=== PATIENT | female | born 1955 | race African-American/Black ===

== ENCOUNTER 2018-06-03 00:55 | Emergency (ER) | payer OTHER ==
[~2018-06-03] VITALS: Ht 157.5 cm; Wt 90.7 kg
--- NOTE | 2018-06-03 02:13 | PHYS DOC ---
Past Medical History Past Medical History: CHF, Dementia, Diabetes-Type II, Hypertension, P.U.D., Seizure, Other Additional Past Medical Histor: paci menegitis of the brain, pagent's disease, sickle beta thalacemia Past Surgical History: Cholecystectomy, , Other Additional Past Surgical Histo: fluid removal brain Alcohol Use: None Drug Use: None Adult General Chief Complaint Chief Complaint: ABDOMINAL PAIN [facility] HPI Patient is a 63 year old female who presents with right-sided abdominal pain. 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 Pain [proximally 4 days ago. Patient previously had an issue similar to this with a GI bleed/ulcers. Patient has had no previous surgical history. Unable to determine what paly's or provokes this discomfort. There is been no change in bowel habits, no blood in the stool, no nausea or vomiting. Pain radiates into the patient's right chest. No change with deep breaths. May be a little bit worse with walking however that the answer varies depending on how the question is asked.[] Review of Systems Review of Systems Constitutional: Denies fever or chills [] Eyes: Denies change in visual acuity, redness, or eye pain [] HENT: Denies nasal congestion or sore throat [] Respiratory: Denies cough or shortness of breath [] Cardiovascular: No additional information not addressed in HPI [] GI: See history of present illness[] : Denies dysuria or hematuria [] Musculoskeletal: Denies back pain or joint pain [] Integument: Denies rash or skin lesions [] Neurologic: Denies headache, focal weakness or sensory changes [] Endocrine: Denies polyuria or polydipsia [] All other systems were reviewed and found to be within normal limits, except as documented in this note. Current Medications Current Medications Current Medications Medications (Trade) Dose Ordered Sig/Anat Start Time Stop Time Status Last Admin Dose Admin Hyoscyamine (Anaspaz) 0.125 mg ONCE ONCE 06/03/18 02:30 06/03/18 02:31 DC 06/03/18 03:27 0.125 MG Info (CONTRAST GIVEN -- Rx MONITORING) 1 each PRN DAILY PRN 06/03/18 02:30 06/05/18 02:29 Iohexol (Omnipaque 300 Mg/ml) 75 ml 1X ONCE 06/03/18 02:30 06/03/18 02:31 DC 06/03/18 03:08 75 ML Ondansetron HCl (Zofran) 4 mg 1X ONCE 06/03/18 02:30 06/03/18 02:31 DC 06/03/18 03:28 4 MG Tramadol HCl (Ultram) 50 mg 1X ONCE 06/03/18 04:30 06/03/18 04:31 Allergies Allergies Allergies Coded Allergies Type Severity Reaction Last Updated Verified [place] And Derivatives Allergy Intermediate 06/03/18 Yes Penicillins Allergy Intermediate 06/03/18 Yes Physical Exam Physical Exam Constitutional: Well developed, well nourished, mild discomfort, non-toxic appearance. [] HENT: Normocephalic, atraumatic, bilateral external ears normal, oropharynx moist, no oral exudates, nose normal. [] Eyes: PERRLA, EOMI, conjunctiva normal, no discharge. [] Neck: Normal range of motion, no tenderness, supple, no stridor. [] Cardiovascular:Heart rate regular rhythm, no murmur [] Lungs & Thorax: Bilateral breath sounds clear to auscultation [] Abdomen: Bowel sounds normal, soft, right-sided tenderness, no masses, no pulsatile masses. No rebound, guarding, nor rigidity.[] Skin: Warm, dry, no erythema, no rash. [] Back: No tenderness, no CVA tenderness. [] Extremities: No tenderness, no cyanosis, no clubbing, ROM intact, no edema. [] Neurologic: Alert and oriented X2, normal motor function, normal sensory function, no focal deficits noted. [] Psychologic: Affect normal, mood normal. [] Current Patient Data Vital Signs Vital Signs Date Time Temp Pulse Resp B/P (MAP) Pulse Ox O2 Delivery O2 Flow Rate FiO2 06/03/18 01:38 99.4 57 18 154/77 (102) 99 Room Air 99.4 Lab Values Laboratory Tests Test 06/03/18 02:25 06/03/18 03:35 White Blood Count 6.6 x10^3/uL (4.0-11.0) Red Blood Count 5.06 x10^6/uL (3.50-5.40) Hemoglobin 10.4 g/dL (12.0-15.5) L Hematocrit 32.0 % (36.0-47.0) L Mean Corpuscular Volume 63 fL (79-100) L Mean Corpuscular Hemoglobin 21 pg (25-35) L Mean Corpuscular Hemoglobin Concent 33 g/dL (31-37) Red Cell Distribution Width 15.2 % (11.5-14.5) H Platelet Count 219 x10^3/uL (140-400) Neutrophils (%) (Auto) 55 % (31-73) Lymphocytes (%) (Auto) 37 % (24-48) Monocytes (%) (Auto) 6 % (0-9) Eosinophils (%) (Auto) 1 % (0-3) Basophils (%) (Auto) 1 % (0-3) Neutrophils # (Auto) 3.6 x10^3uL (1.8-7.7) Lymphocytes # (Auto) 2.5 x10^3/uL (1.0-4.8) Monocytes # (Auto) 0.4 x10^3/uL (0.0-1.1) Eosinophils # (Auto) 0.0 x10^3/uL (0.0-0.7) Basophils # (Auto) 0.1 x10^3/uL (0.0-0.2) Platelet Estimate Adequate (ADEQUATE) Hypochromasia Marked Poikilocytosis Slight Microcytosis Marked Spherocytes Occ Target Cells Occ Tear Drop Cells Occ Ovalocytes Few Prothrombin Time 13.4 SEC (11.7-14.0) Prothrombin Time INR 1.1 (0.8-1.1) Sodium Level 137 mmol/L (136-145) Potassium Level 3.5 mmol/L (3.5-5.1) Chloride Level 99 mmol/L (98-107) Carbon Dioxide Level 26 mmol/L (21-32) Anion Gap 12 (6-14) Blood Urea Nitrogen 15 mg/dL (7-20) Creatinine 1.0 mg/dL (0.6-1.0) Estimated GFR (Cockcroft-Gault) 67.5 BUN/Creatinine Ratio 15 (6-20) Glucose Level 118 mg/dL (70-99) H Calcium Level 9.1 mg/dL (8.5-10.1) Total Bilirubin 0.5 mg/dL (0.2-1.0) Aspartate Amino Transferase (AST) 12 U/L (15-37) L Alanine Aminotransferase (ALT) 9 U/L (14-59) L Alkaline Phosphatase 50 U/L (46-116) Troponin I Quantitative < 0.017 ng/mL (0.000-0.055) Total Protein 7.4 g/dL (6.4-8.2) Albumin 3.2 g/dL (3.4-5.0) L Albumin/Globulin Ratio 0.8 (1.0-1.7) L Lipase 142 U/L (73-393) Urine Collection Type Unknown Urine Color Yellow Urine Clarity Clear Urine pH 6.5 Urine Specific [place] >=1.030 Urine Protein Negative mg/dL (NEG-TRACE) Urine Glucose (UA) Negative mg/dL (NEG) Urine Ketones (Stick) Negative mg/dL (NEG) Urine Blood Negative (NEG) Urine Nitrite Negative (NEG) Urine Bilirubin Negative (NEG) Urine Urobilinogen Dipstick 1.0 mg/dL (0.2 mg/dL) Urine Leukocyte Esterase Negative (NEG) Urine RBC Occ /HPF (0-2) Urine WBC 1-4 /HPF (0-4) Urine Squamous Epithelial Cells Mod /LPF Urine Bacteria 0 /HPF (0-FEW) Urine Mucus Slight /LPF Laboratory Tests 06/03/18 02:25 Laboratory Tests 06/03/18 02:25 EKG EKG EKG shows a normal sinus rhythm no ST elevations, flipped T waves in the anterolateral leads. Normal axis, normal QTC. No old EKG available for comparison[] Radiology/Procedures Radiology/Procedures Chest x-ray shows no acute features CT scan of the abdomen shows no dilated loops of bowel to suggest obstruction. Ventral fat-containing intra-abdominal wall hernia with some edema and small amount of fluid within[] Course & Med Decision Making Course & Med Decision Making Pertinent Labs and Imaging studies reviewed. (See chart for details) ED course: Patient arrived, was placed in bed, tolerated exam well. After return of CT and laboratory findings, discussion was made with patient and family regarding those, reevaluation the abdomen showed that there was no palpable hernia able to be reduced. No midline tenderness. And no rebound guarding or rigidity. All questions were answered. Patient was discharged in improved condition. Medical decision making: There is no evidence of an acute MA/ACS, no pneumonia, no pneumothorax. No evidence of cholecystitis since patient has had previous cholecystectomy, no pancreatitis, no appendicitis, no obstruction, no perforated viscus. No evidence of urinary tract infection/pyelonephritis.[] Dragon Disclaimer Dragon Disclaimer This electronic medical record was generated, in whole or in part, using a voice recognition dictation system. Departure Departure Impression: Primary Impression: Abdominal pain Disposition: HOME, SELF-CARE Condition: GOOD Referrals: KEELY CROSS MD (PCP) Follow-up in 2 days Patient Instructions: Abdominal Pain Additional Instructions: Drink plenty of fluids. Eat a higher fiber diet to help with potential constipation issues. Follow-up with your doctor in 2 days. Return to the ER if worsening pain, unable to pass flatus, or any other concerns. Scripts Acetaminophen With Codeine (TYLENOL WITH CODEINE #3 TABLET) 1 Each Tablet 1 TAB PO PRN Q4HRS PRN for PAIN, #20 TAB Prov: DANIEL CHAND DO 06/03/18 Polyethylene Glycol 3350 (MIRALAX) 119 Gm Powder 1 TBS PO DAILY, #255 GM Prov: DANIEL CHAND DO 06/03/18 Hyoscyamine Sulfate (LEVSIN) 0.125 Mg Tablet 0.125 MG PO QID, #30 TAB Prov: DANIEL CHAND DO 06/03/18 Problem Qualifiers Primary Impression: Abdominal pain Abdominal location: unspecified location Qualified Codes: R10.9 - Unspecified abdominal pain DANIEL CHAND DO Jun 03, 2018 02:13
[2018-06-03] MEDS ORDERED: ONDANSETRON PF 4 MG/2 ML VIAL. IV ONE (02:30)
[2018-06-03] MEDS ORDERED: CONTRAST GIVEN. MC PRN (02:30)
[2018-06-03] MEDS ORDERED: HYOSCYAMINE 0.125 MG TAB.RAPDIS PO ONE (02:30)
[2018-06-03] MEDS ORDERED: IOHEXOL 300 MG/ML 100ML VIAL. IV ONE (02:30)
[2018-06-03 02:33] LABS: BASO # 0.1 x10^3/uL (0.0-0.2); BASO % 1 % (0-3); EOS % 1 % (0-3); HEMOGLOBIN 10.4 g/dL (12.0-15.5); LYMPH # 2.5 x10^3/uL (1.0-4.8); LYMPH % 37 % (24-48); MEAN CORPUSCULAR HEMOGLOBIN 21 pg (25-35); MEAN CORPUSCULAR HGB CONC 33 g/dL (31-37); MEAN CORPUSCULAR VOLUME 63 fL (79-100); MONO # 0.4 x10^3/uL (0.0-1.1); MONO % 6 % (0-9); NEUT # 3.6 x10^3uL (1.8-7.7); NEUT % 55 % (31-73); PLATELET COUNT 219 x10^3/uL (140-400); RED BLOOD COUNT 5.06 x10^6/uL (3.50-5.40); RED CELL DISTRIBUTION WIDTH 15.2 % (11.5-14.5); WHITE BLOOD COUNT 6.6 x10^3/uL (4.0-11.0)
[2018-06-03 02:44] LABS: CALCIUM 9.1 mg/dL (8.5-10.1); GFR 67.5; POTASSIUM 3.5 mmol/L (3.5-5.1)
[2018-06-03 02:49] LABS: ALBUMIN 3.2 g/dL (3.4-5.0); ALBUMIN/GLOBULIN RATIO 0.8 (1.0-1.7); TOTAL BILIRUBIN 0.5 mg/dL (0.2-1.0); TOTAL PROTEIN 7.4 g/dL (6.4-8.2)
[2018-06-03 02:51] LABS: PROTHROMBIN TIME PATIENT 13.4 SEC (11.7-14.0)
[2018-06-03 03:10] LABS: HYPOCHROMIA MARKED; MICROCYTOSIS MARKED; OVALOCYTES FEW; PLT ESTIMATE ADEQUATE (ADEQUATE); POIKILOCYTOSIS SLIGHT; SPHEROCYTES OCC; TARGET CELLS OCC; TEAR DROP CELLS OCC
[2018-06-03 03:50] LABS: BILIRUBIN,URINE NEGATIVE (NEG); CLARITY,URINE CLEAR; COLOR,URINE YELLOW; NITRITE,URINE NEGATIVE (NEG); PH,URINE 6.5; PROTEIN,URINE NEGATIVE (NEG-TRACE)
--- NOTE | 2018-06-03 03:55 | RAD ---
INDICATION: RIGHT SIDED ABDOMINAL PAIN
75ML OMNI 300 COMPARISON: None. TECHNIQUE: Axial CT images obtained through the abdomen and pelvis with contrast. One or more of the following individualized dose reduction techniques were utilized for this examination: 1. Automated exposure control; 2. Adjustment of the mA and/or kV according to patient size; 3. Use of iterative reconstruction technique. FINDINGS: Calcific atherosclerosis without abdominal aortic aneurysm. No intrahepatic bile duct dilation. Subcentimeter low-density hepatic lesion which is too small to characterize. Postcholecystectomy changes. No peripancreatic fluid collection. Spleen unremarkable. No left-sided hydronephrosis. Small amount of fluid within the urinary bladder. No right-sided hydronephrosis. Ventral fat-containing anterior abdominal wall hernia with some edema and fluid within. Colonic diverticulosis. No definite periappendiceal inflammation. No dilated loops of bowel to suggest obstruction. Degenerative changes throughout the spine with multilevel central canal and neural foraminal stenosis as well as mild scoliotic curvature. Grade 1 anterolisthesis of L4 on 5. IMPRESSION: 1. No dilated loops of bowel to suggest obstruction. 2. Ventral fat-containing intra-abdominal wall hernia with some edema and small amount of fluid within. Electronically signed by: Mihai Stephen MD (06/03/2018 3:52 AM) [id number]
[2018-06-03 03:56] LABS: BACTERIA,URINE 0 /HPF (0-FEW); RBC,URINE OCC /HPF (0-2); SQUAMOUS EPITHELIAL CELL,UR MOD /LPF
[2018-06-03 04:30] VITALS: BP 124/70
[2018-06-03] MEDS ORDERED: traMADol 50 MG TABLET PO ONE (04:30)
[2018-06-03] MEDS ORDERED: POLY119P4 PO (04:32)
[2018-06-03] MEDS ORDERED: HYOS0.1264 PO (04:32)
[2018-06-03] MEDS ORDERED: ACET-704 PO (04:33)
[2018-06-03] MEDS ORDERED: ACETAMINOPHEN/CODEINE 300/30MG TABLET. PO ONE (05:00)
--- NOTE | 2018-06-03 07:11 | EKG ---
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
--- NOTE | 2018-06-03 09:54 | RAD ---
PORTABLE CHEST 1V History: CHEST PAIN Comparison: None. Findings: Single view of the chest is submitted. There is no infiltrate, pneumothorax, or effusion. The pericardial cardiac silhouette is within normal limits in size. Impression: 1. There is no evidence of acute cardiopulmonary disease. Electronically signed by: Wei Ferrell MD (06/03/2018 9:51 AM) [id number]
== END 2018-06-03 04:52 | disposition home or self-care (01) ==
LOC: ER 00:55
DX: R10.9 Unspecified abdominal pain (principal); I11.0 Hypertensive heart disease with heart failure; I50.9 Heart failure, unspecified; E11.9 Type 2 diabetes mellitus without complications; F03.90 Unspecified dementia, unspecified severity, without behavioral disturbance, psychotic disturbance, mood disturbance, and anxiety; Z90.49 Acquired absence of other specified parts of digestive tract; Z88.0 Allergy status to penicillin; Z91.018 Allergy to other foods
CPT/HCPCS: 36415; 71045; 74177; 80053; 81001; 83690; 84484; 85025; 85610; 93005; 96374; 99285; J2405; Q9967

== ENCOUNTER 2018-09-12 05:35 | Inpatient (IN) | payer SELFPAY ==
[~2018-09-12] VITALS: Ht 160 cm; Wt 101.4 kg
[~2018-09-12 05:35] MED LIST: ACET-704 PO; HYDR-3164 PO; HYOS0.1264 PO; POLY119P4 PO; PRED-220 PO
[2018-09-12 06:29] LABS: BILIRUBIN,URINE NEGATIVE (NEG); CLARITY,URINE CLEAR; COLOR,URINE YELLOW; NITRITE,URINE NEGATIVE (NEG); PH,URINE 6.5; PROTEIN,URINE NEGATIVE (NEG-TRACE); UROBILINOGEN,URINE 0.2 mg/dL (0.2 mg/dL)
[2018-09-12] MEDS ORDERED: cloNIDine HCL 0.1 MG TABLET PO ONE (06:30)
[2018-09-12] MEDS ORDERED: ASPIRIN CHEWABLE 81 MG TABLET. PO ONE (06:30)
[2018-09-12 06:37] LABS: BACTERIA,URINE FEW /HPF (0-FEW); RBC,URINE OCC /HPF (0-2); SQUAMOUS EPITHELIAL CELL,UR FEW /LPF; WBC,URINE OCC /HPF (0-4)
[2018-09-12 07:31] LABS: BASO # 0.1 x10^3/uL (0.0-0.2); BASO % 1 % (0-3); EOS % 0 % (0-3); HEMATOCRIT 29.1 % (36.0-47.0); HEMOGLOBIN 9.1 g/dL (12.0-15.5); LYMPH # 2.7 x10^3/uL (1.0-4.8); LYMPH % 29 % (24-48); MEAN CORPUSCULAR HEMOGLOBIN 20 pg (25-35); MEAN CORPUSCULAR HGB CONC 31 g/dL (31-37); MEAN CORPUSCULAR VOLUME 64 fL (79-100); MONO # 0.4 x10^3/uL (0.0-1.1); MONO % 4 % (0-9); NEUT # 5.9 x10^3uL (1.8-7.7); NEUT % 65 % (31-73); PLATELET COUNT 233 x10^3/uL (140-400); RED BLOOD COUNT 4.58 x10^6/uL (3.50-5.40); RED CELL DISTRIBUTION WIDTH 16.2 % (11.5-14.5); WHITE BLOOD COUNT 9.1 x10^3/uL (4.0-11.0)
--- NOTE | 2018-09-12 07:37 | RAD ---
Portable chest, 09/12/2018: HISTORY: Chest pain Comparison is made to a study from 06/03/2018. The heart size and pulmonary vascularity are within normal limits. No pulmonary infiltrate is seen. There is no evidence of pleural fluid. IMPRESSION: No acute cardiopulmonary abnormality is detected. Electronically signed by: Edil Leo MD (09/12/2018 7:34 AM) [facility]
[2018-09-12 07:56] LABS: ANION GAP 10 (6-14); BLOOD UREA NITROGEN 13 mg/dL (7-20); BUN/CREATININE RATIO 14 (6-20); CALCIUM 8.9 mg/dL (8.5-10.1); CARBON DIOXIDE 27 mmol/L (21-32); CHLORIDE 102 mmol/L (98-107); CREATININE 0.9 mg/dL (0.6-1.0); GFR 76.3; GLUCOSE 92 mg/dL (70-99); POTASSIUM 4.2 mmol/L (3.5-5.1); SODIUM 139 mmol/L (136-145)
[2018-09-12 07:59] LABS: ALBUMIN 3.2 g/dL (3.4-5.0); ALBUMIN/GLOBULIN RATIO 0.7 (1.0-1.7); ALK PHOS 70 U/L (46-116); ALT (SGPT) 12 U/L (14-59); AST (SGOT) 17 U/L (15-37); MAGNESIUM 2.2 mg/dL (1.8-2.4); TOTAL BILIRUBIN 0.6 mg/dL (0.2-1.0); TOTAL PROTEIN 7.6 g/dL (6.4-8.2)
[2018-09-12 08:20] LABS: VAL ACID 15 mcg/mL (50-100)
[2018-09-12] MEDS ORDERED: VALPROIC ACID (AS SODIUM SALT) 500 MG in IV DEXTROSE 5% 50 ML IV STA (08:20)
--- NOTE | 2018-09-12 08:38 | PHYS DOC ---
Past Medical History Past Medical History: CHF, Dementia, Diabetes-Type II, Hypertension, P.U.D., Seizure, Other Additional Past Medical Histor: paci menegitis of the brain, pagent's disease, sickle beta thalacemia Past Surgical History: Cholecystectomy, , Other Additional Past Surgical Histo: fluid removal brain Alcohol Use: None Drug Use: None Adult General Chief Complaint Chief Complaint: BACK PAIN - NO INJURY HPI HPI Patient is a 63-year-old female who presents with numerous complaints to include body aches all over and has also been having some chest pain that started last night. Patient's daughter indicates that she thinks that her mother has also been having recurrent seizures at home where her face draws up and her right hand started shaking. Patient does have history of seizures and takes Depakote but states that her last dose of Depakote was 4 days ago. Patient is out of most for medications and is not able to get them filled. Patient is unable to describe the chest pain that she has been having but currently she states that the pain is lateral on both sides of her chest as well as her back. She denies any nausea or vomiting. Additional history is somewhat limited as patient is very poor historian. Review of Systems Review of Systems Constitutional: Denies fever or chills [] Respiratory: Denies cough or shortness of breath [] Cardiovascular: No additional information not addressed in HPI [] GI: Denies abdominal pain, nausea, vomiting or diarrhea [] Musculoskeletal: Complains of back and diffuse body aches and pain [] Integument: Denies rash or skin lesions [] Neurologic: Denies headache, focal weakness or sensory changes. Complains of seizure-like activity. [] All other systems were reviewed and found to be within normal limits, except as documented in this note. Current Medications Current Medications Current Medications Medications (Trade) Dose Ordered Sig/Anat Start Time Stop Time Status Last Admin Dose Admin Aspirin (Children'S Aspirin) 324 mg 1X ONCE 09/12/18 06:30 09/12/18 06:31 DC 09/12/18 07:33 324 MG Clonidine HCl (Catapres) 0.2 mg 1X ONCE 09/12/18 06:30 09/12/18 06:31 DC 09/12/18 07:36 0.2 MG Valproic Acid 500 mg/Dextrose 55 ml @ 55 mls/hr 1X STAT 09/12/18 08:20 09/12/18 09:19 DC 09/12/18 08:51 55 MLS/HR Allergies Allergies Allergies Coded Allergies Type Severity Reaction Last Updated Verified [place] And Derivatives Allergy Intermediate 06/03/18 Yes Penicillins Allergy Intermediate 06/03/18 Yes Physical Exam Physical Exam Constitutional: Well developed, well nourished, no acute distress, non-toxic appearance. [] HENT: Normocephalic, atraumatic, bilateral external ears normal, oropharynx moist, no oral exudates, nose normal. [] Eyes: PERRLA, EOMI, conjunctiva normal, no discharge. [] Neck: Normal range of motion, no tenderness, supple, no stridor. [] Cardiovascular: Regular rate and rhythm[] Lungs & Thorax: Bilateral breath sounds clear to auscultation [] Abdomen: Bowel sounds normal, soft, no tenderness. [] Skin: Warm, dry, no erythema, no rash. [] Extremities: No tenderness, no cyanosis, no clubbing, ROM intact, no edema. [] Neurologic: Awake and alert, no focal deficits noted. [] Current Patient Data Vital Signs Vital Signs Date Time Temp Pulse Resp B/P (MAP) Pulse Ox O2 Delivery O2 Flow Rate FiO2 09/12/18 07:36 69 193/98 09/12/18 06:15 98.3 15 100 Room Air 98.3 Lab Values Laboratory Tests Test 09/12/18 06:10 09/12/18 07:17 Urine Collection Type Unknown Urine Color Yellow Urine Clarity Clear Urine pH 6.5 Urine Specific [place] 1.010 Urine Protein Negative mg/dL (NEG-TRACE) Urine Glucose (UA) Negative mg/dL (NEG) Urine Ketones (Stick) Negative mg/dL (NEG) Urine Blood Negative (NEG) Urine Nitrite Negative (NEG) Urine Bilirubin Negative (NEG) Urine Urobilinogen Dipstick 0.2 mg/dL (0.2 mg/dL) Urine Leukocyte Esterase Negative (NEG) Urine RBC Occ /HPF (0-2) Urine WBC Occ /HPF (0-4) Urine Squamous Epithelial Cells Few /LPF Urine Bacteria Few /HPF (0-FEW) White Blood Count 9.1 x10^3/uL (4.0-11.0) Red Blood Count 4.58 x10^6/uL (3.50-5.40) Hemoglobin 9.1 g/dL (12.0-15.5) L Hematocrit 29.1 % (36.0-47.0) L Mean Corpuscular Volume 64 fL (79-100) L Mean Corpuscular Hemoglobin 20 pg (25-35) L Mean Corpuscular Hemoglobin Concent 31 g/dL (31-37) Red Cell Distribution Width 16.2 % (11.5-14.5) H Platelet Count 233 x10^3/uL (140-400) Neutrophils (%) (Auto) 65 % (31-73) Lymphocytes (%) (Auto) 29 % (24-48) Monocytes (%) (Auto) 4 % (0-9) Eosinophils (%) (Auto) 0 % (0-3) Basophils (%) (Auto) 1 % (0-3) Neutrophils # (Auto) 5.9 x10^3uL (1.8-7.7) Lymphocytes # (Auto) 2.7 x10^3/uL (1.0-4.8) Monocytes # (Auto) 0.4 x10^3/uL (0.0-1.1) Eosinophils # (Auto) 0.0 x10^3/uL (0.0-0.7) Basophils # (Auto) 0.1 x10^3/uL (0.0-0.2) Platelet Estimate Pending Sodium Level 139 mmol/L (136-145) Potassium Level 4.2 mmol/L (3.5-5.1) Chloride Level 102 mmol/L (98-107) Carbon Dioxide Level 27 mmol/L (21-32) Anion Gap 10 (6-14) Blood Urea Nitrogen 13 mg/dL (7-20) Creatinine 0.9 mg/dL (0.6-1.0) Estimated GFR (Cockcroft-Gault) 76.3 BUN/Creatinine Ratio 14 (6-20) Glucose Level 92 mg/dL (70-99) Calcium Level 8.9 mg/dL (8.5-10.1) Magnesium Level 2.2 mg/dL (1.8-2.4) Total Bilirubin 0.6 mg/dL (0.2-1.0) Aspartate Amino Transferase (AST) 17 U/L (15-37) Alanine Aminotransferase (ALT) 12 U/L (14-59) L Alkaline Phosphatase 70 U/L (46-116) Troponin I Quantitative < 0.017 ng/mL (0.000-0.055) MS-Lne-Q-Type Natriuretic Peptide 319 pg/mL (0-124) H Total Protein 7.6 g/dL (6.4-8.2) Albumin 3.2 g/dL (3.4-5.0) L Albumin/Globulin Ratio 0.7 (1.0-1.7) L Valproic Acid Level 15 mcg/mL (50-100) L Valproic Acid Last Dose Date 09/08/18 Valproic Acid Last Dose Time 1800 Laboratory Tests 09/12/18 07:17 Laboratory Tests 09/12/18 07:17 EKG EKG [] Radiology/Procedures Radiology/Procedures [] Course & Med Decision Making Course & Med Decision Making Pertinent Labs and Imaging studies reviewed. (See chart for details) [] Dragon Disclaimer Dragon Disclaimer This electronic medical record was generated, in whole or in part, using a voice recognition dictation system. Departure Departure Impression: Primary Impression: Chest pain Additional Impressions: Hypertensive urgency Seizure disorder Disposition: ADMITTED INPATIENT Admitting Physician: Other (Dr. Quiroz) Condition: IMPROVED Referrals: UNKNOWN PCP NAME (PCP) Problem Qualifiers Primary Impression: Chest pain Chest pain type: unspecified Qualified Codes: R07.9 - Chest pain, unspecified DAVID ZAMBRANO Jr. DO Sep 12, 2018 08:38
[2018-09-12 10:45] VITALS: BP 168/101
[2018-09-12 10:48] LABS: PLT ESTIMATE ADEQUATE (ADEQUATE); POLYCHROMASIA PRESENT
[2018-09-12 10:58] LABS: ANISOCYTOSIS SLIGHT; HYPOCHROMIA PRESENT; MICROCYTOSIS MARKED
[2018-09-12 10:59] LABS: OVALOCYTES FEW; SCHISTOCYTES OCC; TARGET CELLS FEW; TEAR DROP CELLS FEW
--- NOTE | 2018-09-12 11:24 | PDOC2 ---
CARDIAC CONSULT DATE OF CONSULT Date of Consult DATE: 09/12/18 TIME: 11:18 REASON FOR CONSULT Reason for Consult: Chest pain Hypertensive Urgency REFERRING PHYSICIAN Referring Physician: Dr. Veras SOURCE Source: Chart review, Patient HISTORY OF PRESENT ILLNESS HISTORY OF PRESENT ILLNESS This is a 63 yo female who presented secondary to chest pain, body aches, and possible seizure. Daughter reports she has been out of all of her medications for the last week. Associated with VELASQUEZ. Daughter knew her BP was elevated. Was diagnosed with HF at [facility] 01/2018. Daughter reports heart was pumping at 20% at that time. Patient reports improvement of chest pain. Denies any associated shortness of breath, dizziness, diaphoresis, palpitations, or nausea/vomiting. PAST MEDICAL HISTORY Cardiovascular: CHF (NICM; daughter reports heart was pumping at 20% 01/2018), HTN Pulmonary: No pertinent hx CENTRAL NERVOUS SYSTEM: Dementia, Seizure, Other (meningitis ) GI: No pertinent hx Heme/Onc: No pertinent hx Hepatobiliary: No pertinent hx Psych: No pertinent hx Musculoskeletal: Other (Paget's Disease) Rheumatologic: No pertinent hx Infectious disease: No pertinent hx ENT: No pertinent hx Renal/: No pertinent hx Endocrine: Diabetes Dermatology: No pertinent hx FAMILY HISTORY Family History: Hypertension SOCIAL HISTORY Smoke: No ALCOHOL: none Drugs: None Lives: with Family CURRENT MEDICATIONS CURRENT MEDICATIONS Current Medications Medications (Trade) Dose Ordered Sig/Anat Route PRN Reason Start Time Stop Time Status Last Admin Dose Admin Aspirin (Children'S Aspirin) 324 mg 1X ONCE PO 09/12/18 06:30 09/12/18 06:31 DC 09/12/18 07:33 Clonidine HCl (Catapres) 0.2 mg 1X ONCE PO 09/12/18 06:30 09/12/18 06:31 DC 09/12/18 07:36 Valproic Acid 500 mg/Dextrose 55 ml @ 55 mls/hr 1X STAT IV 09/12/18 08:20 09/12/18 09:19 DC 09/12/18 08:51 ALLERGIES ALLERGIES: Coded Allergies: [place] And Derivatives (Verified Allergy, Intermediate, 06/03/18) Penicillins (Verified Allergy, Intermediate, 06/03/18) ROS Review of System 14 point ROS conducted with pertinent positives noted above in HPI. PHYSICAL EXAM General: Alert, Oriented X3, Cooperative, No acute distress HEENT: Atraumatic, Mucous membr. moist/pink Lungs: Clear to auscultation, Normal air movement Heart: Regular rate, Normal S1, Normal S2 Abdomen: Soft, No tenderness Extremities: Normal pulses Skin: No significant lesion Neuro: Normal speech, Sensation intact Psych/Mental Status: Mood NL MUSCULOSKELETAL: Osteoarthritic changes both hands VITALS VITALS Vital Signs Date Time Temp Pulse Resp B/P (MAP) Pulse Ox O2 Delivery O2 Flow Rate FiO2 09/12/18 07:36 69 193/98 09/12/18 06:15 98.3 15 100 Room Air 98.3 LABS Lab: Laboratory Tests Test 09/12/18 06:10 09/12/18 07:17 Urine Collection Type Unknown Urine Color Yellow Urine Clarity Clear Urine pH 6.5 Urine Specific [place] 1.010 Urine Protein Negative mg/dL (NEG-TRACE) Urine Glucose (UA) Negative mg/dL (NEG) Urine Ketones (Stick) Negative mg/dL (NEG) Urine Blood Negative (NEG) Urine Nitrite Negative (NEG) Urine Bilirubin Negative (NEG) Urine Urobilinogen Dipstick 0.2 mg/dL (0.2 mg/dL) Urine Leukocyte Esterase Negative (NEG) Urine RBC Occ /HPF (0-2) Urine WBC Occ /HPF (0-4) Urine Squamous Epithelial Cells Few /LPF Urine Bacteria Few /HPF (0-FEW) White Blood Count 9.1 x10^3/uL (4.0-11.0) Red Blood Count 4.58 x10^6/uL (3.50-5.40) Hemoglobin 9.1 g/dL (12.0-15.5) Hematocrit 29.1 % (36.0-47.0) Mean Corpuscular Volume 64 fL (79-100) Mean Corpuscular Hemoglobin 20 pg (25-35) Mean Corpuscular Hemoglobin Concent 31 g/dL (31-37) Red Cell Distribution Width 16.2 % (11.5-14.5) Platelet Count 233 x10^3/uL (140-400) Neutrophils (%) (Auto) 65 % (31-73) Lymphocytes (%) (Auto) 29 % (24-48) Monocytes (%) (Auto) 4 % (0-9) Eosinophils (%) (Auto) 0 % (0-3) Basophils (%) (Auto) 1 % (0-3) Neutrophils # (Auto) 5.9 x10^3uL (1.8-7.7) Lymphocytes # (Auto) 2.7 x10^3/uL (1.0-4.8) Monocytes # (Auto) 0.4 x10^3/uL (0.0-1.1) Eosinophils # (Auto) 0.0 x10^3/uL (0.0-0.7) Basophils # (Auto) 0.1 x10^3/uL (0.0-0.2) Platelet Estimate Adequate (ADEQUATE) Polychromasia Present Hypochromasia Present Anisocytosis Slight Microcytosis Marked Target Cells Few Tear Drop Cells Few Ovalocytes Few Schistocytes Occ Sodium Level 139 mmol/L (136-145) Potassium Level 4.2 mmol/L (3.5-5.1) Chloride Level 102 mmol/L (98-107) Carbon Dioxide Level 27 mmol/L (21-32) Anion Gap 10 (6-14) Blood Urea Nitrogen 13 mg/dL (7-20) Creatinine 0.9 mg/dL (0.6-1.0) Estimated GFR (Cockcroft-Gault) 76.3 BUN/Creatinine Ratio 14 (6-20) Glucose Level 92 mg/dL (70-99) Calcium Level 8.9 mg/dL (8.5-10.1) Magnesium Level 2.2 mg/dL (1.8-2.4) Total Bilirubin 0.6 mg/dL (0.2-1.0) Aspartate Amino Transf (AST/SGOT) 17 U/L (15-37) Alanine Aminotransferase (ALT/SGPT) 12 U/L (14-59) Alkaline Phosphatase 70 U/L (46-116) Troponin I Quantitative < 0.017 ng/mL (0.000-0.055) ED-Biq-C-Type Natriuretic Peptide 319 pg/mL (0-124) Total Protein 7.6 g/dL (6.4-8.2) Albumin 3.2 g/dL (3.4-5.0) Albumin/Globulin Ratio 0.7 (1.0-1.7) Valproic Acid (Depakene) Level 15 mcg/mL (50-100) Valproic Acid Last Dose Date 09/08/18 Valproic Acid Last Dose Time 1800 ASSESSMENT/PLAN ASSESSMENT/PLAN 1. Chest pain, atypical. Troponin negative x2. AMI ruled out. Most probably secondary to malignant HTN 2. Malignant HTN; better controlled 3. Encephalopathy, hypertensive 4. Chronic systolic HF; compensated 5. H/o NICM; LVEF reportedly 20% per daughter 6. Meningitis 7. Paget's disease with chronic pain 8. Seizure disorder Recommendations Resume home antiHTN therapy when list is available Hydralazine IV PRN Echo to assess LV systolic function Trend troponin Obtain cardiac records from [facility] Further recommendations pending above, SUBHA LESTER APRN Sep 12, 2018 11:24
[2018-09-12] MEDS ORDERED: hydrALAZINE 20 MG/ML VIAL. IVP PRN (11:30)
--- NOTE | 2018-09-12 11:34 | EKG ---
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
[2018-09-12 11:53] LABS: CHOLESTEROL/HDL RATIO 2.3
[2018-09-12] MEDS ORDERED: HYDROcodone/APAP 5/325MG 1 TAB TABLET PO PRN (12:45)
[2018-09-12] MEDS ORDERED: ACETAMINOPHEN/CODEINE 300/30MG TABLET. PO PRN (12:45)
--- NOTE | 2018-09-12 12:45 | PDOC1 ---
History and Physical Date of Admission Date of Admission September 12 2018 Identification/Chief Complaint Chief Complaint I am out of my meds Problems: (1) Hypertensive urgency (2) Seizure disorder Source Source: Chart review, Patient History of Present Illness History of Present Illness Chief Complaint Chief Complaint: BACK PAIN OR INJURY HPI HPI Patient is a 63 year old female multiple medical comorbidities including diabetes type 2 hypertension peptic ulcer disease seizure activity Paget's disease and recently diagnosed with congestive heart failure in summer of last year. She comes today with a history of more or less 1 week off being out of her medications. The patient unfortunately due to recent hospital stays and unable to follow up with her primary care physician ran out of her medications and also financial constraints made it very difficult for her to have access to her meds. The patient Presents to ER today for evaluation of low back pain. Patient has history of chronic back pain due to Paget's disease. Patient denies any fever, no nausea vomiting, no abdominal pain. Patient denies any injury. Patient finally got prescriptions for her medications and despite having the prescriptions they were not ectopic by her son and this prompted most likely a seizure-like activity that was witnessed by her daughter who is at bedside. The patient at the time of my evaluation is in no apparent distress unfortunately she has some cognitive impairment as a consequence of prior strokes but she does not seem to exhibit any neurological deficits at the time of my evaluation. The patient was somewhat confused as per her daughter most likely related to seizure activity plus minus the fact that the patient came with a hypertensive urgency which could also give her some degree of encephalopathy. Patient's daughter refers that she had the usual abnormal right upper extremity erratic movements and some droop to her face that she gets whenever she gets one of her seizure activities going. Patient also complained of some chest pressure as a consequence of her uncontrolled hypertension is being admitted at the request of the ER for observation and to restart her medications and control her vital signs Detail to the patient and her daughter who is at bedside Past Medical History Cardiovascular: CHF (NICM; LVEF 20%), HTN CENTRAL NERVOUS SYSTEM: Dementia, Seizure, Other (meningitis ) Current Problem List Problem List Problems Medical Problems: (1) Chest pain Status: Acute (2) Hypertensive urgency Status: Acute (3) Seizure disorder Status: Acute Current Medications Current Medications Current Medications Medications (Trade) Dose Ordered Sig/Anat Start Time Stop Time Status Last Admin Dose Admin Aspirin (Children'S Aspirin) 324 mg 1X ONCE 2/21/19 06:30 09/12/18 06:31 DC 09/12/18 07:33 324 MG Clonidine HCl (Catapres) 0.2 mg 1X ONCE 09/12/18 06:30 09/12/18 06:31 DC 09/12/18 07:36 0.2 MG Hydralazine HCl (Apresoline Inj) 10 mg PRN Q4HRS PRN 09/12/18 11:30 Valproic Acid 500 mg/Dextrose 55 ml @ 55 mls/hr 1X STAT 09/12/18 08:20 09/12/18 09:19 DC 09/12/18 08:51 55 MLS/HR Allergies Allergies Allergies Coded Allergies Type Severity Reaction Last Updated Verified Grimes And Derivatives Allergy Intermediate 06/03/18 Yes Penicillins Allergy Intermediate 06/03/18 Yes ROS Review of System CONSTITUTIONAL: No fever or chills EYES: No recent changes SKIN: No rash or itching CARDIOVASCULAR: No chest pain, syncope, palpitations, or edema RESPIRATORY: No SOB or cough GASTROINTESTINAL: No nausea, vomiting or abdominal pain NEUROLOGICAL: No headaches or weakness ENDOCRINE: No cold or heat intolerance GENITOURINARY: No urgency or frequency of urination MUSCULOSKELETAL: No back pain or joint pain LYMPHATICS: No enlarged lymph nodes PSYCHIATRIC: No anxiety or depression Unreliable secondary to her cognitive impairment overall the patient looks stable Physical Exam Physical Exam GEN.: No apparent distress. Alert and oriented. HEENT: Head is normocephalic, atraumatic NECK: Supple. LUNGS: Clear to auscultation. HEART: RRR, S1, S2 present. Systolic murmur 2 out of 6 intensity Peripheral pulses intact ABDOMEN: Soft, nontender. Positive bowel sounds. EXTREMITIES: Without any cyanosis. NEUROLOGIC: Normal speech, normal tone PSYCHIATRIC: Normal affect, normal mood. SKIN: No ulcerations Vitals Vitals Vital Signs Date Time Temp Pulse Resp B/P (MAP) Pulse Ox O2 Delivery O2 Flow Rate FiO2 09/12/18 10:45 98.1 62 20 168/101 (123) 100 Room Air 98.1 Labs Labs Laboratory Tests Test 09/12/18 06:10 09/12/18 07:17 Urine Collection Type Unknown Urine Color Yellow Urine Clarity Clear Urine pH 6.5 Urine Specific [place] 1.010 Urine Protein Negative mg/dL (NEG-TRACE) Urine Glucose (UA) Negative mg/dL (NEG) Urine Ketones (Stick) Negative mg/dL (NEG) Urine Blood Negative (NEG) Urine Nitrite Negative (NEG) Urine Bilirubin Negative (NEG) Urine Urobilinogen Dipstick 0.2 mg/dL (0.2 mg/dL) Urine Leukocyte Esterase Negative (NEG) Urine RBC Occ /HPF (0-2) Urine WBC Occ /HPF (0-4) Urine Squamous Epithelial Cells Few /LPF Urine Bacteria Few /HPF (0-FEW) White Blood Count 9.1 x10^3/uL (4.0-11.0) Red Blood Count 4.58 x10^6/uL (3.50-5.40) Hemoglobin 9.1 g/dL (12.0-15.5) Hematocrit 29.1 % (36.0-47.0) Mean Corpuscular Volume 64 fL (79-100) Mean Corpuscular Hemoglobin 20 pg (25-35) Mean Corpuscular Hemoglobin Concent 31 g/dL (31-37) Red Cell Distribution Width 16.2 % (11.5-14.5) Platelet Count 233 x10^3/uL (140-400) Neutrophils (%) (Auto) 65 % (31-73) Lymphocytes (%) (Auto) 29 % (24-48) Monocytes (%) (Auto) 4 % (0-9) Eosinophils (%) (Auto) 0 % (0-3) Basophils (%) (Auto) 1 % (0-3) Neutrophils # (Auto) 5.9 x10^3uL (1.8-7.7) Lymphocytes # (Auto) 2.7 x10^3/uL (1.0-4.8) Monocytes # (Auto) 0.4 x10^3/uL (0.0-1.1) Eosinophils # (Auto) 0.0 x10^3/uL (0.0-0.7) Basophils # (Auto) 0.1 x10^3/uL (0.0-0.2) Platelet Estimate Adequate (ADEQUATE) Polychromasia Present Hypochromasia Present Anisocytosis Slight Microcytosis Marked Target Cells Few Tear Drop Cells Few Ovalocytes Few Schistocytes Occ Sodium Level 139 mmol/L (136-145) Potassium Level 4.2 mmol/L (3.5-5.1) Chloride Level 102 mmol/L (98-107) Carbon Dioxide Level 27 mmol/L (21-32) Anion Gap 10 (6-14) Blood Urea Nitrogen 13 mg/dL (7-20) Creatinine 0.9 mg/dL (0.6-1.0) Estimated GFR (Cockcroft-Gault) 76.3 BUN/Creatinine Ratio 14 (6-20) Glucose Level 92 mg/dL (70-99) Calcium Level 8.9 mg/dL (8.5-10.1) Magnesium Level 2.2 mg/dL (1.8-2.4) Total Bilirubin 0.6 mg/dL (0.2-1.0) Aspartate Amino Transf (AST/SGOT) 17 U/L (15-37) Alanine Aminotransferase (ALT/SGPT) 12 U/L (14-59) Alkaline Phosphatase 70 U/L (46-116) Troponin I Quantitative < 0.017 ng/mL (0.000-0.055) PA-Ydi-A-Type Natriuretic Peptide 319 pg/mL (0-124) Total Protein 7.6 g/dL (6.4-8.2) Albumin 3.2 g/dL (3.4-5.0) Albumin/Globulin Ratio 0.7 (1.0-1.7) Triglycerides Level 54 mg/dL (0-150) Cholesterol Level 170 mg/dL (0-200) LDL Cholesterol, Calculated 85 mg/dL (0-100) VLDL Cholesterol, Calculated 11 mg/dL (0-40) Non-HDL Cholesterol Calculated 96 mg/dL (0-129) HDL Cholesterol 74 mg/dL (40-60) Cholesterol/HDL Ratio 2.3 Valproic Acid (Depakene) Level 15 mcg/mL (50-100) Valproic Acid Last Dose Date 09/08/18 Valproic Acid Last Dose Time 1800 Laboratory Tests Test 09/12/18 06:10 09/12/18 07:17 Urine Collection Type Unknown Urine Color Yellow Urine Clarity Clear Urine pH 6.5 Urine Specific [place] 1.010 Urine Protein Negative mg/dL (NEG-TRACE) Urine Glucose (UA) Negative mg/dL (NEG) Urine Ketones (Stick) Negative mg/dL (NEG) Urine Blood Negative (NEG) Urine Nitrite Negative (NEG) Urine Bilirubin Negative (NEG) Urine Urobilinogen Dipstick 0.2 mg/dL (0.2 mg/dL) Urine Leukocyte Esterase Negative (NEG) Urine RBC Occ /HPF (0-2) Urine WBC Occ /HPF (0-4) Urine Squamous Epithelial Cells Few /LPF Urine Bacteria Few /HPF (0-FEW) White Blood Count 9.1 x10^3/uL (4.0-11.0) Red Blood Count 4.58 x10^6/uL (3.50-5.40) Hemoglobin 9.1 g/dL (12.0-15.5) Hematocrit 29.1 % (36.0-47.0) Mean Corpuscular Volume 64 fL (79-100) Mean Corpuscular Hemoglobin 20 pg (25-35) Mean Corpuscular Hemoglobin Concent 31 g/dL (31-37) Red Cell Distribution Width 16.2 % (11.5-14.5) Platelet Count 233 x10^3/uL (140-400) Neutrophils (%) (Auto) 65 % (31-73) Lymphocytes (%) (Auto) 29 % (24-48) Monocytes (%) (Auto) 4 % (0-9) Eosinophils (%) (Auto) 0 % (0-3) Basophils (%) (Auto) 1 % (0-3) Neutrophils # (Auto) 5.9 x10^3uL (1.8-7.7) Lymphocytes # (Auto) 2.7 x10^3/uL (1.0-4.8) Monocytes # (Auto) 0.4 x10^3/uL (0.0-1.1) Eosinophils # (Auto) 0.0 x10^3/uL (0.0-0.7) Basophils # (Auto) 0.1 x10^3/uL (0.0-0.2) Platelet Estimate Adequate (ADEQUATE) Polychromasia Present Hypochromasia Present Anisocytosis Slight Microcytosis Marked Target Cells Few Tear Drop Cells Few Ovalocytes Few Schistocytes Occ Sodium Level 139 mmol/L (136-145) Potassium Level 4.2 mmol/L (3.5-5.1) Chloride Level 102 mmol/L (98-107) Carbon Dioxide Level 27 mmol/L (21-32) Anion Gap 10 (6-14) Blood Urea Nitrogen 13 mg/dL (7-20) Creatinine 0.9 mg/dL (0.6-1.0) Estimated GFR (Cockcroft-Gault) 76.3 BUN/Creatinine Ratio 14 (6-20) Glucose Level 92 mg/dL (70-99) Calcium Level 8.9 mg/dL (8.5-10.1) Magnesium Level 2.2 mg/dL (1.8-2.4) Total Bilirubin 0.6 mg/dL (0.2-1.0) Aspartate Amino Transf (AST/SGOT) 17 U/L (15-37) Alanine Aminotransferase (ALT/SGPT) 12 U/L (14-59) Alkaline Phosphatase 70 U/L (46-116) Troponin I Quantitative < 0.017 ng/mL (0.000-0.055) QY-Slt-M-Type Natriuretic Peptide 319 pg/mL (0-124) Total Protein 7.6 g/dL (6.4-8.2) Albumin 3.2 g/dL (3.4-5.0) Albumin/Globulin Ratio 0.7 (1.0-1.7) Triglycerides Level 54 mg/dL (0-150) Cholesterol Level 170 mg/dL (0-200) LDL Cholesterol, Calculated 85 mg/dL (0-100) VLDL Cholesterol, Calculated 11 mg/dL (0-40) Non-HDL Cholesterol Calculated 96 mg/dL (0-129) HDL Cholesterol 74 mg/dL (40-60) Cholesterol/HDL Ratio 2.3 Valproic Acid (Depakene) Level 15 mcg/mL (50-100) Valproic Acid Last Dose Date 09/08/18 Valproic Acid Last Dose Time 1800 VTE Prophylaxis Ordered VTE Prophylaxis Devices: No VTE Pharmacological Prophylaxi: Yes Assessment/Plan Assessment/Plan Encephalopathy secondary to multiple etiologies including underlying seizure disorder and hypertensive urgency Hypertensive urgency History of present gets disease with chronic pain syndrome History of CVA Dyslipidemia Obesity with a BMI of 38 Microcytic anemia Plan BP control with labetalol Resume home medications once available for review Seizure precautions Encourage activity as tolerated Pain management Reassess in the a.m. Further recommendations based on the clinical course AGUILA AU MD Sep 12, 2018 12:45
[2018-09-12] MEDS ORDERED: ASPI-630 PO (12:54)
[2018-09-12] MEDS ORDERED: PANT20TA2 PO (12:54)
[2018-09-12] MEDS ORDERED: METO-239 PO (12:54)
[2018-09-12] MEDS ORDERED: FURO40TA4 PO (12:54)
[2018-09-12] MEDS ORDERED: LOSA100T14 PO (12:54)
[2018-09-12] MEDS ORDERED: HYDR12.58 PO (12:54)
[2018-09-12] MEDS ORDERED: DIVA-53 PO (12:54)
[2018-09-12] MEDS ORDERED: LABETALOL 20 MG/4 ML DISP.SYRIN. IVP PRN (13:00)
[2018-09-12] MEDS: POLYETHYLENE GLYCOL 3350 17 GM PACKET. PO SCH (14:00)
[2018-09-12] MEDS: PANTOPRAZOLE 40 MG TABLET.DR. PO SCH (14:19)
[2018-09-12] MEDS: METOPROLOL SUCC 24HR ER 50 MG TAB.ER.24H. PO SCH (14:19)
[2018-09-12] MEDS: FUROSEMIDE 40 MG TABLET. PO SCH (14:19)
[2018-09-12] MEDS: hydroCHLOROthiazide 25 MG TABLET PO SCH (14:19)
[2018-09-12] MEDS: HYOSCYAMINE 0.125 MG TAB.RAPDIS PO SCH ×3 (14:19→22:04)
[2018-09-12] MEDS: predniSONE 10 MG TABLET PO SCH (14:20)
[2018-09-12] MEDS: LOSARTAN POTASSIUM 50 MG TABLET. PO SCH (14:20)
[2018-09-12 15:00] VITALS: BP 154/84
--- NOTE | 2018-09-12 15:34 | CARD ---
MR#: [id number] Date of Study: 09/12/2018 Ordering Physician: SUBHA LESTER, Referring Physician: AGUILA AU Tech: Chrissy Nath JUAN [place]IE[place] APPROVED REPORT EXAM: Two-dimensional and M-mode echocardiogram with Doppler and color Doppler. Other Information Quality : AverageHR: 65bpm Rhythm : NSR INDICATION Chest Pain 2D DIMENSIONS RVDd2.6 (2.9-3.5cm)Left Atrium(2D)3.5 (1.6-4.0cm) IVSd1.3 (0.7-1.1cm)Aortic Root(2D)2.9 (2.0-3.7cm) LVDd3.7 (3.9-5.9cm)LVOT Diameter2.1 (1.8-2.4cm) PWd1.3 (0.7-1.1cm)LVDs2.3 (2.5-4.0cm) FS (%) 38.2 %SV39.0 ml M-Mode DIMENSIONS Left Atrium(MM)3.49 (2.5-4.0cm)Aortic Root3.25 (2.2-3.7cm) Aortic Valve AoV Peak Anshul.134.4cm/sAoV VTI30.4cm AO Peak GR.7.2mmHgLVOT Peak Anshul.94.0cm/s AO Mean GR.4mmHgAVA (VMAX)2.46cm2 GILBERT (VTI)2.50cm2 Mitral Valve MV E Kvvplmwi84.9cm/sMV DECEL [id number] MV A Twcupaab67.4cm/sE/A Ratio0.9 MV A Ajcdpdau10hn Pulmonary Valve PV Peak Xuaksyun48.2cm/s Tricuspid Valve TR P. Illulmvn878vb/sRAP HWAEXHDU8hfCa TR Peak Gr.53vvFdCCTF18mdLh LEFT VENTRICLE The left ventricle is normal size. There is mild concentric left ventricular hypertrophy. The left ve ntricular systolic function is normal and the ejection fraction is within normal range. The Ejection Fraction is 60-65%. There is normal LV segmental wall motion. Transmitral Doppler flow pattern is Gra de II-pseudonormal filling dynamics. RIGHT VENTRICLE The right ventricle is normal size. There is normal right ventricular wall thickness. The right ventr icular systolic function is normal. ATRIA The left atrium size is normal. The right atrium size is normal. The interatrial septum is intact wit h no evidence for an atrial septal defect or patent foramen ovale as noted on 2-D or Doppler imaging. AORTIC VALVE The aortic valve is normal in structure and function. The aortic valve is trileaflet. Doppler and Col or Flow revealed no significant aortic regurgitation. There is no significant aortic valvular stenosi s. MITRAL VALVE The mitral valve is normal in structure and function. There is no evidence of mitral valve prolapse. There is no mitral valve stenosis. Doppler and Color-flow revealed trace mitral regurgitation. TRICUSPID VALVE The tricuspid valve is normal in structure and function. Doppler and Color Flow revealed trace tricus pid regurgitation. The PA pressure was estimated at 30 mmHg. There is no tricuspid valve prolapse or vegetation. There is no tricuspid valve stenosis. PULMONIC VALVE The pulmonary valve is normal in structure and function. Doppler and Color Flow revealed trace to mil d pulmonic valvular regurgitation. There is no pulmonic valvular stenosis. GREAT VESSELS The aortic root is normal in size. The ascending aorta is normal in size. The IVC is dilated and arielle apses >50% with inspiration. PERICARDIAL EFFUSION There is no evidence of significant pericardial effusion. Critical Notification Critical Value: No <Conclusion> The left ventricle is normal size. The left ventricular systolic function is normal and the ejection fraction is within normal range. The Ejection Fraction is 60-65%. There is mild concentric left ventricular hypertrophy. There is no significant aortic valvular stenosis. Doppler and Color Flow revealed no significant aortic regurgitation. Doppler and Color-flow revealed trace mitral regurgitation. Doppler and Color Flow revealed trace tricuspid regurgitation. The PA pressure was estimated at 30 mmHg. Signed by : Santosh Siddiqi MD Electronically Approved : 09/12/2018 15:34:34
[2018-09-12 19:23] VITALS: BP 207/56
[2018-09-12] MEDS: DIVALPROEX DELAYED RELEASE 500 MG TABLET.DR. PO SCH (22:04)
[2018-09-12 22:46] VITALS: BP 150/68
[2018-09-13 03:13] VITALS: BP 152/67
[2018-09-13 05:16] LABS: BASO % 0 % (0-3); EOS % 0 % (0-3); HEMOGLOBIN 8.9 g/dL (12.0-15.5); LYMPH # 1.4 x10^3/uL (1.0-4.8); LYMPH % 16 % (24-48); MEAN CORPUSCULAR HEMOGLOBIN 20 pg (25-35); MEAN CORPUSCULAR HGB CONC 31 g/dL (31-37); MEAN CORPUSCULAR VOLUME 65 fL (79-100); MONO # 0.2 x10^3/uL (0.0-1.1); MONO % 2 % (0-9); NEUT # 7.2 x10^3uL (1.8-7.7); NEUT % 82 % (31-73); PLATELET COUNT 234 x10^3/uL (140-400); RED BLOOD COUNT 4.49 x10^6/uL (3.50-5.40); RED CELL DISTRIBUTION WIDTH 16.6 % (11.5-14.5); WHITE BLOOD COUNT 8.8 x10^3/uL (4.0-11.0)
[2018-09-13 05:59] LABS: CALCIUM 8.8 mg/dL (8.5-10.1); CREATININE 1.2 mg/dL (0.6-1.0); GFR 54.7; POTASSIUM 4.2 mmol/L (3.5-5.1)
[2018-09-13 07:15] VITALS: BP 174/97
[2018-09-13] MEDS: FUROSEMIDE 40 MG TABLET. PO SCH ×2 (08:59→09:00)
[2018-09-13] MEDS: PANTOPRAZOLE 40 MG TABLET.DR. PO SCH (08:59)
[2018-09-13] MEDS: predniSONE 10 MG TABLET PO SCH (08:59)
[2018-09-13] MEDS: HYOSCYAMINE 0.125 MG TAB.RAPDIS PO SCH (08:59)
[2018-09-13] MEDS: POLYETHYLENE GLYCOL 3350 17 GM PACKET. PO SCH ×2 (09:00→09:01)
[2018-09-13] MEDS: METOPROLOL SUCC 24HR ER 50 MG TAB.ER.24H. PO SCH (09:00)
[2018-09-13] MEDS ORDERED: ASPIRIN CHEWABLE 81 MG TABLET. PO SCH (09:00)
[2018-09-13] MEDS: DIVALPROEX DELAYED RELEASE 500 MG TABLET.DR. PO SCH (09:00)
[2018-09-13] MEDS: hydroCHLOROthiazide 25 MG TABLET PO SCH (09:00)
[2018-09-13] MEDS: LOSARTAN POTASSIUM 50 MG TABLET. PO SCH (09:01)
[2018-09-13] MEDS ORDERED: DIVA-53 PO (09:56)
[2018-09-13] MEDS ORDERED: METO-239 PO (09:56)
[2018-09-13] MEDS ORDERED: ASPI-630 PO (09:56)
[2018-09-13] MEDS ORDERED: PANT20TA2 PO (09:56)
[2018-09-13] MEDS ORDERED: POLY119P4 PO (09:56)
[2018-09-13] MEDS ORDERED: HYDR12.58 PO (09:56)
[2018-09-13] MEDS ORDERED: HYOS0.1264 PO (09:56)
[2018-09-13] MEDS ORDERED: LOSA100T14 PO (09:56)
--- NOTE | 2018-09-13 09:57 | DISCH ---
DISCHARGE WITH HOME HEALTH DISCHARGE INFORMATION: Discharge Date: Sep 13, 2018 Final Diagnosis: Problems Medical Problems: (1) Chest pain Status: Acute (2) Hypertensive urgency Status: Acute (3) Seizure disorder Status: Acute Condition on Discharge: Stable HOME HEALTH: Face to Face: I certify this patient is under my care and that I, or a nurse practitioner or physician's certified nursing assistant working with me, had a face to face encounter that meets the physician face to face encounter requirements with this patient on []. Medical Complications: HTN Fpc For: Assess/Skilled Observatio Physical Therapy For: Evalulation/Treatment Occupational Therapy For: Evaluation/Treatment Speech Language Pathology For: Evaluation/Treatment CERTIFICATION STATEMENT: Certification Statement: Certification Statement: Based on the above finding, I certify that this patient is confined to the home and needs intermittent chcf care, physical therapy and/or speech therapy, or continues to need occupational therapy.~ This patient is under my care, and I have initiated the establishment of the plan of care.~ This patient will be followed by myself or a community physician who will periodically review the plan of care. Home Meds Active Scripts Aspirin (ASPIRIN) 81 Mg Tab.chew, 1 TAB PO DAILY for Prevent for 30 Days, #30 TAB 3 Refills Prov:AGUILA AU MD 09/13/18 Pantoprazole Sodium (PROTONIX) 20 Mg Tablet.dr, 40 MG PO DAILY for P.U.D. for 30 Days, #60 TAB Prov:AGUILA AU MD 09/13/18 Hydrochlorothiazide (HYDROCHLOROTHIAZIDE TABLET) 12.5 Mg Tablet, 25 MG PO DAILY for HTN for 30 Days, #60 TAB 0 Refills Prov:AGUILA AU MD 09/13/18 Metoprolol Succinate (METOPROLOL SUCCINATE ( XL )) 25 Mg Tab.er.24h, 50 MG PO DAILY for HTN for 30 Days, #60 TAB 0 Refills Prov:AGUILA AU MD 09/13/18 Divalproex Sodium (DIVALPROEX SODIUM) 500 Mg Tablet.dr, 1 TAB PO BID for seizures for 30 Days, #60 TAB 1 Refill Prov:AGUILA AU MD 09/13/18 Losartan Potassium (LOSARTAN POTASSIUM) 100 Mg Tablet, 100 MG PO DAILY for HYPERTENSION for 30 Days, #30 TAB Prov:AGUILA AU MD 09/13/18 Polyethylene Glycol 3350 (MIRALAX) 119 Gm Powder, 1 TBS PO DAILY for cosntipation for 30 Days, #255 GM Prov:AGUILA AU MD 09/13/18 Hyoscyamine Sulfate (LEVSIN) 0.125 Mg Tablet, 0.125 MG PO QID for antispasmodic for 30 Days, #120 TAB Prov:AGUILA AU MD 09/13/18 Hydrocodone/Apap 5-325 (NORCO 5-325 TABLET) 1 Each Tablet, 1 TAB PO PRN Q6HRS PRN for PAIN, #15 TAB 0 Refills Prov:LEON REINA DO 07/20/18 Discontinued Reported Medications Furosemide (FUROSEMIDE) 40 Mg Tablet, 1 TAB PO DAILY for CHF, #30 TAB 5 Refills 09/12/18 Discontinued Scripts Prednisone (PREDNISONE ) 10 Mg Tablet, 30 MG PO DAILY for 7 Days, #21 TAB 0 Refills Prov:LEON REINA DO 07/20/18 Acetaminophen With Codeine (TYLENOL WITH CODEINE #3 TABLET) 1 Each Tablet, 1 TAB PO PRN Q4HRS PRN for PAIN, #20 TAB Prov:DANIEL CHAND DO 06/03/18 AGUILA AU MD Sep 13, 2018 09:57
[2018-09-13 11:00] VITALS: BP 162/90
--- NOTE | 2018-09-13 11:12 | NUR ---
SS following up with discharge planning. Discharge order on the chart. Pt is self pay pt. SS met with pt and provided pt with resources for assistance with medications and medical services to include [facility], [facility], [facility], $4 medication list from [employer], and a prescription savings card. Pt accepted all resources.
--- NOTE | 2018-09-13 11:29 | PDOC3 ---
Discharge Summary Visit Information Date of Admission: Sep 12, 2018 Date of Discharge: Sep 13, 2018 Admitting Diagnosis: Hypertnesive urgency Final Diagnosis Problems Medical Problems: (1) Chest pain Status: Acute (2) Hypertensive urgency Status: Acute (3) Seizure disorder Status: Acute Brief Hospital Course Allergies Allergies Coded Allergies Type Severity Reaction Last Updated Verified [place] And Derivatives Allergy Intermediate 06/03/18 Yes Penicillins Allergy Intermediate 06/03/18 Yes Vital Signs Vital Signs Date Time Temp Pulse Resp B/P (MAP) Pulse Ox O2 Delivery O2 Flow Rate FiO2 09/13/18 11:00 98.2 82 20 162/90 (114) 99 Room Air 98.2 Lab Results Laboratory Tests Test 09/12/18 06:10 09/12/18 07:17 09/12/18 13:30 09/12/18 18:00 Urine Collection Type Unknown Urine Color Yellow Urine Clarity Clear Urine pH 6.5 Urine Specific [place] 1.010 Urine Protein Negative mg/dL (NEG-TRACE) Urine Glucose (UA) Negative mg/dL (NEG) Urine Ketones (Stick) Negative mg/dL (NEG) Urine Blood Negative (NEG) Urine Nitrite Negative (NEG) Urine Bilirubin Negative (NEG) Urine Urobilinogen Dipstick 0.2 mg/dL (0.2 mg/dL) Urine Leukocyte Esterase Negative (NEG) Urine RBC Occ /HPF (0-2) Urine WBC Occ /HPF (0-4) Urine Squamous Epithelial Cells Few /LPF Urine Bacteria Few /HPF (0-FEW) White Blood Count 9.1 x10^3/uL (4.0-11.0) Red Blood Count 4.58 x10^6/uL (3.50-5.40) Hemoglobin 9.1 g/dL (12.0-15.5) Hematocrit 29.1 % (36.0-47.0) Mean Corpuscular Volume 64 fL (79-100) Mean Corpuscular Hemoglobin 20 pg (25-35) Mean Corpuscular Hemoglobin Concent 31 g/dL (31-37) Red Cell Distribution Width 16.2 % (11.5-14.5) Platelet Count 233 x10^3/uL (140-400) Neutrophils (%) (Auto) 65 % (31-73) Lymphocytes (%) (Auto) 29 % (24-48) Monocytes (%) (Auto) 4 % (0-9) Eosinophils (%) (Auto) 0 % (0-3) Basophils (%) (Auto) 1 % (0-3) Neutrophils # (Auto) 5.9 x10^3uL (1.8-7.7) Lymphocytes # (Auto) 2.7 x10^3/uL (1.0-4.8) Monocytes # (Auto) 0.4 x10^3/uL (0.0-1.1) Eosinophils # (Auto) 0.0 x10^3/uL (0.0-0.7) Basophils # (Auto) 0.1 x10^3/uL (0.0-0.2) Platelet Estimate Adequate (ADEQUATE) Polychromasia Present Hypochromasia Present Anisocytosis Slight Microcytosis Marked Target Cells Few Tear Drop Cells Few Ovalocytes Few Schistocytes Occ Sodium Level 139 mmol/L (136-145) Potassium Level 4.2 mmol/L (3.5-5.1) Chloride Level 102 mmol/L (98-107) Carbon Dioxide Level 27 mmol/L (21-32) Anion Gap 10 (6-14) Blood Urea Nitrogen 13 mg/dL (7-20) Creatinine 0.9 mg/dL (0.6-1.0) Estimated GFR (Cockcroft-Gault) 76.3 BUN/Creatinine Ratio 14 (6-20) Glucose Level 92 mg/dL (70-99) Calcium Level 8.9 mg/dL (8.5-10.1) Magnesium Level 2.2 mg/dL (1.8-2.4) Total Bilirubin 0.6 mg/dL (0.2-1.0) Aspartate Amino Transf (AST/SGOT) 17 U/L (15-37) Alanine Aminotransferase (ALT/SGPT) 12 U/L (14-59) Alkaline Phosphatase 70 U/L (46-116) Troponin I Quantitative < 0.017 ng/mL (0.000-0.055) < 0.017 ng/mL (0.000-0.055) < 0.017 ng/mL (0.000-0.055) AO-Kxt-S-Type Natriuretic Peptide 319 pg/mL (0-124) Total Protein 7.6 g/dL (6.4-8.2) Albumin 3.2 g/dL (3.4-5.0) Albumin/Globulin Ratio 0.7 (1.0-1.7) Triglycerides Level 54 mg/dL (0-150) Cholesterol Level 170 mg/dL (0-200) LDL Cholesterol, Calculated 85 mg/dL (0-100) VLDL Cholesterol, Calculated 11 mg/dL (0-40) Non-HDL Cholesterol Calculated 96 mg/dL (0-129) HDL Cholesterol 74 mg/dL (40-60) Cholesterol/HDL Ratio 2.3 Valproic Acid (Depakene) Level 15 mcg/mL (50-100) Valproic Acid Last Dose Date 09/08/18 Valproic Acid Last Dose Time 1800 Test 09/13/18 04:00 White Blood Count 8.8 x10^3/uL (4.0-11.0) Red Blood Count 4.49 x10^6/uL (3.50-5.40) Hemoglobin 8.9 g/dL (12.0-15.5) Hematocrit 29.0 % (36.0-47.0) Mean Corpuscular Volume 65 fL (79-100) Mean Corpuscular Hemoglobin 20 pg (25-35) Mean Corpuscular Hemoglobin Concent 31 g/dL (31-37) Red Cell Distribution Width 16.6 % (11.5-14.5) Platelet Count 234 x10^3/uL (140-400) Neutrophils (%) (Auto) 82 % (31-73) Lymphocytes (%) (Auto) 16 % (24-48) Monocytes (%) (Auto) 2 % (0-9) Eosinophils (%) (Auto) 0 % (0-3) Basophils (%) (Auto) 0 % (0-3) Neutrophils # (Auto) 7.2 x10^3uL (1.8-7.7) Lymphocytes # (Auto) 1.4 x10^3/uL (1.0-4.8) Monocytes # (Auto) 0.2 x10^3/uL (0.0-1.1) Eosinophils # (Auto) 0.0 x10^3/uL (0.0-0.7) Basophils # (Auto) 0.0 x10^3/uL (0.0-0.2) Sodium Level 136 mmol/L (136-145) Potassium Level 4.2 mmol/L (3.5-5.1) Chloride Level 100 mmol/L (98-107) Carbon Dioxide Level 27 mmol/L (21-32) Anion Gap 9 (6-14) Blood Urea Nitrogen 21 mg/dL (7-20) Creatinine 1.2 mg/dL (0.6-1.0) Estimated GFR (Cockcroft-Gault) 54.7 Glucose Level 153 mg/dL (70-99) Calcium Level 8.8 mg/dL (8.5-10.1) Laboratory Tests Test 09/12/18 13:30 09/12/18 18:00 09/13/18 04:00 Troponin I Quantitative < 0.017 ng/mL (0.000-0.055) < 0.017 ng/mL (0.000-0.055) White Blood Count 8.8 x10^3/uL (4.0-11.0) Red Blood Count 4.49 x10^6/uL (3.50-5.40) Hemoglobin 8.9 g/dL (12.0-15.5) Hematocrit 29.0 % (36.0-47.0) Mean Corpuscular Volume 65 fL (79-100) Mean Corpuscular Hemoglobin 20 pg (25-35) Mean Corpuscular Hemoglobin Concent 31 g/dL (31-37) Red Cell Distribution Width 16.6 % (11.5-14.5) Platelet Count 234 x10^3/uL (140-400) Neutrophils (%) (Auto) 82 % (31-73) Lymphocytes (%) (Auto) 16 % (24-48) Monocytes (%) (Auto) 2 % (0-9) Eosinophils (%) (Auto) 0 % (0-3) Basophils (%) (Auto) 0 % (0-3) Neutrophils # (Auto) 7.2 x10^3uL (1.8-7.7) Lymphocytes # (Auto) 1.4 x10^3/uL (1.0-4.8) Monocytes # (Auto) 0.2 x10^3/uL (0.0-1.1) Eosinophils # (Auto) 0.0 x10^3/uL (0.0-0.7) Basophils # (Auto) 0.0 x10^3/uL (0.0-0.2) Sodium Level 136 mmol/L (136-145) Potassium Level 4.2 mmol/L (3.5-5.1) Chloride Level 100 mmol/L (98-107) Carbon Dioxide Level 27 mmol/L (21-32) Anion Gap 9 (6-14) Blood Urea Nitrogen 21 mg/dL (7-20) Creatinine 1.2 mg/dL (0.6-1.0) Estimated GFR (Cockcroft-Gault) 54.7 Glucose Level 153 mg/dL (70-99) Calcium Level 8.8 mg/dL (8.5-10.1) Brief Hospital Course Ms. Gonzalez is a 63 old female with multiple comorbidities that include seizure disorder and stroke in the apst with the subsequent expressive aphasia who presented with confusion and chest pressure secondary to hypertensive urgency. The patient was admitted for observation overnight 3 sets of cardiac enzymes were checked and were negative. There were no evidence of wall motion abnormalities on her echocardiogram and her ejection fraction is preserved at the present time. Patient's blood pressure was controlled once her home medications which she had not taken for 2 weeks were restarted. Resources were given through case management regarding programs that assist with medications patient's daughter is in the process off moving her to [place] where she can have some sort of insurance and she relates to me since she is pretty much dependent on others for her medications and her care. Daughter has someone that helps her throughout the day and was she finishes her work at 2 in the afternoon she comes home and helps her with the activities of daily living and finishes with her medications and caring for her mother. Patient is in good spirits to be dismissed home her blood pressure has come down to acceptable levels and I have encourage her to follow up with her primary care physician no new neurological deficits were evident throughout her hospital stay all concerns were addressed to the best of my abiltis. Respiratory exam lungs clear to auscultation bilaterally with good inspiratory effort Cardiovascular S1-S2 regular rhythm faint systolic murmur no radiation to the carotids no gallops no rubs Discharge Information Condition at Discharge: Improved Follow Up: Weeks (1 week with primary care physician) Disposition/Orders: D/C to Home Scheduled Aspirin (Aspirin) 81 Mg Tab.chew, 1 TAB PO DAILY for Prevent for 30 Days, #30 Ref 3 Prescribed by: AGUILA AU MD on 09/13/18 0956 Divalproex Sodium (Divalproex Sodium) 500 Mg Tablet.dr, 1 TAB PO BID for seizures for 30 Days, #60 Ref 1 Prescribed by: AGUILA AU MD on 09/13/18 0956 Hydrochlorothiazide (Hydrochlorothiazide Tablet) 12.5 Mg Tablet, 25 MG PO DAILY for HTN for 30 Days, #60 Ref 0 Prescribed by: AGUILA AU MD on 09/13/18 0956 Hyoscyamine Sulfate (Levsin) 0.125 Mg Tablet, 0.125 MG PO QID for antispasmodic for 30 Days, #120 Prescribed by: AGUILA AU MD on 09/13/18 0956 Losartan Potassium (Losartan Potassium) 100 Mg Tablet, 100 MG PO DAILY for HYPERTENSION for 30 Days, #30 Prescribed by: AGUILA AU MD on 09/13/18 0956 Metoprolol Succinate (Metoprolol Succinate ( Xl )) 25 Mg Tab.er.24h, 50 MG PO DAILY for HTN for 30 Days, #60 Ref 0 Prescribed by: AGUILA AU MD on 09/13/18 0956 Pantoprazole Sodium (Protonix) 20 Mg Tablet.dr, 40 MG PO DAILY for P.U.D. for 30 Days, #60 Prescribed by: AGUILA AU MD on 09/13/18 0956 Polyethylene Glycol 3350 (Miralax) 119 Gm Powder, 1 TBS PO DAILY for cosntipation for 30 Days, #255 Prescribed by: AGUILA AU MD on 09/13/18 0956 Scheduled PRN Hydrocodone/Apap 5-325 ([place] 5-325 Tablet) 1 Each Tablet, 1 TAB PO PRN Q6HRS PRN for PAIN, #15 Ref 0 Prescribed by: LEON REINA D.O. on 07/20/18 0818 Last Action: Continued on 09/12/18 1247 by AGUILA AU MD Discontinued Medications Acetaminophen With Codeine (Tylenol With Codeine #3 Tablet) 1 Each Tablet, 1 TAB PO PRN Q4HRS PRN for PAIN, #20 Prescribed by: DANIEL CHAND DO on 06/03/18 0433 Last Action: Continued on 09/12/18 1247 by AGUILA AU MD Furosemide (Furosemide) 40 Mg Tablet, 1 TAB PO DAILY for CHF, #30 Ref 5 ( Reported) Entered as Reported by: MAKAYLA PRICE on 09/12/18 1254 Last Action: Continued on 09/12/18 1326 by AGUILA AU MD Prednisone (Prednisone ) 10 Mg Tablet, 30 MG PO DAILY for 7 Days, #21 Ref 0 Prescribed by: LEON REINA D.O. on 07/20/18 0818 Last Action: Continued on 09/12/18 1247 by MD ROE RENTERIA HECTOR M MD Sep 13, 2018 11:29
--- NOTE | 2018-09-13 14:00 | PDOC ---
CARDIO Progress Notes Date and Time Date of Service 09/13/2018 Time of Evaluation 1330 Subjective Subjective: No Chest Pain, No shortness of breath, No Palpitations Vitals Vitals Vital Signs Date Time Temp Pulse Resp B/P (MAP) Pulse Ox O2 Delivery O2 Flow Rate FiO2 09/13/18 11:00 98.2 82 20 162/90 (114) 99 Room Air 98.2 Weight Weight [ ] Input and Output Intake and Output Intake and Output 09/13/18 07:00 Intake Total 1290 ml Output Total 400 ml Balance 890 ml Intake Oral 1290 ml Output Urine Total 400 ml # Voids 2 Laboratory Labs Laboratory Tests Test 09/12/18 18:00 09/13/18 04:00 Troponin I Quantitative < 0.017 ng/mL (0.000-0.055) White Blood Count 8.8 x10^3/uL (4.0-11.0) Red Blood Count 4.49 x10^6/uL (3.50-5.40) Hemoglobin 8.9 g/dL (12.0-15.5) Hematocrit 29.0 % (36.0-47.0) Mean Corpuscular Volume 65 fL (79-100) Mean Corpuscular Hemoglobin 20 pg (25-35) Mean Corpuscular Hemoglobin Concent 31 g/dL (31-37) Red Cell Distribution Width 16.6 % (11.5-14.5) Platelet Count 234 x10^3/uL (140-400) Neutrophils (%) (Auto) 82 % (31-73) Lymphocytes (%) (Auto) 16 % (24-48) Monocytes (%) (Auto) 2 % (0-9) Eosinophils (%) (Auto) 0 % (0-3) Basophils (%) (Auto) 0 % (0-3) Neutrophils # (Auto) 7.2 x10^3uL (1.8-7.7) Lymphocytes # (Auto) 1.4 x10^3/uL (1.0-4.8) Monocytes # (Auto) 0.2 x10^3/uL (0.0-1.1) Eosinophils # (Auto) 0.0 x10^3/uL (0.0-0.7) Basophils # (Auto) 0.0 x10^3/uL (0.0-0.2) Sodium Level 136 mmol/L (136-145) Potassium Level 4.2 mmol/L (3.5-5.1) Chloride Level 100 mmol/L (98-107) Carbon Dioxide Level 27 mmol/L (21-32) Anion Gap 9 (6-14) Blood Urea Nitrogen 21 mg/dL (7-20) Creatinine 1.2 mg/dL (0.6-1.0) Estimated GFR (Cockcroft-Gault) 54.7 Glucose Level 153 mg/dL (70-99) Calcium Level 8.8 mg/dL (8.5-10.1) Physical Exam HEENT: Neck Supple W Full Motion Chest: Symmetric LUNGS: Clear to Auscultation Heart: S1S2, RRR (SR/SB) Abdomen: Soft N/T Extremities: No Calf Tenderness Neurology: alert, oriented, follow commands Assessment Assessment 1. Atypical CP: possibly MSK 2. Hx of NICM and severe MR: TTE noted with significant recovery with EF at 60% 2. Malignant HTN; BP is still labile 3. Encephalopathy, hypertensive with underlying dementia: better 4. Chronic diastolic/systolic CHF; compensated 5. Paget's disease with chronic pain 6. Seizure disorder 7. Noncompliant with meds due to financial constraints. 8. Asymptomatic SB: no pauses or blocks. lowest mid 40s. Recommendations 1. Continue losartan, Decrease toprol to 25 mg daily Rx given. Start on amlodipine 2. Encouraged pt to follow up with Dr. Siddiqi in 4 weeks. Follow up with PCP in 1-2 weeks for BP check Records review from [facility] 1. Hcx of CVA and dementia. TTE noted on 01/2018 with EF at 15-20% with dilated cardiomyopathy. moderate PVR, 50 mmHg PAP, moderate to severe MR ELDON STEVE TECHNICAL MAINTENANCE SPECIALIST Sep 13, 2018 14:00
--- NOTE | 2018-09-13 17:03 | NUR ---
Pt alert and oriented throughout shift. Pt denied pain throughout shift. Pt did not demonstrate any seizure activity. Family educated on resources by social media community manager. Pt tolerated IV removal. Catheter tip intact. Pressure applied, bleeding stopped, bandage applied. Daughter educated on medications, hypertension and the impact of high stress on htn and seizures. Daughter and patient denied questions at discharge. Pt and all belongings taken out to family car by COFFEE WEIGHER.
== END 2018-09-13 15:00 | disposition home health service (06) | DRG 304 ==
LOC: ER 05:35 → 2 NORTH 09:43
PROVIDERS: ADMIT Internal Medicine; ATTEND Internal Medicine
DX: I16.0 Hypertensive urgency (principal); G03.9 Meningitis, unspecified; I42.9 Cardiomyopathy, unspecified; I50.42 Chronic combined systolic (congestive) and diastolic (congestive) heart failure; I67.4 Hypertensive encephalopathy; I11.0 Hypertensive heart disease with heart failure; D50.9 Iron deficiency anemia, unspecified; E11.9 Type 2 diabetes mellitus without complications; E66.9 Obesity, unspecified; Z68.39 Body mass index [BMI] 39.0-39.9, adult; E78.5 Hyperlipidemia, unspecified; R07.89 Other chest pain; F03.90 Unspecified dementia, unspecified severity, without behavioral disturbance, psychotic disturbance, mood disturbance, and anxiety; G40.909 Epilepsy, unspecified, not intractable, without status epilepticus; G89.4 Chronic pain syndrome; M88.9 Osteitis deformans of unspecified bone; Z82.0 Family history of epilepsy and other diseases of the nervous system; Z82.49 Family history of ischemic heart disease and other diseases of the circulatory system; Z86.61 Personal history of infections of the central nervous system; Z86.73 Personal history of transient ischemic attack (TIA), and cerebral infarction without residual deficits; Z87.11 Personal history of peptic ulcer disease; Z91.14 Patient's other noncompliance with medication regimen; Z90.49 Acquired absence of other specified parts of digestive tract; Z88.0 Allergy status to penicillin; Z88.8 Allergy status to other drugs, medicaments and biological substances
CPT/HCPCS: 36415; 71045; 80048; 80053; 80061; 80164; 81001; 83735; 83880; 84484; 85025; 93005; 93306; 96365; J7512; 99285-25

== ENCOUNTER 2019-02-17 18:27 | Emergency (ER) | payer SELFPAY ==
[~2019-02-17] VITALS: Ht 160 cm; Wt 102.1 kg
[~2019-02-17 18:27] MED LIST changes: +ASPI-630 PO; +DIVA-53 PO; +FURO40TA4 PO; +HYDR12.58 PO; +LOSA100T14 PO; +METO-239 PO; +PANT20TA2 PO
[2019-02-17 20:53] VITALS: BP 189/89
[2019-02-17] MEDS ORDERED: PROPRANOLOL 40 MG TABLET. PO ONE (21:00)
[2019-02-17] MEDS ORDERED: HYDROcodone/APAP 7.5/325MG 1 TAB TABLET PO ONE (21:00)
[2019-02-17] MEDS ORDERED: LOSARTAN POTASSIUM 50 MG TABLET. PO ONE (21:00)
[2019-02-17] MEDS ORDERED: HYDR-2765 PO (21:38)
--- NOTE | 2019-02-17 21:39 | PHYS DOC ---
Past Medical History Past Medical History: CHF, Dementia, Diabetes-Type II, Hypertension, P.U.D., Seizure, Other Additional Past Medical Histor: paci menegitis of the brain, pagent's disease, sickle beta thalacemia (KATJA SAUNDERS APRN) Past Surgical History: Cholecystectomy, , Other Additional Past Surgical Histo: fluid removal brain (KATJA SAUNDERS APRN) Alcohol Use: None Drug Use: None (KATJA SAUNDERS APRN) Adult General Chief Complaint Chief Complaint: LOWEREXTREMITY INJURY HPI HPI Patient is a 63 year old AA female who presents to the ER accompanied by her daughter with reports of chronic leg and back pain from a flare up of her Padget's disease. Pt states she usually takes hydrocodone 7.5/325 mg tablets during a flare up. She is unable to see her PCP because she does not have active insurance at this time. She rates her pain a 10/10. Pt noted to be hypertensive, she states she has been out of her BP medications and has not taken them for a few days. Pt has refills of all of her medications with the exception of her Hydrocodone waiting for her to shrimp picker at [place]. ROS Pt denies any injury, numbness, tingling, saddle anesthesia, or loss of bowel/bladder control. She denies any headache, nausea, vomiting, vision changes, weakness, incoordination, abdominal pain, dysuria, hematuria, or increased urinary frequency. All other ROS WNL unless otherwise documented in HPI. (KATJA SAUNDERS APRN) Review of Systems Review of Systems See Above (KATJA SAUNDERS APRN) Allergies Allergies Allergies Coded Allergies Type Severity Reaction Last Updated Verified [place] And Derivatives Allergy Intermediate 06/03/18 Yes Penicillins Allergy Intermediate 06/03/18 Yes (LISA BYNUM DO) Physical Exam Physical Exam Constitutional: Well developed, well nourished, no acute distress, non-toxic appearance, obese. [] HENT: Normocephalic, atraumatic, bilateral external ears normal, nose normal. [] Eyes: conjunctiva normal, no discharge. [] Neck: Normal range of motion, no stridor. [] Cardiovascular:Heart rate regular rhythm Lungs & Thorax: Respirations even and unlabored, no retractions, speaking full sentences Skin: Warm, dry, no erythema, no rash. [] Back: No tenderness Extremities: No tenderness, no cyanosis, no clubbing, ROM intact, no edema. [] Neurologic: Alert and oriented X 3, no focal deficits noted. [] Psychologic: Affect normal, judgement normal, mood normal. [] (KATJA SAUNDERS APRN) Current Patient Data Vital Signs Vital Signs Date Time Temp Pulse Resp B/P (MAP) Pulse Ox O2 Delivery O2 Flow Rate FiO2 02/17/19 19:49 98.8 73 18 211/101 (137) 99 Room Air 98.8 (LISA BYNUM DO) EKG EKG [] (KATJA SAUNDERS APRN) Radiology/Procedures Radiology/Procedures [] (KATJA SAUNDERS APRN) Course & Med Decision Making Course & Med Decision Making Pertinent Labs and Imaging studies reviewed. (See chart for details) dx: medication refill, chronic pain exacerbation, hypertension Pt declines further evaluation of chronic pain, requests a refill of her pain medication only at this time. Pt was given hydrocodone 7.5/325 mg tablet, 100 mg of losartan, and 40 mg of propranolol as she is prescribed by her PCP. BP improving 189/89 prior to discharge. Prescription written for hydrocodone 7.5/325 mg tablets take 1 tablet PO q6 hours as needed for pain. Follow up with PCP for future refills of this medication. Pt verbalized an understanding of d/c instructions, prescriptions, follow up, and return to ER instructions and was in agreement with POC. [] (KATJA SAUNDERS APRN) Dragon Disclaimer Dragon Disclaimer This electronic medical record was generated, in whole or in part, using a voice recognition dictation system. (KATJA SAUNDERS APRN) Departure Departure Impression: Primary Impression: Medication refill Additional Impressions: Hypertension Chronic pain Disposition: 01 HOME, SELF-CARE Condition: STABLE Referrals: UNKNOWN PCP NAME (PCP) Patient Instructions: Medication Refill, Emergency Department Additional Instructions: We have given you a one time refill of your pain medication. Follow up with your primary care doctor as discussed. Take your blood pressure medication as prescribed. Scripts Hydrocodone Bit/Acetaminophen (HYDROCODONE-APAP 7.5-325 ) 1 Tab Tablet 1 TAB PO PRN Q6HRS PRN for PAIN for 3 Days, #10 TAB 0 Refills Prov: KATJA SAUNDERS APRN 02/17/19 Attending Signature Attending Signature I have reviewed the PA/AGILE JAVA DEVELOPER's note and plan of care. I was available for consultation as needed during the patient's visit in the emergency department. I agree with the clinical impression, plan, and disposition. (LISA BYNUM DO) Problem Qualifiers Additional Impressions: Hypertension Hypertension type: unspecified Qualified Codes: I10 - Essential (primary) hypertension Chronic pain Chronic pain type: other chronic pain Qualified Codes: G89.29 - Other chronic pain KATJA SAUNDERS APRN Feb 17, 2019 21:39 LISA BYNUM DO Feb 18, 2019 02:48
== END 2019-02-17 21:48 | disposition home or self-care (01) ==
LOC: ER 18:27 → 1 WEST ICU 20:12 → UNDOADMIN 20:12 → ER 21:48
DX: G89.29 Other chronic pain (principal); M79.604 Pain in right leg; M79.606 Pain in leg, unspecified; M54.9 Dorsalgia, unspecified; I11.0 Hypertensive heart disease with heart failure; I50.9 Heart failure, unspecified; E11.9 Type 2 diabetes mellitus without complications; F03.90 Unspecified dementia, unspecified severity, without behavioral disturbance, psychotic disturbance, mood disturbance, and anxiety; Z90.49 Acquired absence of other specified parts of digestive tract; Z88.0 Allergy status to penicillin; Z88.8 Allergy status to other drugs, medicaments and biological substances
CPT/HCPCS: 99284

== ENCOUNTER 2019-05-03 12:24 | Emergency (ER) | payer SELFPAY ==
[~2019-05-03] VITALS: Ht 157.5 cm; Wt 99.8 kg
[~2019-05-03 12:24] MED LIST changes: +HYDR-2765 PO
--- NOTE | 2019-05-03 12:51 | PHYS DOC ---
Past Medical History Past Medical History: CHF, Dementia, Diabetes-Type II, Hypertension, P.U.D., Seizure, Other Additional Past Medical Histor: paci menegitis of the brain, pagent's disease, sickle beta thalacemia Past Surgical History: Cholecystectomy, , Other Additional Past Surgical Histo: fluid removal brain Alcohol Use: None Drug Use: None Adult General Chief Complaint Chief Complaint: BACK PAIN OR INJURY HPI HPI 63-year-old female presents to the emergency department with complaints of back pain. Patient has a history of Paget's disease, she is chronically on narcotic medications. Patient has been out of medication secondary to finances and inability to get to the primary care physician's office for refill. Her daughter is her primary ride and has been the hospital secondary to an illness as well. She describes pain in her back which is normal however worse. Patient denies any chest pain, shortness of breath, nausea, vomiting. Patient's pain is excruciating, she is tearful on exam. Movements make her pain worse. Review of Systems Review of Systems Constitutional: Denies fever or chills [] HENT: Denies nasal congestion or sore throat [] Respiratory: Denies cough or shortness of breath [] Cardiovascular: No additional information not addressed in HPI [] GI: Denies abdominal pain, nausea, vomiting, bloody stools or diarrhea [] : Denies dysuria or hematuria [] Musculoskeletal: acute on chronic back pain, low, pain to bilateral lower ext Neurologic: Denies headache, focal weakness or sensory changes [] All other systems were reviewed and found to be within normal limits, except as documented in this note. Current Medications Current Medications Current Medications Medications (Trade) Dose Ordered Sig/[facility] Start Time Stop Time Status Last Admin Dose Admin Fentanyl Citrate (Fentanyl 2ml Vial) 50 mcg 1X ONCE 05/03/19 13:15 05/03/19 13:16 DC 05/03/19 13:32 50 MCG Allergies Allergies Allergies Coded Allergies Type Severity Reaction Last Updated Verified [place] And Derivatives Allergy Intermediate 06/03/18 Yes Penicillins Allergy Intermediate 06/03/18 Yes Physical Exam Physical Exam Constitutional: Distress 2/2 pain, non-toxic appearing HENT: Normocephalic, atraumatic, bilateral external ears normal, oropharynx moist, no oral exudates, nose normal. [] Cardiovascular:Heart rate regular rhythm, no murmur [] Lungs & Thorax: Bilateral breath sounds clear to auscultation [] Abdomen: Bowel sounds normal, soft, no tenderness, no masses, no pulsatile masses. [] Skin: Warm, dry, no erythema, no rash. [] Back: tender to palpation, pain with ROM Extremities: No tenderness, no cyanosis, no clubbing, ROM intact, no edema. [] Neurologic: Alert and oriented X 3, no focal deficits noted. [] Psychologic: Tearful, 2/2 pain[] Current Patient Data Vital Signs Vital Signs Date Time Temp Pulse Resp B/P (MAP) Pulse Ox O2 Delivery O2 Flow Rate FiO2 05/03/19 13:32 18 98 Room Air 05/03/19 12:26 97.5 78 207/94 (131) 97.5 EKG EKG [] Radiology/Procedures Radiology/Procedures [] Course & Med Decision Making Course & Med Decision Making Pertinent Labs and Imaging studies reviewed. (See chart for details) []63-year-old female presents to the emergency department with complaints of back pain. Patient has a history of Paget's disease, she is chronically on narcotic medications. Patient has been out of medication secondary to finances and inability to get to the primary care physician's office for refill. Her daughter is her primary ride and has been the hospital secondary to an illness as well. She describes pain in her back which is normal however worse. Patient denies any chest pain, shortness of breath, nausea, vomiting. Patient's pain is excruciating, she is tearful on exam. Movements make her pain worse Fentanyl 50mcg IV x 1 No labs or imaging at this time given chronic process Reassessment 1418, patient's pain improved, she is watching TV, not tearful at this time Discussed discharge plan with the patient's family member. Kaleb Disclaimer [place] Disclaimer This electronic medical record was generated, in whole or in part, using a voice recognition dictation system. Departure Departure Impression: Primary Impression: Chronic pain Disposition: 01 HOME, SELF-CARE Condition: IMPROVED Referrals: UNKNOWN PCP NAME (PCP) Patient Instructions: Chronic Pain Additional Instructions: Recommend follow up with PCP 3 - 5 days Return to the ER with worsening symptoms, intractable pain, fever, altered mental status Tylenol/Motrin as needed for pain [place] rx provided for 3 days Scripts Hydrocodone Bit/Acetaminophen (HYDROCODONE-APAP 7.5-325 ) 1 Tab Tablet 1 TAB PO PRN Q6HRS PRN for PAIN for 3 Days, #12 TAB 0 Refills Prov: GERARDO LOMAX MD 05/03/19 Problem Qualifiers Primary Impression: Chronic pain Chronic pain type: other chronic pain Qualified Codes: G89.29 - Other chronic pain GERARDO LOMAX MD May 03, 2019 12:51
[2019-05-03] MEDS ORDERED: fentaNYL PF VIAL 100 MCG/2 ML VIAL IVP ONE (13:15)
[2019-05-03] MEDS ORDERED: HYDR-2765 PO (14:21)
[2019-05-03] MEDS ORDERED: hydrALAZINE 20 MG/ML VIAL. IVP ONE (14:30)
[2019-05-03 15:00] VITALS: BP 192/86
== END 2019-05-03 15:02 | disposition home or self-care (01) ==
LOC: ER 12:24
DX: G89.29 Other chronic pain (principal); M54.5 Low back pain; I11.0 Hypertensive heart disease with heart failure; I50.9 Heart failure, unspecified; E11.9 Type 2 diabetes mellitus without complications; Z90.710 Acquired absence of both cervix and uterus; Z98.890 Other specified postprocedural states; Z88.0 Allergy status to penicillin; Z91.018 Allergy to other foods
CPT/HCPCS: 96374; 96375; 99284; J0360; J3010

== ENCOUNTER 2019-07-02 17:43 | Emergency (ER) | payer MEDICARE ==
[~2019-07-02] VITALS: Ht 160 cm; Wt 96.2 kg
--- NOTE | 2019-07-02 18:23 | PHYS DOC ---
Past Medical History Past Medical History: CHF, Dementia, Diabetes-Type II, Hypertension, P.U.D., Seizure, Other Additional Past Medical Histor: paci menegitis of the brain, pagent's disease, sickle beta thalacemia Past Surgical History: Cholecystectomy, , Other Additional Past Surgical Histo: fluid removal brain Alcohol Use: None Drug Use: None Adult General Chief Complaint Chief Complaint: ABDOMINAL PAIN HPI HPI 64-year-old female with hypertension, chronic pain presents emergency Department with complaints of abdominal pain, back pain. Daughter states she has pain medications at home however is running low and her care physician appointments until next . She has been limiting her narcotic intake over the last couple days. Patient got so severe today she did take a 7.5 [place] however pain reportedly got worse and subsequently she brought the patient to the emergency department further evaluation. She denies any fever, nausea, vomiting, headache or visual changes. Nothing makes her pain worse, nothing makes her pain better. Patient as well as underlying history of anxiety. Review of Systems Review of Systems Constitutional: Denies fever or chills [] Respiratory: Denies cough or shortness of breath [] Cardiovascular: No additional information not addressed in HPI [] GI: + abdominal pain, no nausea, vomiting, bloody stools or diarrhea [] : Denies dysuria or hematuria [] Musculoskeletal: chronic back pain Neurologic: Denies headache, focal weakness or sensory changes [] All other systems were reviewed and found to be within normal limits, except as documented in this note. Current Medications Current Medications Current Medications Medications (Trade) Dose Ordered Sig/Anat Start Time Stop Time Status Last Admin Dose Admin Hydralazine HCl (Apresoline Inj) 10 mg 1X ONCE 07/02/19 19:45 07/02/19 19:46 DC 07/02/19 19:50 10 MG Morphine Sulfate (Morphine Sulfate) 4 mg 1X ONCE 07/02/19 18:30 07/02/19 18:31 DC 07/02/19 18:34 4 MG Ondansetron HCl (Zofran) 4 mg 1X ONCE 07/02/19 18:30 07/02/19 18:31 DC 07/02/19 18:34 4 MG Allergies Allergies Allergies Coded Allergies Type Severity Reaction Last Updated Verified Kathryn And Derivatives Allergy Intermediate 06/03/18 Yes Penicillins Allergy Intermediate 06/03/18 Yes Physical Exam Physical Exam Constitutional: Well developed, well nourished, mild distress 2/2 pain, non- toxic appearance. [] HENT: Normocephalic, atraumatic, bilateral external ears normal, oropharynx moist, no oral exudates, nose normal. [] Eyes: PERRLA, EOMI, conjunctiva normal, no discharge. [] Cardiovascular:Heart rate regular rhythm, no murmur [] Lungs & Thorax: Bilateral breath sounds clear to auscultation [] Abdomen: Bowel sounds normal, soft, no tenderness, no masses, no pulsatile masses. [] Skin: Warm, dry, no erythema, no rash. [] Back: No tenderness, no CVA tenderness. [] Extremities: No tenderness, no edema. [] Neurologic: Alert and oriented X 3, no focal deficits noted. [] Psychologic: Affect normal, judgement normal, mood normal. [] Current Patient Data Vital Signs Vital Signs Date Time Temp Pulse Resp B/P (MAP) Pulse Ox O2 Delivery O2 Flow Rate FiO2 07/02/19 19:50 73 215/98 07/02/19 18:34 16 97 Room Air 07/02/19 18:10 98.5 98.5 Lab Values Laboratory Tests Test 07/02/19 18:12 07/02/19 18:24 Urine Collection Type Unknown Urine Color Yellow Urine Clarity Clear Urine pH 6.5 Urine Specific [place] 1.010 Urine Protein Negative mg/dL (NEG-TRACE) Urine Glucose (UA) Negative mg/dL (NEG) Urine Ketones (Stick) Negative mg/dL (NEG) Urine Blood Negative (NEG) Urine Nitrite Negative (NEG) Urine Bilirubin Negative (NEG) Urine Urobilinogen Dipstick 0.2 mg/dL (0.2 mg/dL) Urine Leukocyte Esterase Small (NEG) Urine RBC 0 /HPF (0-2) Urine WBC 1-4 /HPF (0-4) Urine Squamous Epithelial Cells Few /LPF Urine Bacteria Few /HPF (0-FEW) White Blood Count 8.5 x10^3/uL (4.0-11.0) Red Blood Count 5.18 x10^6/uL (3.50-5.40) Hemoglobin 10.1 g/dL (12.0-15.5) L Hematocrit 31.3 % (36.0-47.0) L Mean Corpuscular Volume 61 fL (79-100) L Mean Corpuscular Hemoglobin 20 pg (25-35) L Mean Corpuscular Hemoglobin Concent 32 g/dL (31-37) Red Cell Distribution Width 16.7 % (11.5-14.5) H Platelet Count 207 x10^3/uL (140-400) Neutrophils (%) (Auto) 58 % (31-73) Lymphocytes (%) (Auto) 33 % (24-48) Monocytes (%) (Auto) 5 % (0-9) Eosinophils (%) (Auto) 2 % (0-3) Basophils (%) (Auto) 2 % (0-3) Neutrophils # (Auto) 4.9 x10^3/uL (1.8-7.7) Lymphocytes # (Auto) 2.8 x10^3/uL (1.0-4.8) Monocytes # (Auto) 0.4 x10^3/uL (0.0-1.1) Eosinophils # (Auto) 0.1 x10^3/uL (0.0-0.7) Basophils # (Auto) 0.2 x10^3/uL (0.0-0.2) Platelet Estimate Adequate (ADEQUATE) Hypochromasia Marked Anisocytosis Slight Microcytosis Marked Target Cells Few Ovalocytes Few Sodium Level 130 mmol/L (136-145) L Potassium Level 3.8 mmol/L (3.5-5.1) Chloride Level 94 mmol/L (98-107) L Carbon Dioxide Level 27 mmol/L (21-32) Anion Gap 9 (6-14) Blood Urea Nitrogen 9 mg/dL (7-20) Creatinine 0.9 mg/dL (0.6-1.0) Estimated GFR (Cockcroft-Gault) 76.0 BUN/Creatinine Ratio 10 (6-20) Glucose Level 103 mg/dL (70-99) H Calcium Level 8.9 mg/dL (8.5-10.1) Total Bilirubin 0.3 mg/dL (0.2-1.0) Aspartate Amino Transferase (AST) 13 U/L (15-37) L Alanine Aminotransferase (ALT) < 6 U/L (14-59) L Alkaline Phosphatase 80 U/L (46-116) Troponin I Quantitative 0.033 ng/mL (0.000-0.055) Total Protein 7.7 g/dL (6.4-8.2) Albumin 3.6 g/dL (3.4-5.0) Albumin/Globulin Ratio 0.9 (1.0-1.7) L Lipase 145 U/L (73-393) Laboratory Tests 07/02/19 18:24 Laboratory Tests 07/02/19 18:24 EKG EKG EKG reviewed, 181, normal sinus rhythm, left axis deviation, heart rate 80 nonurgent EKG[] Radiology/Procedures Radiology/Procedures [] Course & Med Decision Making Course & Med Decision Making Pertinent Labs and Imaging studies reviewed. (See chart for details) []64-year-old female with hypertension, chronic pain presents emergency Department with complaints of abdominal pain, back pain. Daughter states she has pain medications at home however is running low and her care physician appointments until next . She has been limiting her narcotic intake over the last couple days. Patient got so severe today she did take a 7.5 [place] however pain reportedly got worse and subsequently she brought the patient to the emergency department further evaluation. She denies any fever, nausea, vomiting, headache or visual changes. Nothing makes her pain worse, nothing makes her pain better. Patient as well as underlying history of anxiety. Reeval - 1934 pain improved in abdomen, she complains of leg pain Labs reviewed - patient with chronic low sodium, currently BP elevated in ER - hydralazine 10mg IV with improved BP Hydrocodone rx provided (#14) Kaleb Disclaimer Kaleb Disclaimer This electronic medical record was generated, in whole or in part, using a voice recognition dictation system. Departure Departure Impression: Primary Impression: Chronic pain Additional Impression: HTN (hypertension) Disposition: 01 HOME, SELF-CARE Condition: IMPROVED Referrals: UNKNOWN PCP NAME (PCP) Patient Instructions: Chronic Pain, Hypertension Additional Instructions: Recommend follow up with PCP 3 - 5 days Return to the ER with worsening symptoms, intractable pain, fever, altered mental status Tylenol/Motrin as needed for pain [place] #14 upon discharge Scripts Hydrocodone/Apap 5-325 (NORCO 5-325 TABLET) 1 Each Tablet 1 TAB PO PRN Q12HR PRN for PAIN, #14 TAB 0 Refills Prov: GERARDO LOMAX MD 07/02/19 Problem Qualifiers Primary Impression: Chronic pain Chronic pain type: chronic pain syndrome Qualified Codes: G89.4 - Chronic pain syndrome Additional Impression: HTN (hypertension) Hypertension type: essential hypertension Qualified Codes: I10 - Essential (primary) hypertension GERARDO LOMAX MD Jul 02, 2019 18:23
[2019-07-02] MEDS ORDERED: MORPHINE SULFATE 4 MG/ML VIAL. IV ONE (18:30)
[2019-07-02] MEDS ORDERED: ONDANSETRON PF 4 MG/2 ML VIAL. IV ONE (18:30)
[2019-07-02 18:40] LABS: BASO # 0.2 x10^3/uL (0.0-0.2); BASO % 2 % (0-3); EOS # 0.1 x10^3/uL (0.0-0.7); EOS % 2 % (0-3); HEMATOCRIT 31.3 % (36.0-47.0); HEMOGLOBIN 10.1 g/dL (12.0-15.5); LYMPH # 2.8 x10^3/uL (1.0-4.8); LYMPH % 33 % (24-48); MEAN CORPUSCULAR HEMOGLOBIN 20 pg (25-35); MEAN CORPUSCULAR HGB CONC 32 g/dL (31-37); MEAN CORPUSCULAR VOLUME 61 fL (79-100); MONO # 0.4 x10^3/uL (0.0-1.1); MONO % 5 % (0-9); NEUT # 4.9 x10^3/uL (1.8-7.7); NEUT % 58 % (31-73); PLATELET COUNT 207 x10^3/uL (140-400); RED BLOOD COUNT 5.18 x10^6/uL (3.50-5.40); RED CELL DISTRIBUTION WIDTH 16.7 % (11.5-14.5); WHITE BLOOD COUNT 8.5 x10^3/uL (4.0-11.0)
[2019-07-02 18:42] LABS: BILIRUBIN,URINE NEGATIVE (NEG); CLARITY,URINE CLEAR; COLOR,URINE YELLOW; NITRITE,URINE NEGATIVE (NEG); PH,URINE 6.5; PROTEIN,URINE NEGATIVE (NEG-TRACE); UROBILINOGEN,URINE 0.2 mg/dL (0.2 mg/dL)
[2019-07-02 18:50] LABS: ANION GAP 9 (6-14); BLOOD UREA NITROGEN 9 mg/dL (7-20); BUN/CREATININE RATIO 10 (6-20); CALCIUM 8.9 mg/dL (8.5-10.1); CARBON DIOXIDE 27 mmol/L (21-32); CHLORIDE 94 mmol/L (98-107); CREATININE 0.9 mg/dL (0.6-1.0); GLUCOSE 103 mg/dL (70-99); POTASSIUM 3.8 mmol/L (3.5-5.1); SODIUM 130 mmol/L (136-145)
[2019-07-02 18:53] LABS: BACTERIA,URINE FEW /HPF (0-FEW); RBC,URINE 0 /HPF (0-2); SQUAMOUS EPITHELIAL CELL,UR FEW /LPF
[2019-07-02 18:56] LABS: ALBUMIN 3.6 g/dL (3.4-5.0); ALBUMIN/GLOBULIN RATIO 0.9 (1.0-1.7); ALK PHOS 80 U/L (46-116); AST (SGOT) 13 U/L (15-37); LIPASE 145 U/L (73-393); TOTAL BILIRUBIN 0.3 mg/dL (0.2-1.0); TOTAL PROTEIN 7.7 g/dL (6.4-8.2)
[2019-07-02 18:58] LABS: ALT (SGPT) < 6 U/L (14-59)
[2019-07-02 19:16] LABS: PLT ESTIMATE ADEQUATE (ADEQUATE)
[2019-07-02 19:17] LABS: ANISOCYTOSIS SLIGHT; HYPOCHROMIA MARKED; MICROCYTOSIS MARKED; TARGET CELLS FEW
[2019-07-02 19:18] LABS: OVALOCYTES FEW
[2019-07-02] MEDS ORDERED: hydrALAZINE 20 MG/ML VIAL. IVP ONE (19:45)
[2019-07-02 20:16] VITALS: BP 176/84
[2019-07-02] MEDS ORDERED: HYDR-3164 PO (20:25)
--- NOTE | 2019-07-03 05:59 | EKG ---
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
== END 2019-07-02 20:53 | disposition home or self-care (01) ==
LOC: ER 17:43
DX: G89.4 Chronic pain syndrome (principal); I11.0 Hypertensive heart disease with heart failure; I50.9 Heart failure, unspecified; R10.9 Unspecified abdominal pain; E11.9 Type 2 diabetes mellitus without complications; Z90.49 Acquired absence of other specified parts of digestive tract; Z88.0 Allergy status to penicillin; Z91.018 Allergy to other foods
CPT/HCPCS: 36415; 80053; 81001; 83690; 84484; 85025; 87086; 93005; 96374; 96375; 99285; J0360; J2270; J2405

== ENCOUNTER 2019-07-16 06:56 | Inpatient (IN) | payer MEDICARE ==
[~2019-07-16] VITALS: Ht 160 cm; Wt 94.5 kg
[2019-07-16 07:30] LABS: BASO # 0.1 x10^3/uL (0.0-0.2); BASO % 1 % (0-3); EOS # 0.1 x10^3/uL (0.0-0.7); EOS % 1 % (0-3); HEMATOCRIT 30.9 % (36.0-47.0); LYMPH # 1.7 x10^3/uL (1.0-4.8); LYMPH % 29 % (24-48); MEAN CORPUSCULAR HEMOGLOBIN 19 pg (25-35); MEAN CORPUSCULAR HGB CONC 32 g/dL (31-37); MEAN CORPUSCULAR VOLUME 60 fL (79-100); MONO # 0.5 x10^3/uL (0.0-1.1); MONO % 8 % (0-9); NEUT # 3.6 x10^3/uL (1.8-7.7); NEUT % 61 % (31-73); PLATELET COUNT 239 x10^3/uL (140-400); RED BLOOD COUNT 5.19 x10^6/uL (3.50-5.40); RED CELL DISTRIBUTION WIDTH 16.2 % (11.5-14.5); WHITE BLOOD COUNT 5.9 x10^3/uL (4.0-11.0)
[2019-07-16 07:38] LABS: PROTHROMBIN TIME PATIENT 12.5 SEC (11.7-14.0)
[2019-07-16 07:39] LABS: CREATININE 0.7 mg/dL (0.6-1.0); GFR 101.6; POTASSIUM 3.6 mmol/L (3.5-5.1)
[2019-07-16 07:44] LABS: ALBUMIN 3.5 g/dL (3.4-5.0); MAGNESIUM 1.9 mg/dL (1.8-2.4); TOTAL BILIRUBIN 0.3 mg/dL (0.2-1.0); TOTAL PROTEIN 7.1 g/dL (6.4-8.2)
[2019-07-16] MEDS ORDERED: fentaNYL PF VIAL 100 MCG/2 ML VIAL IVP ONE (07:45)
--- NOTE | 2019-07-16 07:51 | RAD ---
EXAM: CT HEAD WITHOUT CONTRAST. HISTORY: Altered mental status. TECHNIQUE: Computed tomography of the head was performed without intravenous contrast. One or more of the following individualized dose reduction techniques were utilized for this examination: 1. Automated exposure control. 2. Adjustment of the mA and/or kV according to patient size. 3. Use of iterative reconstruction technique. COMPARISON: 09/11/2004. FINDINGS: There is no intracranial hemorrhage. There is left frontal encephalomalacia underlying a left frontal craniotomy defect. There is mild chronic microangiopathic white matter change elsewhere. Prominence of the lateral ventricles and hemispheric sulci indicates moderate atrophy. There is mild mucosal thickening in the left maxillary sinus. The orbits are unremarkable. The temporal bones are unremarkable. The calvarium reveals no suspicious lesions. IMPRESSION: 1. No acute intracranial findings. 2. Left frontal encephalomalacia status post craniotomy. 3. Moderate atrophy and mild chronic microangiopathic white matter change. Electronically signed by: Kemi Mata MD (07/16/2019 7:48 AM) [facility]
--- NOTE | 2019-07-16 07:57 | RAD ---
EXAM: CHEST ONE VIEW. HISTORY: Altered mental status. COMPARISON: 09/12/2018. FINDINGS: A frontal view of the chest is obtained. The inspiration is small. There are no confluent infiltrates. There is no pneumothorax or pleural effusion. The heart is not enlarged. IMPRESSION: 1. Small inspiration. No confluent infiltrates. Electronically signed by: Kemi Mata MD (07/16/2019 7:54 AM) [facility]
[2019-07-16] MEDS ORDERED: FUROSEMIDE 40 MG/4 ML VIAL. IVP ONE (08:15)
--- NOTE | 2019-07-16 08:21 | PHYS DOC ---
Past Medical History Past Medical History: CHF, Dementia, Diabetes-Type II, Hypertension, P.U.D., Seizure, Other Additional Past Medical Histor: paci menegitis of the brain, paget's disease, sickle beta thalacemia Past Surgical History: Cholecystectomy, , Other Additional Past Surgical Histo: fluid removal brain Alcohol Use: None Drug Use: None Adult General Chief Complaint Chief Complaint: ALTERED MENTAL STATUS [facility] HPI Patient is a 64 year old female patient with history of hypertension, CHF, diabetes mellitus, Paget disease, seizure, chronic pain on hydrocodone, dementia who presents with complaining of confusion. Patient is alert and oriented 1 and unable to give history. Patient's daughter states patient was confused more than her normal since last night and had the same symptoms with previous episodes of hyponatremia. Patient states she ran out of hydrocodone 2 or 3 days ago and supposed to take her medication tomorrow. Patient complaining of back pain. Review of Systems Review of Systems Constitutional: Denies fever or chills [] Eyes: Denies change in visual acuity, redness, or eye pain [] HENT: Denies nasal congestion or sore throat [] Respiratory: Denies cough or shortness of breath [] Cardiovascular: No additional information not addressed in HPI [] GI: Denies abdominal pain, nausea, vomiting, bloody stools or diarrhea [] : Denies dysuria or hematuria [] Musculoskeletal: Reports back pain Integument: Denies rash or skin lesions [] Neurologic: Denies headache, focal weakness or sensory changes [] Endocrine: Denies polyuria or polydipsia [] All other systems were reviewed and found to be within normal limits, except as documented in this note. Current Medications Current Medications Current Medications Medications (Trade) Dose Ordered Sig/Anat Start Time Stop Time Status Last Admin Dose Admin Fentanyl Citrate (Fentanyl 2ml Vial) 50 mcg 1X ONCE 07/16/19 07:45 07/16/19 07:46 DC 07/16/19 07:44 50 MCG Allergies Allergies Allergies Coded Allergies Type Severity Reaction Last Updated Verified [place] And Derivatives Allergy Intermediate 06/03/18 Yes Penicillins Allergy Intermediate 06/03/18 Yes Physical Exam Physical Exam Constitutional: Well nourished, mild distress, non-toxic appearance. [] HENT: Normocephalic, atraumatic. Eyes: PERRLA, EOMI, conjunctiva normal, no discharge. [] Neck: Normal range of motion, no tenderness, supple, no stridor. [] Cardiovascular:Heart rate regular rhythm, no murmur [] Lungs & Thorax: Bilateral breath sounds clear to auscultation [] Abdomen: Bowel sounds normal, soft, no tenderness, no masses, no pulsatile margarita s. [] Skin: Warm, dry, no erythema, no rash. [] Back: No tenderness, no CVA tenderness. [] Extremities: No tenderness, no cyanosis, no clubbing, ROM intact, no edema. [] Neurologic: Alert and oriented X 1, no focal deficits noted. [] Psychologic: Affect anxious. Current Patient Data Vital Signs Vital Signs Date Time Temp Pulse Resp B/P (MAP) Pulse Ox O2 Delivery O2 Flow Rate FiO2 07/16/19 07:51 70 18 98 07/16/19 07:02 98.5 198/102 (134) Room Air 98.5 Lab Values Laboratory Tests Test 07/16/19 07:13 White Blood Count 5.9 x10^3/uL (4.0-11.0) Red Blood Count 5.19 x10^6/uL (3.50-5.40) Hemoglobin 10.0 g/dL (12.0-15.5) L Hematocrit 30.9 % (36.0-47.0) L Mean Corpuscular Volume 60 fL (79-100) L Mean Corpuscular Hemoglobin 19 pg (25-35) L Mean Corpuscular Hemoglobin Concent 32 g/dL (31-37) Red Cell Distribution Width 16.2 % (11.5-14.5) H Platelet Count 239 x10^3/uL (140-400) Neutrophils (%) (Auto) 61 % (31-73) Lymphocytes (%) (Auto) 29 % (24-48) Monocytes (%) (Auto) 8 % (0-9) Eosinophils (%) (Auto) 1 % (0-3) Basophils (%) (Auto) 1 % (0-3) Neutrophils # (Auto) 3.6 x10^3/uL (1.8-7.7) Lymphocytes # (Auto) 1.7 x10^3/uL (1.0-4.8) Monocytes # (Auto) 0.5 x10^3/uL (0.0-1.1) Eosinophils # (Auto) 0.1 x10^3/uL (0.0-0.7) Basophils # (Auto) 0.1 x10^3/uL (0.0-0.2) Platelet Estimate Adequate (ADEQUATE) Polychromasia Slight Hypochromasia Slight Poikilocytosis Anisocytosis Slight Microcytosis Marked Target Cells Present Tear Drop Cells Occ Ovalocytes Few Prothrombin Time 12.5 SEC (11.7-14.0) Prothrombin Time INR 1.0 (0.8-1.1) Sodium Level 126 mmol/L (136-145) L Potassium Level 3.6 mmol/L (3.5-5.1) Chloride Level 90 mmol/L (98-107) L Carbon Dioxide Level 27 mmol/L (21-32) Anion Gap 9 (6-14) Blood Urea Nitrogen 10 mg/dL (7-20) Creatinine 0.7 mg/dL (0.6-1.0) Estimated GFR (Cockcroft-Gault) 101.6 BUN/Creatinine Ratio 14 (6-20) Glucose Level 96 mg/dL (70-99) Calcium Level 9.0 mg/dL (8.5-10.1) Magnesium Level 1.9 mg/dL (1.8-2.4) Total Bilirubin 0.3 mg/dL (0.2-1.0) Aspartate Amino Transferase (AST) 17 U/L (15-37) Alanine Aminotransferase (ALT) 10 U/L (14-59) L Alkaline Phosphatase 75 U/L (46-116) Creatine Kinase 155 U/L (26-192) Troponin I Quantitative < 0.017 ng/mL (0.000-0.055) DK-Ofo-C-Type Natriuretic Peptide 128 pg/mL (0-124) H Total Protein 7.1 g/dL (6.4-8.2) Albumin 3.5 g/dL (3.4-5.0) Albumin/Globulin Ratio 1.0 (1.0-1.7) Laboratory Tests 07/16/19 07:13 Laboratory Tests 07/16/19 07:13 EKG EKG EKG interpreted by me . EKG at 0709 showed normal sinus rhythm at rate of 82, left padilla axis, LVH, no acute ST and T-wave elevation. Radiology/Procedures Radiology/Procedures [][facility] [address] [place] [address] IMAGING REPORT Signed PATIENT: LAINE BRANTLEYUNT: [id number] : 1955 LOCATION: ER AGE: 64 SEX: F EXAM STATUS: PRE ER ORD. PHYSICIAN: GLENDA SCOTT MD REASON: confusion PROCEDURE: PORTABLE CHEST 1V EXAM: CHEST ONE VIEW. HISTORY: Altered mental status. COMPARISON: 09/12/2018. FINDINGS: A frontal view of the chest is obtained. The inspiration is small. There are no confluent infiltrates. There is no pneumothorax or pleural effusion. The heart is not enlarged. IMPRESSION: 1. Small inspiration. No confluent infiltrates. Electronically signed by: Kemi Mata MD (07/16/2019 7:54 AM) [facility] DICTATED and SIGNED BY: TRAM MATA MD DATE: 07/16/19 0754 [facility] [address] [place] [address] IMAGING REPORT Signed PATIENT: LAINE BRANTLEYUNT: [id number] : 1955 LOCATION: ER AGE: 64 SEX: F EXAM STATUS: PRE ER ORD. PHYSICIAN: GLENDA SCOTT MD REASON: confusion PROCEDURE: CT HEAD WO CONTRAST EXAM: CT HEAD WITHOUT CONTRAST. HISTORY: Altered mental status. TECHNIQUE: Computed tomography of the head was performed without intravenous contrast. One or more of the following individualized dose reduction techniques were utilized for this examination: 1. Automated exposure control. 2. Adjustment of the mA and/or kV according to patient size. 3. Use of iterative reconstruction technique. COMPARISON: 09/11/2004. FINDINGS: There is no intracranial hemorrhage. There is left frontal encephalomalacia underlying a left frontal craniotomy defect. There is mild chronic microangiopathic white matter change elsewhere. Prominence of the lateral ventricles and hemispheric sulci indicates moderate atrophy. There is mild mucosal thickening in the left maxillary sinus. The orbits are unremarkable. The temporal bones are unremarkable. The calvarium reveals no suspicious lesions. IMPRESSION: 1. No acute intracranial findings. 2. Left frontal encephalomalacia status post craniotomy. 3. Moderate atrophy and mild chronic microangiopathic white matter change. Electronically signed by: Kemi Mata MD (07/16/2019 7:48 AM) [facility] DICTATED and SIGNED BY: TRAM MATA MD DATE: 07/16/19 0748 Course & Med Decision Making Course & Med Decision Making Pertinent Labs and Imaging studies reviewed. (See chart for details) Examination of patient in ER showed 64-year-old male patient with history of dementia brought in by her daughter because of confusion and concern for hy ponatremia. Patient was alert and oriented 1 and had blood pressure of 192/102 at arrival to ER. She and treated with hydralazine and fentanyl with improvement of her pain and blood pressure. Sodium was 126 and IV fluid was given. Also because of history of drinking too much water and dilutional hyponatremia 1 dose of Lasix was ordered. Patient requiring admission for further evaluation and treatment. Discussed with Dr. Cooley who is in agreement with admission. Discussed findings and plan with patient and family, who acknowledge understanding and agreement. Dragon Disclaimer Dragon Disclaimer This electronic medical record was generated, in whole or in part, using a voice recognition dictation system. Departure Departure Impression: Primary Impression: Hyponatremia Additional Impressions: Hypertensive urgency Altered level of consciousness Anemia Dementia Encephalomalacia Disposition: ADMITTED INPATIENT (at 0810) Admitting Physician: [facility] (Dr. Cooley accepted admission at 0809) Condition: IMPROVED Referrals: UNKNOWN PCP NAME (PCP) Problem Qualifiers Additional Impressions: Anemia Anemia type: unspecified type Qualified Codes: D64.9 - Anemia, unspecified Dementia Dementia type: unspecified type Dementia behavioral disturbance: without behavioral disturbance Qualified Codes: F03.90 - Unspecified dementia without behavioral disturbance GLENDA SCOTT MD Jul 16, 2019 08:21
[2019-07-16] MEDS ORDERED: HYDROcodone/APAP 7.5/325MG 1 TAB TABLET PO PRN (08:30)
[2019-07-16] MEDS ORDERED: fentaNYL PF VIAL 100 MCG/2 ML VIAL IVP PRN (08:30)
[2019-07-16] MEDS ORDERED: hydrALAZINE 20 MG/ML VIAL. IVP ONE (08:30)
[2019-07-16] MEDS ORDERED: IV NORMAL SALINE 500ML BAG 500 ML IV ONE (08:30)
[2019-07-16 08:35] LABS: PLT ESTIMATE ADEQUATE (ADEQUATE)
[2019-07-16 08:38] LABS: ANISOCYTOSIS SLIGHT; HYPOCHROMIA SLIGHT; MICROCYTOSIS MARKED; POLYCHROMASIA SLIGHT
[2019-07-16 08:40] LABS: TARGET CELLS PRESENT
[2019-07-16 08:41] LABS: OVALOCYTES FEW; TEAR DROP CELLS OCC
[2019-07-16 08:55] VITALS: BP 207/86
[2019-07-16] MEDS: POLYETHYLENE GLYCOL 3350 17 GM PACKET. PO SCH (09:00)
[2019-07-16 09:17] LABS: BILIRUBIN,URINE NEGATIVE (NEG); CLARITY,URINE CLEAR; COLOR,URINE YELLOW; NITRITE,URINE NEGATIVE (NEG); PROTEIN,URINE NEGATIVE (NEG-TRACE); UROBILINOGEN,URINE 0.2 mg/dL (0.2 mg/dL)
[2019-07-16 09:22] LABS: BARBITURATES NEG (NEG); BENZODIAZEPINES NEG (NEG); CANNABINOIDS NEG (NEG); COCAINE NEG (NEG); METHADONE NEG (NEG); OPIATES NEG (NEG); PHENCYCLIDINE NEG (NEG)
[2019-07-16 09:24] LABS: AMPHETAMINE/METHAMPHETAMINE NEG (NEG)
[2019-07-16 09:26] LABS: SQUAMOUS EPITHELIAL CELL,UR MOD /LPF
[2019-07-16] MEDS: LOSARTAN POTASSIUM 50 MG TABLET. PO SCH (09:26)
[2019-07-16] MEDS: METOPROLOL SUCC 24HR ER 25 MG TAB.ER.24H. PO SCH (09:27)
[2019-07-16] MEDS: HYOSCYAMINE 0.125 MG TAB.RAPDIS PO SCH ×4 (09:27→20:52)
[2019-07-16 09:28] LABS: BACTERIA,URINE FEW /HPF (0-FEW)
[2019-07-16] MEDS: ASPIRIN CHEWABLE 81 MG TABLET. PO SCH (09:28)
[2019-07-16] MEDS: DIVALPROEX DELAYED RELEASE 500 MG TABLET.DR. PO SCH ×2 (09:28→20:53)
[2019-07-16] MEDS: PANTOPRAZOLE 40 MG TABLET.DR. PO SCH (09:28)
[2019-07-16] MEDS: oxyCODONE/APAP 5/325 1 TAB TABLET PO PRN ×2 (09:28→18:07)
--- NOTE | 2019-07-16 09:32 | PDOC1 ---
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 NA 126, Hx of hyponatremia yr ago, DTr has been noticing polydipsia, hx DM but was taken off OHA bec of good control Past Medical History Cardiovascular: CHF, HTN Pulmonary: No pertinent hx CENTRAL NERVOUS SYSTEM: Dementia, Seizure, Other GI: No pertinent hx Heme/Onc: No pertinent hx Hepatobiliary: No pertinent hx Psych: No pertinent hx Musculoskeletal: Other Rheumatologic: No pertinent hx Infectious disease: No pertinent hx Renal/: No pertinent hx Endocrine: Diabetes Past Surgical History Past Surgical History: Other (LP, etc BMA biospy?) Family History Family History: Hypertension Social History Smoke: No ALCOHOL: none Drugs: None Current Problem List Problem List Problems Medical Problems: (1) Altered level of consciousness Status: Acute (2) Anemia Status: Acute (3) Dementia Status: Acute (4) Encephalomalacia Status: Acute (5) Hypertensive urgency Status: Acute (6) Hyponatremia Status: Acute Current Medications Current Medications Current Medications Fentanyl Citrate (Fentanyl 2ml Vial) 50 mcg 1X ONCE IVP Last administered on 07/16/19at 07:44; Start 07/16/19 at 07:45; Stop 07/16/19 at 07:46; Status DC Sodium Chloride 500 ml @ 500 mls/hr 1X ONCE IV Last administered on 07/16/19at 08:06; Start 07/16/19 at 08:30; Stop 07/16/19 at 09:29 Hydralazine HCl (Apresoline Inj) 10 mg 1X ONCE IVP Last administered on 07/16/19at 08:06; Start 07/16/19 at 08:30; Stop 07/16/19 at 08:31; Status DC Sodium Chloride 1,000 ml @ 100 mls/hr Q10H IV ; Start 07/16/19 at 08:12; Stop 07/17/19 at 08:11 Furosemide (Lasix) 40 mg 1X ONCE IVP ; Start 07/16/19 at 08:15; Stop 07/16/19 at 08:21; Status DC Hydralazine HCl (Apresoline Inj) 10 mg PRN Q4HRS PRN IVP ELEVATED BP, SEE COMMENTS; Start 07/16/19 at 08:30 Fentanyl Citrate (Fentanyl 2ml Vial) 50 mcg PRN Q2HR PRN IVP MODERATE-SEVERE PAIN; Start 07/16/19 at 08:30 Oxycodone/ Acetaminophen (Percocet 5/325) 1 tab PRN Q4HRS PRN PO MODERATE- SEVERE PAIN; Start 07/16/19 at 08:30 Aspirin (Children'S Aspirin) 81 mg DAILY PO ; Start 07/16/19 at 09:00 Divalproex Sodium (Depakote) 500 mg BID PO ; Start 07/16/19 at 09:00 Acetaminophen/ Hydrocodone Bitart (Lortab 7.5/325) 1 tab PRN Q6HRS PRN PO MOD- SEVERE PAIN, 2ND CHOICE; Start 07/16/19 at 08:30 Acetaminophen/ Hydrocodone Bitart (Lortab 7.5/325) 1 tab PRN Q6HRS PRN PO PAIN; Start 07/16/19 at 08:30; Stop 07/16/19 at 08:45; Status DC Metoprolol Succinate (Toprol Xl) 50 mg DAILY PO ; Start 07/16/19 at 09:00 Polyethylene Glycol (miraLAX PACKET) 17 gm DAILY PO ; Start 07/16/19 at 09:00 Hyoscyamine (Anaspaz) 0.125 mg QID PO ; Start 07/16/19 at 09:00 Losartan Potassium (Cozaar) 100 mg DAILY PO ; Start 07/16/19 at 09:00 Pantoprazole Sodium (Protonix) 40 mg DAILYAC PO ; Start 07/16/19 at 09:30 Active Scripts Active [place] 5-325 Tablet (Acetaminophen/Hydrocodone Bitart) 1 Each Tablet 1 Tab PO PRN Q12HR PRN Hydrocodone-Apap 7.5-325 (Hydrocodone Bit/Acetaminophen) 1 Tab Tablet 1 Tab PO PRN Q6HRS PRN 3 Days Hydrocodone-Apap 7.5-325 (Hydrocodone Bit/Acetaminophen) 1 Tab Tablet 1 Tab PO PRN Q6HRS PRN 3 Days Aspirin 81 Mg Tab.chew 1 Tab PO DAILY 30 Days Protonix (Pantoprazole Sodium) 20 Mg Tablet.dr 40 Mg PO DAILY 30 Days Metoprolol Succinate ( Xl ) (Metoprolol Succinate) 25 Mg Tab.er.24h 50 Mg PO DA CHRISTOS 30 Days Divalproex Sodium 500 Mg Tablet.dr 1 Tab PO BID 30 Days Losartan Potassium 100 Mg Tablet 100 Mg PO DAILY 30 Days Miralax (Polyethylene Glycol 3350) 119 Gm Powder 1 Tbs PO DAILY 30 Days Levsin (Hyoscyamine Sulfate) 0.125 Mg Tablet 0.125 Mg PO QID 30 Days [place] 5-325 Tablet (Acetaminophen/Hydrocodone Bitart) 1 Each Tablet 1 Tab PO PRN Q6HRS PRN Allergies Allergies: Coded Allergies: [place]born And Derivatives (Verified Allergy, Intermediate, 06/03/18) Penicillins (Verified Allergy, Intermediate, 06/03/18) ROS Review of System pain everyhwere, chest hurts bec of pain when breathing Physical Exam General: Alert, Oriented X3, Cooperative, No acute distress HEENT: Atraumatic, PERRLA, EOMI Lungs: Clear to auscultation, Normal air movement Heart: S1S2, RRR, no gallops, no murmurs Cardiovascular: S1, S2 Breasts: Normal, Rt breast nml w/o mass, Lt breast nml w/o mass, Nipples normal Abdomen: Normal bowel sounds, Soft, No tenderness, No hepatosplenomegaly, No masses PELVIC: Nml ext genitalia Extremities: No clubbing, No cyanosis, No edema, Normal pulses, No tenderness/swelling Skin: No rashes, No breakdown, No significant lesion Neuro: Normal gait, Normal speech, Strength at 5/5 X4 ext, Normal tone, Sensation intact, Cranial nerves 3-12 NL, Reflexes 2+ Psych/Mental Status: Mental status NL, Mood NL Vitals Vitals Vital Signs Date Time Temp Pulse Resp B/P (MAP) Pulse Ox O2 Delivery O2 Flow Rate FiO2 07/16/19 08:06 59 205/113 07/16/19 07:51 18 98 07/16/19 07:02 98.5 Room Air 98.5 Labs Labs Laboratory Tests Test 07/16/19 07:13 07/16/19 08:10 07/16/19 09:10 White Blood Count 5.9 x10^3/uL (4.0-11.0) Red Blood Count 5.19 x10^6/uL (3.50-5.40) Hemoglobin 10.0 g/dL (12.0-15.5) Hematocrit 30.9 % (36.0-47.0) Mean Corpuscular Volume 60 fL (79-100) Mean Corpuscular Hemoglobin 19 pg (25-35) Mean Corpuscular Hemoglobin Concent 32 g/dL (31-37) Red Cell Distribution Width 16.2 % (11.5-14.5) Platelet Count 239 x10^3/uL (140-400) Neutrophils (%) (Auto) 61 % (31-73) Lymphocytes (%) (Auto) 29 % (24-48) Monocytes (%) (Auto) 8 % (0-9) Eosinophils (%) (Auto) 1 % (0-3) Basophils (%) (Auto) 1 % (0-3) Neutrophils # (Auto) 3.6 x10^3/uL (1.8-7.7) Lymphocytes # (Auto) 1.7 x10^3/uL (1.0-4.8) Monocytes # (Auto) 0.5 x10^3/uL (0.0-1.1) Eosinophils # (Auto) 0.1 x10^3/uL (0.0-0.7) Basophils # (Auto) 0.1 x10^3/uL (0.0-0.2) Platelet Estimate Adequate (ADEQUATE) Polychromasia Slight Hypochromasia Slight Poikilocytosis Anisocytosis Slight Microcytosis Marked Target Cells Present Tear Drop Cells Occ Ovalocytes Few Prothrombin Time 12.5 SEC (11.7-14.0) Prothromb Time International Ratio 1.0 (0.8-1.1) Sodium Level 126 mmol/L (136-145) Potassium Level 3.6 mmol/L (3.5-5.1) Chloride Level 90 mmol/L (98-107) Carbon Dioxide Level 27 mmol/L (21-32) Anion Gap 9 (6-14) Blood Urea Nitrogen 10 mg/dL (7-20) Creatinine 0.7 mg/dL (0.6-1.0) Estimated GFR (Cockcroft-Gault) 101.6 BUN/Creatinine Ratio 14 (6-20) Glucose Level 96 mg/dL (70-99) Calcium Level 9.0 mg/dL (8.5-10.1) Magnesium Level 1.9 mg/dL (1.8-2.4) Total Bilirubin 0.3 mg/dL (0.2-1.0) Aspartate Amino Transf (AST/SGOT) 17 U/L (15-37) Alanine Aminotransferase (ALT/SGPT) 10 U/L (14-59) Alkaline Phosphatase 75 U/L (46-116) Creatine Kinase 155 U/L (26-192) Troponin I Quantitative < 0.017 ng/mL (0.000-0.055) [id number]-[id number]-Type Natriuretic Peptide 128 pg/mL (0-124) Total Protein 7.1 g/dL (6.4-8.2) Albumin 3.5 g/dL (3.4-5.0) Albumin/Globulin Ratio 1.0 (1.0-1.7) Lactic Acid Level 0.8 mmol/L (0.4-2.0) Ammonia 11 mcmol/L (11-34) Thyroid Stimulating Hormone (TSH) 1.963 uIU/mL (0.358-3.74) Urine Opiates Screen Neg (NEG) Urine Methadone Screen Neg (NEG) Urine Barbiturates Neg (NEG) Urine Phencyclidine Screen Neg (NEG) Urine Amphetamine/Methamphetamine Neg (NEG) Urine Benzodiazepines Screen Neg (NEG) Urine Cocaine Screen Neg (NEG) Urine Cannabinoids Screen Neg (NEG) Urine Ethyl Alcohol Neg (NEG) Laboratory Tests Test 07/16/19 07:13 07/16/19 08:10 07/16/19 09:10 White Blood Count 5.9 x10^3/uL (4.0-11.0) Red Blood Count 5.19 x10^6/uL (3.50-5.40) Hemoglobin 10.0 g/dL (12.0-15.5) Hematocrit 30.9 % (36.0-47.0) Mean Corpuscular Volume 60 fL (79-100) Mean Corpuscular Hemoglobin 19 pg (25-35) Mean Corpuscular Hemoglobin Concent 32 g/dL (31-37) Red Cell Distribution Width 16.2 % (11.5-14.5) Platelet Count 239 x10^3/uL (140-400) Neutrophils (%) (Auto) 61 % (31-73) Lymphocytes (%) (Auto) 29 % (24-48) Monocytes (%) (Auto) 8 % (0-9) Eosinophils (%) (Auto) 1 % (0-3) Basophils (%) (Auto) 1 % (0-3) Neutrophils # (Auto) 3.6 x10^3/uL (1.8-7.7) Lymphocytes # (Auto) 1.7 x10^3/uL (1.0-4.8) Monocytes # (Auto) 0.5 x10^3/uL (0.0-1.1) Eosinophils # (Auto) 0.1 x10^3/uL (0.0-0.7) Basophils # (Auto) 0.1 x10^3/uL (0.0-0.2) Platelet Estimate Adequate (ADEQUATE) Polychromasia Slight Hypochromasia Slight Poikilocytosis Anisocytosis Slight Microcytosis Marked Target Cells Present Tear Drop Cells Occ Ovalocytes Few Prothrombin Time 12.5 SEC (11.7-14.0) Prothromb Time International Ratio 1.0 (0.8-1.1) Sodium Level 126 mmol/L (136-145) Potassium Level 3.6 mmol/L (3.5-5.1) Chloride Level 90 mmol/L (98-107) Carbon Dioxide Level 27 mmol/L (21-32) Anion Gap 9 (6-14) Blood Urea Nitrogen 10 mg/dL (7-20) Creatinine 0.7 mg/dL (0.6-1.0) Estimated GFR (Cockcroft-Gault) 101.6 BUN/Creatinine Ratio 14 (6-20) Glucose Level 96 mg/dL (70-99) Calcium Level 9.0 mg/dL (8.5-10.1) Magnesium Level 1.9 mg/dL (1.8-2.4) Total Bilirubin 0.3 mg/dL (0.2-1.0) Aspartate Amino Transf (AST/SGOT) 17 U/L (15-37) Alanine Aminotransferase (ALT/SGPT) 10 U/L (14-59) Alkaline Phosphatase 75 U/L (46-116) Creatine Kinase 155 U/L (26-192) Troponin I Quantitative < 0.017 ng/mL (0.000-0.055) WP-Zbr-H-Type Natriuretic Peptide 128 pg/mL (0-124) Total Protein 7.1 g/dL (6.4-8.2) Albumin 3.5 g/dL (3.4-5.0) Albumin/Globulin Ratio 1.0 (1.0-1.7) Lactic Acid Level 0.8 mmol/L (0.4-2.0) Ammonia 11 mcmol/L (11-34) Thyroid Stimulating Hormone (TSH) 1.963 uIU/mL (0.358-3.74) Urine Opiates Screen Neg (NEG) Urine Methadone Screen Neg (NEG) Urine Barbiturates Neg (NEG) Urine Phencyclidine Screen Neg (NEG) Urine Amphetamine/Methamphetamine Neg (NEG) Urine Benzodiazepines Screen Neg (NEG) Urine Cocaine Screen Neg (NEG) Urine Cannabinoids Screen Neg (NEG) Urine Ethyl Alcohol Neg (NEG) VTE Prophylaxis Ordered VTE Prophylaxis Devices: Yes VTE Pharmacological Prophylaxi: Yes Assessment/Plan Assessment/Plan HTN emergency = SBP 200s HYponatremai, could be SIADH - NS IVF, renal consult, check TSH PLeuritic CP - at least order CXR in this HTN pt Met enceph - altered MS was the initial complaint, she seems to be much better now PAgets dse - dx 5 yrs ago research, flare? - complaining of arthritic kind of pain, heme onc plus pain control Dw dtr and RN suad See orders MUSTAPHA PENNY MD Jul 16, 2019 09:31
[2019-07-16] MEDS: IV NORMAL SALINE 1000ML BAG 1,000 ML IV SCH ×2 (09:36→18:12)
[2019-07-16 11:00] VITALS: BP 192/93
--- NOTE | 2019-07-16 11:20 | PDOC2 ---
CONSULT Date of Consult Date of Consult DATE: 07/16/19 TIME: 11:08 Reason for Consult Reason for Consult: Paget's/Anemia Referring Physician Referring Physician: Yasir Source Source: Caregiver, Chart review, Patient (Pt is very hard of hearing and not a great historian. History was obtained moslty from telephone call from her daughter) History of Present Illness Reason for Visit: 64 yo female who was admitted to [facility] 5 years ago with diffuse back pain. During the course of that hospitalization she was diagnosed with Paget's disease. She has not followed up with anyone in regards to the Paget's since that time. She has a primary care doctor at ([facility] She presented to the hospital with diffuse pain and tenderness everywhere. SHe also had elevated BP with SBP over 200 and hyponatremia and she was admitted. 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 She has had transfusions in the past due to anemia. Past Medical History Cardiovascular: CHF, HTN Pulmonary: No pertinent hx CENTRAL NERVOUS SYSTEM: Dementia, Seizure, Other GI: No pertinent hx Heme/Onc: No pertinent hx Hepatobiliary: No pertinent hx Psych: No pertinent hx Musculoskeletal: Other Rheumatologic: No pertinent hx Infectious disease: No pertinent hx Renal/: No pertinent hx Endocrine: Diabetes Past Surgical History Past Surgical History: Other (LP, etc BMA biospy?) Family History Family History Sickle cell and Beta thal run in family Paget's disease? in family Family History: Hypertension Social History No ALCOHOL: none Drugs: None Lives: with Family Current Problem List Problem List Problems Medical Problems: (1) Altered level of consciousness Status: Acute (2) Anemia Status: Acute (3) Dementia Status: Acute (4) Encephalomalacia Status: Acute (5) Hypertensive urgency Status: Acute (6) Hyponatremia Status: Acute Current Medications Current Medications Current Medications Fentanyl Citrate (Fentanyl 2ml Vial) 50 mcg 1X ONCE IVP Last administered on 1 09/16/18at 07:44; Start 07/16/19 at 07:45; Stop 07/16/19 at 07:46; Status DC Sodium Chloride 500 ml @ 500 mls/hr 1X ONCE IV Last administered on 07/16/19at 08:06; Start 07/16/19 at 08:30; Stop 07/16/19 at 09:29; Status DC Hydralazine HCl (Apresoline Inj) 10 mg 1X ONCE IVP Last administered on 07/16/19at 08:06; Start 07/16/19 at 08:30; Stop 07/16/19 at 08:31; Status DC Sodium Chloride 1,000 ml @ 100 mls/hr Q10H IV Last administered on 07/16/19at 09:36; Start 07/16/19 at 08:12; Stop 07/17/19 at 08:11 Furosemide (Lasix) 40 mg 1X ONCE IVP Last administered on 07/16/19at 09:29; Start 07/16/19 at 08:15; Stop 07/16/19 at 08:21; Status DC Hydralazine HCl (Apresoline Inj) 10 mg PRN Q4HRS PRN IVP ELEVATED BP, SEE COMMENTS; Start 07/16/19 at 08:30 Fentanyl Citrate (Fentanyl 2ml Vial) 50 mcg PRN Q2HR PRN IVP MODERATE-SEVERE PAIN; Start 07/16/19 at 08:30 Oxycodone/ Acetaminophen (Percocet 5/325) 1 tab PRN Q4HRS PRN PO MODERATE- SEVERE PAIN Last administered on 07/16/19at 09:28; Start 07/16/19 at 08:30 Aspirin (Children'S Aspirin) 81 mg DAILY PO Last administered on 07/16/19at 09:28; Start 07/16/19 at 09:00 Divalproex Sodium (Depakote) 500 mg BID PO Last administered on 07/16/19at 09:28; Start 07/16/19 at 09:00 Acetaminophen/ Hydrocodone Bitart (Lortab 7.5/325) 1 tab PRN Q6HRS PRN PO MOD- SEVERE PAIN, 2ND CHOICE; Start 07/16/19 at 08:30 Acetaminophen/ Hydrocodone Bitart (Lortab 7.5/325) 1 tab PRN Q6HRS PRN PO PAIN; Start 07/16/19 at 08:30; Stop 07/16/19 at 08:45; Status DC Metoprolol Succinate (Toprol Xl) 50 mg DAILY PO Last administered on 07/16/19at 09:27; Start 07/16/19 at 09:00 Polyethylene Glycol (miraLAX PACKET) 17 gm DAILY PO ; Start 07/16/19 at 09:00 Hyoscyamine (Anaspaz) 0.125 mg QID PO Last administered on 07/16/19at 09:27; S tart 07/16/19 at 09:00 Losartan Potassium (Cozaar) 100 mg DAILY PO Last administered on 07/16/19at 09:26; Start 07/16/19 at 09:00 Pantoprazole Sodium (Protonix) 40 mg DAILYAC PO Last administered on 07/16/19at 09:28; Start 07/16/19 at 09:30 Active Scripts Active [place] 5-325 Tablet (Acetaminophen/Hydrocodone Bitart) 1 Each Tablet 1 Tab PO PRN Q12HR PRN Hydrocodone-Apap 7.5-325 (Hydrocodone Bit/Acetaminophen) 1 Tab Tablet 1 Tab PO PRN Q6HRS PRN 3 Days Hydrocodone-Apap 7.5-325 (Hydrocodone Bit/Acetaminophen) 1 Tab Tablet 1 Tab PO PRN Q6HRS PRN 3 Days Aspirin 81 Mg Tab.chew 1 Tab PO DAILY 30 Days Protonix (Pantoprazole Sodium) 20 Mg Tablet.dr 40 Mg PO DAILY 30 Days Metoprolol Succinate ( Xl ) (Metoprolol Succinate) 25 Mg Tab.er.24h 50 Mg PO DAILY 30 Days Divalproex Sodium 500 Mg Tablet.dr 1 Tab PO BID 30 Days Losartan Potassium 100 Mg Tablet 100 Mg PO DAILY 30 Days Miralax (Polyethylene Glycol 3350) 119 Gm Powder 1 Tbs PO DAILY 30 Days Levsin (Hyoscyamine Sulfate) 0.125 Mg Tablet 0.125 Mg PO QID 30 Days [place] 5-325 Tablet (Acetaminophen/Hydrocodone Bitart) 1 Each Tablet 1 Tab PO PRN Q6HRS PRN Allergies Allergies: Coded Allergies: [place] And Derivatives (Verified Allergy, Intermediate, 06/03/18) Penicillins (Verified Allergy, Intermediate, 06/03/18) ROS General: YES: Fatigue, Malaise; No: Chills, Night Sweats, Appetite, Other PSYCHOLOGICAL ROS: No: Anxiety, Behavioral Disorder, Concentration difficultie, Decreased libido, Depression, Disorientation, Hallucinations, Hostility, Irritablity, Memory difficulties, Mood Swings, Obsessive thoughts, Physical abuse, Sexual abuse, Sleep disturbances, Suicidal ideation, Other Eyes: No Blurry vision, No Decreased vision, No Double vision, No Dry eyes, No Excessive tearing, No Eye Pain, No Itchy Eyes, No Loss of vision, No Photophobia, No Scotomata, No Uses contacts, No Uses glasses, No Other HEENT: No: Heacaches, Visual Changes, Hearing change, Nasal congestion, Nasal discharge, Oral lesions, Sinus pain, Sore Throat, Epistaxis, Sneezing, Snoring, Tinnitus, Vertigo, Vocal changes, Other ALLERGY AND IMMUNOLOGY: No: Hives, Insect Bite Sensitivity, Itchy/Watery Eyes, Nasal Congestion, Post Nasal Drip, Seasonal Allergies, Other Hematological and Lymphatic: No: Bleeding Problems, Blood Clots, Blood Transfusions, Brusing, Night Sweats, Pallor, Swollen Lymph Nodes, Other ENDOCRINE: No: Breast Changes, Galactorrhea, Hair Pattern Changes, Hot Flashes, Malaise/lethargy, Mood Swings, Palpitations, Polydipsia/polyuria, Skin Changes, Temperature Intolerance, Unexpected Weight Changes, Other Breast: No New/Changing Breast Lumps, No Nipple changes, No Nipple discharge, No Other Respiratory: No: Cough, Hemoptysis, Orthopnea, Pleuritic Pain, Shortness of breath, SOB with excertion, Sputum Changes, Stridor, Tachypnea, Wheezing, Other Cardiovascular: No Chest Pain, No Palpitations, No Orthopnea, No Paroxysmal Noc. Dyspnea, No Edema, No Lt Headedness, No Other Genitourinary: No Dysuria, No Frequency, No Incontinence, No Hematuria, No Retention, No Discharge, No Urgency, No Pain, No Flank Pain, No Other, No , No , No , No , No , No , No Musculoskeletal: Yes Joint Pain, Yes Joint Stiffness, Yes Muscle Pain Neurological: Yes Confusion; No Behavorial Changes, No Bowel/Bladder ControlChng, No Dizziness, No Gait Disturbance, No Headaches, No Impaired Coord/balance, No Memory Loss, No Numbness/Tingling, No Seizures, No Speech Problems, No Tremors, No Visual Changes, No Weakness, No Other Skin: No Dry Skin, No Eczema, No Hair Changes, No Lumps, No Mole Changes, No Mottling, No Nail Changes, No Pruritus, No Rash, No Skin Lesion Changes, No Other, No Acne Physical Exam General: Alert, Oriented X3, Cooperative HEENT: PERRLA Lungs: Clear to auscultation Heart: Regular rate, Normal S1 Abdomen: Normal bowel sounds, Soft Extremities: No clubbing, No cyanosis Vitals VITALS Vital Signs Date Time Temp Pulse Resp B/P (MAP) Pulse Ox O2 Delivery O2 Flow Rate FiO2 07/16/19 09:28 Room Air 07/16/19 09:27 59 205/113 07/16/19 08:55 98.1 20 99 98.1 Labs Labs Laboratory Tests Test 07/16/19 07:13 07/16/19 08:10 07/16/19 09:10 White Blood Count 5.9 x10^3/uL (4.0-11.0) Red Blood Count 5.19 x10^6/uL (3.50-5.40) Hemoglobin 10.0 g/dL (12.0-15.5) Hematocrit 30.9 % (36.0-47.0) Mean Corpuscular Volume 60 fL (79-100) Mean Corpuscular Hemoglobin 19 pg (25-35) Mean Corpuscular Hemoglobin Concent 32 g/dL (31-37) Red Cell Distribution Width 16.2 % (11.5-14.5) Platelet Count 239 x10^3/uL (140-400) Neutrophils (%) (Auto) 61 % (31-73) Lymphocytes (%) (Auto) 29 % (24-48) Monocytes (%) (Auto) 8 % (0-9) Eosinophils (%) (Auto) 1 % (0-3) Basophils (%) (Auto) 1 % (0-3) Neutrophils # (Auto) 3.6 x10^3/uL (1.8-7.7) Lymphocytes # (Auto) 1.7 x10^3/uL (1.0-4.8) Monocytes # (Auto) 0.5 x10^3/uL (0.0-1.1) Eosinophils # (Auto) 0.1 x10^3/uL (0.0-0.7) Basophils # (Auto) 0.1 x10^3/uL (0.0-0.2) Platelet Estimate Adequate (ADEQUATE) Polychromasia Slight Hypochromasia Slight Poikilocytosis Anisocytosis Slight Microcytosis Marked Target Cells Present Tear Drop Cells Occ Ovalocytes Few Prothrombin Time 12.5 SEC (11.7-14.0) Prothromb Time International Ratio 1.0 (0.8-1.1) Sodium Level 126 mmol/L (136-145) Potassium Level 3.6 mmol/L (3.5-5.1) Chloride Level 90 mmol/L (98-107) Carbon Dioxide Level 27 mmol/L (21-32) Anion Gap 9 (6-14) Blood Urea Nitrogen 10 mg/dL (7-20) Creatinine 0.7 mg/dL (0.6-1.0) Estimated GFR (Cockcroft-Gault) 101.6 BUN/Creatinine Ratio 14 (6-20) Glucose Level 96 mg/dL (70-99) Calcium Level 9.0 mg/dL (8.5-10.1) Magnesium Level 1.9 mg/dL (1.8-2.4) Total Bilirubin 0.3 mg/dL (0.2-1.0) Aspartate Amino Transf (AST/SGOT) 17 U/L (15-37) Alanine Aminotransferase (ALT/SGPT) 10 U/L (14-59) Alkaline Phosphatase 75 U/L (46-116) Creatine Kinase 155 U/L (26-192) Troponin I Quantitative < 0.017 ng/mL (0.000-0.055) [id number] Natriuretic Peptide 128 pg/mL (0-124) Total Protein 7.1 g/dL (6.4-8.2) Albumin 3.5 g/dL (3.4-5.0) Albumin/Globulin Ratio 1.0 (1.0-1.7) Lactic Acid Level 0.8 mmol/L (0.4-2.0) Ammonia 11 mcmol/L (11-34) Thyroid Stimulating Hormone (TSH) 1.963 uIU/mL (0.358-3.74) Urine Collection Type Unknown Urine Color Yellow Urine Clarity Clear Urine pH 7.0 Urine Specific Reading 1.010 Urine Protein Negative mg/dL (NEG-TRACE) Urine Glucose (UA) Negative mg/dL (NEG) Urine Ketones (Stick) Negative mg/dL (NEG) Urine Blood Negative (NEG) Urine Nitrite Negative (NEG) Urine Bilirubin Negative (NEG) Urine Urobilinogen Dipstick 0.2 mg/dL (0.2 mg/dL) Urine Leukocyte Esterase Trace (NEG) Urine RBC 1-2 /HPF (0-2) Urine WBC 1-4 /HPF (0-4) Urine Squamous Epithelial Cells Mod /LPF Urine Bacteria Few /HPF (0-FEW) Urine Opiates Screen Neg (NEG) Urine Methadone Screen Neg (NEG) Urine Barbiturates Neg (NEG) Urine Phencyclidine Screen Neg (NEG) Urine Amphetamine/Methamphetamine Neg (NEG) Urine Benzodiazepines Screen Neg (NEG) Urine Cocaine Screen Neg (NEG) Urine Cannabinoids Screen Neg (NEG) Urine Ethyl Alcohol Neg (NEG) Laboratory Tests Test 07/16/19 07:13 07/16/19 08:10 07/16/19 09:10 White Blood Count 5.9 x10^3/uL (4.0-11.0) Red Blood Count 5.19 x10^6/uL (3.50-5.40) Hemoglobin 10.0 g/dL (12.0-15.5) Hematocrit 30.9 % (36.0-47.0) Mean Corpuscular Volume 60 fL (79-100) Mean Corpuscular Hemoglobin 19 pg (25-35) Mean Corpuscular Hemoglobin Concent 32 g/dL (31-37) Red Cell Distribution Width 16.2 % (11.5-14.5) Platelet Count 239 x10^3/uL (140-400) Neutrophils (%) (Auto) 61 % (31-73) Lymphocytes (%) (Auto) 29 % (24-48) Monocytes (%) (Auto) 8 % (0-9) Eosinophils (%) (Auto) 1 % (0-3) Basophils (%) (Auto) 1 % (0-3) Neutrophils # (Auto) 3.6 x10^3/uL (1.8-7.7) Lymphocytes # (Auto) 1.7 x10^3/uL (1.0-4.8) Monocytes # (Auto) 0.5 x10^3/uL (0.0-1.1) Eosinophils # (Auto) 0.1 x10^3/uL (0.0-0.7) Basophils # (Auto) 0.1 x10^3/uL (0.0-0.2) Platelet Estimate Adequate (ADEQUATE) Polychromasia Slight Hypochromasia Slight Poikilocytosis Anisocytosis Slight Microcytosis Marked Target Cells Present Tear Drop Cells Occ Ovalocytes Few Prothrombin Time 12.5 SEC (11.7-14.0) Prothromb Time International Ratio 1.0 (0.8-1.1) Sodium Level 126 mmol/L (136-145) Potassium Level 3.6 mmol/L (3.5-5.1) Chloride Level 90 mmol/L (98-107) Carbon Dioxide Level 27 mmol/L (21-32) Anion Gap 9 (6-14) Blood Urea Nitrogen 10 mg/dL (7-20) Creatinine 0.7 mg/dL (0.6-1.0) Estimated GFR (Cockcroft-Gault) 101.6 BUN/Creatinine Ratio 14 (6-20) Glucose Level 96 mg/dL (70-99) Calcium Level 9.0 mg/dL (8.5-10.1) Magnesium Level 1.9 mg/dL (1.8-2.4) Total Bilirubin 0.3 mg/dL (0.2-1.0) Aspartate Amino Transf (AST/SGOT) 17 U/L (15-37) Alanine Aminotransferase (ALT/SGPT) 10 U/L (14-59) Alkaline Phosphatase 75 U/L (46-116) Creatine Kinase 155 U/L (26-192) Troponin I Quantitative < 0.017 ng/mL (0.000-0.055) [id number] Natriuretic Peptide 128 pg/mL (0-124) Total Protein 7.1 g/dL (6.4-8.2) Albumin 3.5 g/dL (3.4-5.0) Albumin/Globulin Ratio 1.0 (1.0-1.7) Lactic Acid Level 0.8 mmol/L (0.4-2.0) Ammonia 11 mcmol/L (11-34) Thyroid Stimulating Hormone (TSH) 1.963 uIU/mL (0.358-3.74) Urine Collection Type Unknown Urine Color Yellow Urine Clarity Clear Urine pH 7.0 Urine Specific Reading 1.010 Urine Protein Negative mg/dL (NEG-TRACE) Urine Glucose (UA) Negative mg/dL (NEG) Urine Ketones (Stick) Negative mg/dL (NEG) Urine Blood Negative (NEG) Urine Nitrite Negative (NEG) Urine Bilirubin Negative (NEG) Urine Urobilinogen Dipstick 0.2 mg/dL (0.2 mg/dL) Urine Leukocyte Esterase Trace (NEG) Urine RBC 1-2 /HPF (0-2) Urine WBC 1-4 /HPF (0-4) Urine Squamous Epithelial Cells Mod /LPF Urine Bacteria Few /HPF (0-FEW) Urine Opiates Screen Neg (NEG) Urine Methadone Screen Neg (NEG) Urine Barbiturates Neg (NEG) Urine Phencyclidine Screen Neg (NEG) Urine Amphetamine/Methamphetamine Neg (NEG) Urine Benzodiazepines Screen Neg (NEG) Urine Cocaine Screen Neg (NEG) Urine Cannabinoids Screen Neg (NEG) Urine Ethyl Alcohol Neg (NEG) Assessment/Plan Assessment/Plan 1. Anemia. She has a microcytic anemia with a ? history of beta-thal trait +/- sickle trait. I would check iron studies and will send a hemoglobin el ectropheresis for evaluation. 2. Paget's Disease. This is a benign condition of the bone. Prior to performing extensive workup, it might be helpful to see what workup for this has been done in the past. ?prior bone scans/xrays and ?biopsy to give the di agnosis. Most of the time this is a clinical/radiographical diagnosis, but sometimes it can look concerning for malignancy on imaging making biopsy necessary. If the patient has Paget's disease, usually they are followed by endocrine. If no bone scan has ever been preformed it would be reasonable to pursue in the future. 3. Hyponatremia. Would defer management to primary team 4. HTN. As pr primary team 5. Continue Pain control. SHASHI BERG MD Jul 16, 2019 11:19
--- NOTE | 2019-07-16 14:35 | PDOC2 ---
CONSULT Date of Consult Date of Consult DATE: 07/16/19 TIME: 14:25 Reason for Consult Reason for Consult: HypoNatremia Source Source: Chart review History of Present Illness Reason for Visit: Chart review, Patient (Pt is very hard of hearing and not a great historian 64 yo female who was admitted to [facility] 5 years ago with diffuse back pain. During the course of that hospitalization she was diagnosed with Paget's disease. She has not followed up with anyone in regards to the Paget's since that time. She has a primary care doctor at [facility] She presented to the hospital with diffuse pain and tenderness everywhere. SHe also had elevated BP with SBP over 200 and hyponatremia and she was admitted. 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 She has had transfusions in the past due to anemia. 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 Good UOP per RN . No shortness of breath Past Medical History Cardiovascular: CHF, HTN Pulmonary: No pertinent hx CENTRAL NERVOUS SYSTEM: Dementia, Seizure, Other GI: No pertinent hx Heme/Onc: No pertinent hx Hepatobiliary: No pertinent hx Psych: No pertinent hx Musculoskeletal: Other Rheumatologic: No pertinent hx Infectious disease: No pertinent hx Renal/: No pertinent hx Endocrine: Diabetes Past Surgical History Past Surgical History: Other (LP, etc BMA biospy?) Family History Family History: Hypertension Social History No ALCOHOL: none Drugs: None Lives: with Family Current Problem List Problem List Problems Medical Problems: (1) Altered level of consciousness Status: Acute (2) Anemia Status: Acute (3) Dementia Status: Acute (4) Encephalomalacia Status: Acute (5) Hypertensive urgency Status: Acute (6) Hyponatremia Status: Acute Current Medications Current Medications Current Medications Fentanyl Citrate (Fentanyl 2ml Vial) 50 mcg 1X ONCE IVP Last administered on 07/16/19at 07:44; Start 07/16/19 at 07:45; Stop 07/16/19 at 07:46; Status DC Sodium Chloride 500 ml @ 500 mls/hr 1X ONCE IV Last administered on 07/16/19at 08:06; Start 07/16/19 at 08:30; Stop 07/16/19 at 09:29; Status DC Hydralazine HCl (Apresoline Inj) 10 mg 1X ONCE IVP Last administered on 07/16/19at 08:06; Start 07/16/19 at 08:30; Stop 07/16/19 at 08:31; Status DC Sodium Chloride 1,000 ml @ 100 mls/hr Q10H IV Last administered on 07/16/19at 09:36; Start 07/16/19 at 08:12; Stop 07/17/19 at 08:11 Furosemide (Lasix) 40 mg 1X ONCE IVP Last administered on 07/16/19 09:29; Start 07/16/19 at 08:15; Stop 07/16/19 at 08:21; Status DC Hydralazine HCl (Apresoline Inj) 10 mg PRN Q4HRS PRN IVP ELEVATED BP, SEE COMMENTS; Start 07/16/19 at 08:30 Fentanyl Citrate (Fentanyl 2ml Vial) 50 mcg PRN Q2HR PRN IVP MODERATE-SEVERE PAIN; Start 07/16/19 at 08:30 Oxycodone/ Acetaminophen (Percocet 5/325) 1 tab PRN Q4HRS PRN PO MODERATE-SEV ERE PAIN Last administered on 07/16/19at 09:28; Start 07/16/19 at 08:30 Aspirin (Children'S Aspirin) 81 mg DAILY PO Last administered on 07/16/19at 09:28; Start 07/16/19 at 09:00 Divalproex Sodium (Depakote) 500 mg BID PO Last administered on 07/16/19at 09:28; Start 07/16/19 at 09:00 Acetaminophen/ Hydrocodone Bitart (Lortab 7.5/325) 1 tab PRN Q6HRS PRN PO MOD- SEVERE PAIN, 2ND CHOICE; Start 07/16/19 at 08:30 Acetaminophen/ Hydrocodone Bitart (Lortab 7.5/325) 1 tab PRN Q6HRS PRN PO PAIN; Start 07/16/19 at 08:30; Stop 07/16/19 at 08:45; Status DC Metoprolol Succinate (Toprol Xl) 50 mg DAILY PO Last administered on 07/16/19at 09:27; Start 07/16/19 at 09:00 Polyethylene Glycol (miraLAX PACKET) 17 gm DAILY PO ; Start 07/16/19 at 09:00 Hyoscyamine (Anaspaz) 0.125 mg QID PO Last administered on 07/16/19at 14:10; Start 07/16/19 at 09:00 Losartan Potassium (Cozaar) 100 mg DAILY PO Last administered on 07/16/19at 09:26; Start 07/16/19 at 09:00 Pantoprazole Sodium (Protonix) 40 mg DAILYAC PO Last administered on 07/16/19at 09:28; Start 07/16/19 at 09:30 Active Scripts Active [place] 5-325 Tablet (Acetaminophen/Hydrocodone Bitart) 1 Each Tablet 1 Tab PO PRN Q12HR PRN Hydrocodone-Apap 7.5-325 (Hydrocodone Bit/Acetaminophen) 1 Tab Tablet 1 Tab PO PRN Q6HRS PRN 3 Days Hydrocodone-Apap 7.5-325 (Hydrocodone Bit/Acetaminophen) 1 Tab Tablet 1 Tab PO PRN Q6HRS PRN 3 Days Aspirin 81 Mg Tab.chew 1 Tab PO DAILY 30 Days Protonix (Pantoprazole Sodium) 20 Mg Tablet.dr 40 Mg PO DAILY 30 Days Metoprolol Succinate ( Xl ) (Metoprolol Succinate) 25 Mg Tab.er.24h 50 Mg PO DAILY 30 Days Divalproex Sodium 500 Mg Tablet.dr 1 Tab PO BID 30 Days Losartan Potassium 100 Mg Tablet 100 Mg PO DAILY 30 Days Miralax (Polyethylene Glycol 3350) 119 Gm Powder 1 Tbs PO DAILY 30 Days Levsin (Hyoscyamine Sulfate) 0.125 Mg Tablet 0.125 Mg PO QID 30 Days [place] 5-325 Tablet (Acetaminophen/Hydrocodone Bitart) 1 Each Tablet 1 Tab PO PRN Q6HRS PRN Allergies Allergies: Coded Allergies: [place] And Derivatives (Verified Allergy, Intermediate, 06/03/18) Penicillins (Verified Allergy, Intermediate, 06/03/18) ROS Review of System Unable to Obtain except as in HPI- Pt very hard of hearing and poor historian Physical Exam Physical Exam General: Alert, Oriented X3, Cooperative, No acute distress HEENT: Atraumatic, PERRLA, EOMI Neck supple Lungs: Clear to auscultation, Normal air movement Heart: S1S2, RRR, no gallops, no murmurs Abdomen: Normal bowel sounds, Soft, No tenderness, No hepatosplenomegaly, No masses Extremities: No clubbing, No cyanosis, No edema, Skin: No rashes Neuro: grossly normal No ogden Vital Signs Vital Signs Date Time Temp Pulse Resp B/P (MAP) Pulse Ox O2 Delivery O2 Flow Rate FiO2 07/16/19 11:00 98.1 65 20 192/93 (126) 98 Room Air 98.1 Assessment & Plan HypoNatremia- suspect pr-renal ? Chronic - baseline on 07/02/2019 was 130 No interval or prior labs available , Hold PPi if possible if no improvement with IVF - defer to primary Monitor response to IVF , R/O sidha as well TSH normal , UA unremarkable Check Ur and Serum os, Ur Lytes ,Close Monitoring of Na, strict I/o Anemia. ? history of beta-thal trait +/- sickle trait. Per hematology Paget's Disease HTN. primary managing Jorge RN at bedside Labs Labs Laboratory Tests Test 07/16/19 07:13 07/16/19 08:10 07/16/19 09:10 White Blood Count 5.9 x10^3/uL (4.0-11.0) Red Blood Count 5.19 x10^6/uL (3.50-5.40) Hemoglobin 10.0 g/dL (12.0-15.5) Hematocrit 30.9 % (36.0-47.0) Mean Corpuscular Volume 60 fL (79-100) Mean Corpuscular Hemoglobin 19 pg (25-35) Mean Corpuscular Hemoglobin Concent 32 g/dL (31-37) Red Cell Distribution Width 16.2 % (11.5-14.5) Platelet Count 239 x10^3/uL (140-400) Neutrophils (%) (Auto) 61 % (31-73) Lymphocytes (%) (Auto) 29 % (24-48) Monocytes (%) (Auto) 8 % (0-9) Eosinophils (%) (Auto) 1 % (0-3) Basophils (%) (Auto) 1 % (0-3) Neutrophils # (Auto) 3.6 x10^3/uL (1.8-7.7) Lymphocytes # (Auto) 1.7 x10^3/uL (1.0-4.8) Monocytes # (Auto) 0.5 x10^3/uL (0.0-1.1) Eosinophils # (Auto) 0.1 x10^3/uL (0.0-0.7) Basophils # (Auto) 0.1 x10^3/uL (0.0-0.2) Platelet Estimate Adequate (ADEQUATE) Polychromasia Slight Hypochromasia Slight Poikilocytosis Anisocytosis Slight Microcytosis Marked Target Cells Present Tear Drop Cells Occ Ovalocytes Few Prothrombin Time 12.5 SEC (11.7-14.0) Prothromb Time International Ratio 1.0 (0.8-1.1) Sodium Level 126 mmol/L (136-145) Potassium Level 3.6 mmol/L (3.5-5.1) Chloride Level 90 mmol/L (98-107) Carbon Dioxide Level 27 mmol/L (21-32) Anion Gap 9 (6-14) Blood Urea Nitrogen 10 mg/dL (7-20) Creatinine 0.7 mg/dL (0.6-1.0) Estimated GFR (Cockcroft-Gault) 101.6 BUN/Creatinine Ratio 14 (6-20) Glucose Level 96 mg/dL (70-99) Calcium Level 9.0 mg/dL (8.5-10.1) Magnesium Level 1.9 mg/dL (1.8-2.4) Iron Level 45 ug/dL (50-170) Total Iron Binding Capacity 244 ug/dL (250-450) Iron Saturation 18 % (15-34) Ferritin 155 ng/mL (8-252) Total Bilirubin 0.3 mg/dL (0.2-1.0) Aspartate Amino Transf (AST/SGOT) 17 U/L (15-37) Alanine Aminotransferase (ALT/SGPT) 10 U/L (14-59) Alkaline Phosphatase 75 U/L (46-116) Creatine Kinase 155 U/L (26-192) Troponin I Quantitative < 0.017 ng/mL (0.000-0.055) HD-Aee-A-Type Natriuretic Peptide 128 pg/mL (0-124) Total Protein 7.1 g/dL (6.4-8.2) Albumin 3.5 g/dL (3.4-5.0) Albumin/Globulin Ratio 1.0 (1.0-1.7) Lactic Acid Level 0.8 mmol/L (0.4-2.0) Ammonia 11 mcmol/L (11-34) Thyroid Stimulating Hormone (TSH) 1.963 uIU/mL (0.358-3.74) Urine Collection Type Unknown Urine Color Yellow Urine Clarity Clear Urine pH 7.0 Urine Specific [place] 1.010 Urine Protein Negative mg/dL (NEG-TRACE) Urine Glucose (UA) Negative mg/dL (NEG) Urine Ketones (Stick) Negative mg/dL (NEG) Urine Blood Negative (NEG) Urine Nitrite Negative (NEG) Urine Bilirubin Negative (NEG) Urine Urobilinogen Dipstick 0.2 mg/dL (0.2 mg/dL) Urine Leukocyte Esterase Trace (NEG) Urine RBC 1-2 /HPF (0-2) Urine WBC 1-4 /HPF (0-4) Urine Squamous Epithelial Cells Mod /LPF Urine Bacteria Few /HPF (0-FEW) Urine Opiates Screen Neg (NEG) Urine Methadone Screen Neg (NEG) Urine Barbiturates Neg (NEG) Urine Phencyclidine Screen Neg (NEG) Urine Amphetamine/Methamphetamine Neg (NEG) Urine Benzodiazepines Screen Neg (NEG) Urine Cocaine Screen Neg (NEG) Urine Cannabinoids Screen Neg (NEG) Urine Ethyl Alcohol Neg (NEG) Laboratory Tests Test 07/16/19 07:13 07/16/19 08:10 07/16/19 09:10 White Blood Count 5.9 x10^3/uL (4.0-11.0) Red Blood Count 5.19 x10^6/uL (3.50-5.40) Hemoglobin 10.0 g/dL (12.0-15.5) Hematocrit 30.9 % (36.0-47.0) Mean Corpuscular Volume 60 fL (79-100) Mean Corpuscular Hemoglobin 19 pg (25-35) Mean Corpuscular Hemoglobin Concent 32 g/dL (31-37) Red Cell Distribution Width 16.2 % (11.5-14.5) Platelet Count 239 x10^3/uL (140-400) Neutrophils (%) (Auto) 61 % (31-73) Lymphocytes (%) (Auto) 29 % (24-48) Monocytes (%) (Auto) 8 % (0-9) Eosinophils (%) (Auto) 1 % (0-3) Basophils (%) (Auto) 1 % (0-3) Neutrophils # (Auto) 3.6 x10^3/uL (1.8-7.7) Lymphocytes # (Auto) 1.7 x10^3/uL (1.0-4.8) Monocytes # (Auto) 0.5 x10^3/uL (0.0-1.1) Eosinophils # (Auto) 0.1 x10^3/uL (0.0-0.7) Basophils # (Auto) 0.1 x10^3/uL (0.0-0.2) Platelet Estimate Adequate (ADEQUATE) Polychromasia Slight Hypochromasia Slight Poikilocytosis Anisocytosis Slight Microcytosis Marked Target Cells Present Tear Drop Cells Occ Ovalocytes Few Prothrombin Time 12.5 SEC (11.7-14.0) Prothromb Time International Ratio 1.0 (0.8-1.1) Sodium Level 126 mmol/L (136-145) Potassium Level 3.6 mmol/L (3.5-5.1) Chloride Level 90 mmol/L (98-107) Carbon Dioxide Level 27 mmol/L (21-32) Anion Gap 9 (6-14) Blood Urea Nitrogen 10 mg/dL (7-20) Creatinine 0.7 mg/dL (0.6-1.0) Estimated GFR (Cockcroft-Gault) 101.6 BUN/Creatinine Ratio 14 (6-20) Glucose Level 96 mg/dL (70-99) Calcium Level 9.0 mg/dL (8.5-10.1) Magnesium Level 1.9 mg/dL (1.8-2.4) Iron Level 45 ug/dL (50-170) Total Iron Binding Capacity 244 ug/dL (250-450) Iron Saturation 18 % (15-34) Ferritin 155 ng/mL (8-252) Total Bilirubin 0.3 mg/dL (0.2-1.0) Aspartate Amino Transf (AST/SGOT) 17 U/L (15-37) Alanine Aminotransferase (ALT/SGPT) 10 U/L (14-59) Alkaline Phosphatase 75 U/L (46-116) Creatine Kinase 155 U/L (26-192) Troponin I Quantitative < 0.017 ng/mL (0.000-0.055) CG-Qke-A-Type Natriuretic Peptide 128 pg/mL (0-124) Total Protein 7.1 g/dL (6.4-8.2) Albumin 3.5 g/dL (3.4-5.0) Albumin/Globulin Ratio 1.0 (1.0-1.7) Lactic Acid Level 0.8 mmol/L (0.4-2.0) Ammonia 11 mcmol/L (11-34) Thyroid Stimulating Hormone (TSH) 1.963 uIU/mL (0.358-3.74) Urine Collection Type Unknown Urine Color Yellow Urine Clarity Clear Urine pH 7.0 Urine Specific [place] 1.010 Urine Protein Negative mg/dL (NEG-TRACE) Urine Glucose (UA) Negative mg/dL (NEG) Urine Ketones (Stick) Negative mg/dL (NEG) Urine Blood Negative (NEG) Urine Nitrite Negative (NEG) Urine Bilirubin Negative (NEG) Urine Urobilinogen Dipstick 0.2 mg/dL (0.2 mg/dL) Urine Leukocyte Esterase Trace (NEG) Urine RBC 1-2 /HPF (0-2) Urine WBC 1-4 /HPF (0-4) Urine Squamous Epithelial Cells Mod /LPF Urine Bacteria Few /HPF (0-FEW) Urine Opiates Screen Neg (NEG) Urine Methadone Screen Neg (NEG) Urine Barbiturates Neg (NEG) Urine Phencyclidine Screen Neg (NEG) Urine Amphetamine/Methamphetamine Neg (NEG) Urine Benzodiazepines Screen Neg (NEG) Urine Cocaine Screen Neg (NEG) Urine Cannabinoids Screen Neg (NEG) Urine Ethyl Alcohol Neg (NEG) Review All relevant outside records, renal labs, imaging studies, telemetry/EKG's were reviewed. MICHAEL ASHFORD MD Jul 16, 2019 14:35
[2019-07-16 15:00] VITALS: BP 186/88
[2019-07-16 16:35] LABS: CALCIUM 8.3 mg/dL (8.5-10.1); CREATININE 1.1 mg/dL (0.6-1.0); GFR 60.3; POTASSIUM 3.3 mmol/L (3.5-5.1)
[2019-07-16] MEDS: hydrALAZINE 20 MG/ML VIAL. IVP PRN (18:09)
[2019-07-16 19:20] VITALS: BP 192/88
[2019-07-16 23:00] VITALS: BP 192/88
[2019-07-17] VITALS (7 sets, daily range): BP systolic 122–212; BP diastolic 74–111
[2019-07-17] MEDS: HYDROcodone/APAP 7.5/325MG 1 TAB TABLET PO PRN ×2 (02:05→20:28)
[2019-07-17] MEDS: hydrALAZINE 20 MG/ML VIAL. IVP PRN ×3 (03:14→20:19)
[2019-07-17 04:07] LABS: HEMOGLOBIN A1C 5.6 % (4.8-5.6)
[2019-07-17] MEDS: IV NORMAL SALINE 1000ML BAG 1,000 ML IV SCH (04:12)
[2019-07-17 04:41] LABS: CALCIUM 8.6 mg/dL (8.5-10.1); CREATININE 0.9 mg/dL (0.6-1.0); POTASSIUM 3.4 mmol/L (3.5-5.1)
[2019-07-17] MEDS: POLYETHYLENE GLYCOL 3350 17 GM PACKET. PO SCH (09:00)
[2019-07-17] MEDS: HYOSCYAMINE 0.125 MG TAB.RAPDIS PO SCH ×4 (09:11→20:19)
[2019-07-17] MEDS: PANTOPRAZOLE 40 MG TABLET.DR. PO SCH (09:11)
[2019-07-17] MEDS: ASPIRIN CHEWABLE 81 MG TABLET. PO SCH (09:11)
[2019-07-17] MEDS: LOSARTAN POTASSIUM 50 MG TABLET. PO SCH (09:11)
[2019-07-17] MEDS: DIVALPROEX DELAYED RELEASE 500 MG TABLET.DR. PO SCH ×2 (09:12→20:19)
[2019-07-17] MEDS: METOPROLOL SUCC 24HR ER 25 MG TAB.ER.24H. PO SCH (09:12)
--- NOTE | 2019-07-17 09:49 | PDOC ---
SUBJECTIVE Subjective S: near deaf O: Physical exam: Gen.: elderly female on bedside commode in NAD, though tearful Lungs: Breathing comfortably w/o resp distress Psychiatric: Pleasant but seemingly confused, extremely hard of hearing Labs: Prior records in care everywhere did show a prior hemoglobin electrophoresis consistent with beta thalassemia trait, her ferritin was 155 and her iron sat was 18% and the TIBC is low, hemoglobin of 10 and MCV of 60 Assessment and Plan: Anemia. She has a microcytic anemia with a history of beta-thal trait, ferr is adequate Paget's Disease. This is a benign condition of the bone. gets pain meds per her PCM at , can see endo prn as outpt, currently has pain meds prn Hyponatremia. Would defer management to primary team HTN. poorly controlled as outp, As per primary team Dispo: per others, f/u w/ PCM upon d/c Thank you kindly and please do not hesitate to call with further questions. OBJECTIVE Vital Signs Vital Signs Date Time Temp Pulse Resp B/P (MAP) Pulse Ox O2 Delivery O2 Flow Rate FiO2 07/17/19 09:12 78 202/88 07/17/19 09:11 78 202/88 07/17/19 07:00 98.1 78 18 202/ (126) 98 Room Air 98.1 07/17/19 04:06 72 173/81 (111) 07/17/19 03:14 63 212/100 07/17/19 03:00 98.6 66 20 212/100 (137) 99 Room Air 98.6 07/16/19 23:00 98.9 78 20 192/88 (122) 98 Room Air 98.9 07/16/19 20:00 Room Air 07/16/19 19:20 98.8 85 20 192/88 (122) 98 Room Air 98.8 07/16/19 19:15 Room Air 07/16/19 18:09 66 186/88 07/16/19 18:07 Room Air 07/16/19 15:00 98.4 57 20 186/88 (120) 96 Room Air 98.4 07/16/19 11:00 98.1 65 20 192/93 (126) 98 Room Air 98.1 07/16/19 10:30 Room Air I & O Intake and Output 07/17/19 07:00 Intake Total 850 ml Output Total 3750 ml Balance -2900 ml Intake Oral 100 ml IV Total 750 ml Output Urine Total 3750 ml COMMENT Lab Laboratory Tests Test 07/16/19 16:10 07/17/19 03:30 Sodium Level 131 mmol/L (136-145) 139 mmol/L (136-145) Potassium Level 3.3 mmol/L (3.5-5.1) 3.4 mmol/L (3.5-5.1) Chloride Level 95 mmol/L (98-107) 102 mmol/L (98-107) Carbon Dioxide Level 27 mmol/L (21-32) 29 mmol/L (21-32) Anion Gap 9 (6-14) 8 (6-14) Blood Urea Nitrogen 10 mg/dL (7-20) 10 mg/dL (7-20) Creatinine 1.1 mg/dL (0.6-1.0) 0.9 mg/dL (0.6-1.0) Estimated GFR (Cockcroft-Gault) 60.3 76.0 Glucose Level 108 mg/dL (70-99) 116 mg/dL (70-99) Calcium Level 8.3 mg/dL (8.5-10.1) 8.6 mg/dL (8.5-10.1) RONNY SAAB MD Jul 17, 2019 09:48
[2019-07-17] MEDS ORDERED: POTASSIUM CHLORIDE 20 MEQ TABLET.ER. PO ONE (11:00)
--- NOTE | 2019-07-17 11:04 | PDOC ---
SUBJECTIVE ROS Stable OBJECTIVE Vital Signs Vital Signs Date Time Temp Pulse Resp B/P (MAP) Pulse Ox O2 Delivery O2 Flow Rate FiO2 07/17/19 10:43 98.3 75 16 148/111 (123) 98 Room Air 98.3 I & 0 Intake and Output 07/17/19 07:00 Intake Total 850 ml Output Total 3750 ml Balance -2900 ml Intake Oral 100 ml IV Total 750 ml Output Urine Total 3750 ml PHYSICAL EXAM Physical Exam General:No acute distress HEENT: Atraumatic, PERRLA, EOMI Neck supple Lungs: Clear to auscultation, Normal air movement Heart: S1S2, RRR, no gallops, no murmurs Abdomen: Normal bowel sounds, Soft, No tenderness, No hepatosplenomegaly, No masses Extremities: No clubbing, No cyanosis, No edema, Skin: No rashes Neuro: grossly normal No ogden DIAGNOSIS/ASSESSMENT Assessment & Plan HypoNatremia- Pre-renal , resolved TSH normal , UA unremarkable HypoKalemia- mild Replace as needed Anemia. ? history of beta-thal trait +/- sickle trait. Per hematology Paget's Disease HTN. primary managing Will sign off COMMENT/RELEVANT DATA Meds Current Medications Medications (Trade) Dose Ordered Sig/Anat Start Time Stop Time Status Last Admin Dose Admin Acetaminophen/ Hydrocodone Bitart (Lortab 7.5/325) 1 tab PRN Q6HRS PRN 07/16/19 08:30 07/16/19 08:45 DC Amlodipine Besylate (Norvasc) 10 mg DAILY 07/17/19 11:00 Aspirin (Children'S Aspirin) 81 mg DAILY 07/16/19 09:00 07/17/19 09:11 81 MG Divalproex Sodium (Depakote) 500 mg BID 07/16/19 09:00 07/17/19 09:12 500 MG Fentanyl Citrate (Fentanyl 2ml Vial) 50 mcg PRN Q2HR PRN 07/16/19 08:30 Furosemide (Lasix) 40 mg 1X ONCE 07/16/19 08:15 07/16/19 08:21 DC 07/16/19 09:29 40 MG Hydralazine HCl (Apresoline Inj) 10 mg PRN Q4HRS PRN 07/16/19 08:30 07/17/19 03:14 10 MG Hyoscyamine (Anaspaz) 0.125 mg QID 07/16/19 09:00 07/17/19 09:11 0.125 MG Losartan Potassium (Cozaar) 100 mg DAILY 07/16/19 09:00 07/17/19 09:11 100 MG Metoprolol Succinate (Toprol Xl) 50 mg DAILY 07/16/19 09:00 07/17/19 09:12 50 MG Oxycodone/ Acetaminophen (Percocet 5/325) 1 tab PRN Q4HRS PRN 07/16/19 08:30 07/16/19 18:07 1 TAB Pantoprazole Sodium (Protonix) 40 mg DAILYAC 07/16/19 09:30 07/17/19 09:11 40 MG Polyethylene Glycol (miraLAX PACKET) 17 gm DAILY 07/16/19 09:00 Potassium Chloride (Klor-Con) 40 meq 1X ONCE 07/17/19 11:00 07/17/19 11:01 Sodium Chloride 1,000 ml @ 100 mls/hr Q10H 07/16/19 08:12 07/17/19 08:11 DC 07/17/19 04:12 100 MLS/HR Lab Laboratory Tests Test 07/16/19 16:10 07/17/19 03:30 Sodium Level 131 mmol/L (136-145) 139 mmol/L (136-145) Potassium Level 3.3 mmol/L (3.5-5.1) 3.4 mmol/L (3.5-5.1) Chloride Level 95 mmol/L (98-107) 102 mmol/L (98-107) Carbon Dioxide Level 27 mmol/L (21-32) 29 mmol/L (21-32) Anion Gap 9 (6-14) 8 (6-14) Blood Urea Nitrogen 10 mg/dL (7-20) 10 mg/dL (7-20) Creatinine 1.1 mg/dL (0.6-1.0) 0.9 mg/dL (0.6-1.0) Estimated GFR (Cockcroft-Gault) 60.3 76.0 Glucose Level 108 mg/dL (70-99) 116 mg/dL (70-99) Calcium Level 8.3 mg/dL (8.5-10.1) 8.6 mg/dL (8.5-10.1) Results All relevant outside records, renal labs, imaging studies, telemetry/EKG's were reviewed. MICHAEL ASHFORD MD Jul 17, 2019 11:04
[2019-07-17] MEDS: amLODIPine BESYLATE 10 MG TABLET PO SCH (12:16)
[2019-07-17 15:10] LABS: SODIUM, URINE 28 mmol/L (Not Estab.); UR POTASSIUM 8.9 mmol/L (Not Estab.)
[2019-07-18] VITALS (9 sets, daily range): BP systolic 159–220; BP diastolic 73–93
[2019-07-18] MEDS: hydrALAZINE 20 MG/ML VIAL. IVP PRN (04:01)
[2019-07-18] MEDS: DIVALPROEX DELAYED RELEASE 500 MG TABLET.DR. PO SCH (07:51)
[2019-07-18] MEDS: METOPROLOL SUCC 24HR ER 25 MG TAB.ER.24H. PO SCH (07:55)
[2019-07-18] MEDS: LOSARTAN POTASSIUM 50 MG TABLET. PO SCH (07:56)
[2019-07-18] MEDS: amLODIPine BESYLATE 10 MG TABLET PO SCH (07:57)
[2019-07-18] MEDS: HYDROcodone/APAP 7.5/325MG 1 TAB TABLET PO PRN ×2 (07:57→16:34)
[2019-07-18] MEDS: PANTOPRAZOLE 40 MG TABLET.DR. PO SCH (07:58)
[2019-07-18] MEDS: POLYETHYLENE GLYCOL 3350 17 GM PACKET. PO SCH (07:58)
[2019-07-18] MEDS: ASPIRIN CHEWABLE 81 MG TABLET. PO SCH (07:58)
[2019-07-18] MEDS: HYOSCYAMINE 0.125 MG TAB.RAPDIS PO SCH ×3 (07:58→17:47)
[2019-07-18] MEDS ORDERED: ACETAMINOPHEN 500 MG TABLET PO PRN (08:45)
[2019-07-18] MEDS ORDERED: ONDANSETRON PF 4 MG/2 ML VIAL. IVP PRN (08:45)
[2019-07-18] MEDS ORDERED: POTASSIUM CHLORIDE 20 MEQ TABLET.ER. PO ONE (08:45)
--- NOTE | 2019-07-18 08:55 | NUR ---
SW following pt for dc planning. Chart reviewed and discussed with RN. Pt lives at home with family and is MI'KMAQ. PT/OT recommends SNU. SW spoke with pt's daughter, Ijeoma: [phone] and discussed options, insurance coverage. Pt's daughter reported pt might prefer home health but she will talk with her mom when she visits today. SW will continue to follow.
--- NOTE | 2019-07-18 09:51 | PDOC ---
PROGRESS NOTES Chief Complaint Chief Complaint HTN emergency = SBP 200s HYponatremai, could be SIADH - at least order CXR in this HTN pt Met enceph - altered MS was the initial complaint, RESOLVED PAgets dse, stable, KU ff up History of Present Illness History of Present Illness Dancing this AM Wants to go home PT recs SNU per eval yesterday SBP 220s, no sxs PLAN: Inc BB to 100 qD from 50 PO qD Add prn labetalol PT to reassess/work with her again SW consulted re SNU recommendations, there is a dtr, pt might not agree to SNU homer RN Andrae Vitals Vitals Vital Signs Date Time Temp Pulse Resp B/P (MAP) Pulse Ox O2 Delivery O2 Flow Rate FiO2 07/18/19 09:08 96 Room Air 07/18/19 07:57 86 226/93 07/18/19 07:00 97.9 18 97.9 Physical Exam General: Alert, Oriented X3, Cooperative Heart: Regular rate, Normal S1 Lungs: Clear Abdomen: Normal bowel sounds, Soft Extremities: No clubbing, No cyanosis Skin: No rashes, No breakdown, No significant lesion Review of Systems Review of Systems neg 14 pt reviewed with her Assessment and Plan Assessmemt and Plan Problems Medical Problems: (1) Altered level of consciousness Status: Acute (2) Anemia Status: Acute (3) Dementia Status: Acute (4) Encephalomalacia Status: Acute (5) Hypertensive urgency Status: Acute (6) Hyponatremia Status: Acute Comment Review of Relevant I have reviewed the following items iron (where applicable) has been applied. Labs Laboratory Tests Test 07/16/19 16:10 07/16/19 16:50 07/17/19 03:30 Sodium Level 131 mmol/L (136-145) 139 mmol/L (136-145) Potassium Level 3.3 mmol/L (3.5-5.1) 3.4 mmol/L (3.5-5.1) Chloride Level 95 mmol/L (98-107) 102 mmol/L (98-107) Carbon Dioxide Level 27 mmol/L (21-32) 29 mmol/L (21-32) Anion Gap 9 (6-14) 8 (6-14) Blood Urea Nitrogen 10 mg/dL (7-20) 10 mg/dL (7-20) Creatinine 1.1 mg/dL (0.6-1.0) 0.9 mg/dL (0.6-1.0) Estimated GFR (Cockcroft-Gault) 60.3 76.0 Glucose Level 108 mg/dL (70-99) 116 mg/dL (70-99) Calcium Level 8.3 mg/dL (8.5-10.1) 8.6 mg/dL (8.5-10.1) Urine Sodium 28 mmol/L (Not Estab.) Urine Potassium 8.9 mmol/L (Not Estab.) Urine Chloride <20 mmol/L (Not Estab.) Medications Current Medications Fentanyl Citrate (Fentanyl 2ml Vial) 50 mcg 1X ONCE IVP Last administered on 07/16/19at 07:44; Start 07/16/19 at 07:45; Stop 07/16/19 at 07:46; Status DC Sodium Chloride 500 ml @ 500 mls/hr 1X ONCE IV Last administered on 07/16/19at 08:06; Start 07/16/19 at 08:30; Stop 07/16/19 at 09:29; Status DC Hydralazine HCl (Apresoline Inj) 10 mg 1X ONCE IVP Last administered on 07/16/19at 08:06; Start 07/16/19 at 08:30; Stop 07/16/19 at 08:31; Status DC Sodium Chloride 1,000 ml @ 100 mls/hr Q10H IV Last administered on 07/17/19at 04:12; Start 07/16/19 at 08:12; Stop 07/17/19 at 08:11; Status DC Furosemide (Lasix) 40 mg 1X ONCE IVP Last administered on 07/16/19at 09:29; Start 07/16/19 at 08:15; Stop 07/16/19 at 08:21; Status DC Hydralazine HCl (Apresoline Inj) 10 mg PRN Q4HRS PRN IVP ELEVATED BP, SEE COMMENTS Last administered on 07/18/19at 04:01; Start 07/16/19 at 08:30 Fentanyl Citrate (Fentanyl 2ml Vial) 50 mcg PRN Q2HR PRN IVP MODERATE-SEVERE PAIN; Start 07/16/19 at 08:30 Oxycodone/ Acetaminophen (Percocet 5/325) 1 tab PRN Q4HRS PRN PO MODERATE- SEVERE PAIN Last administered on 07/16/19 18:07; Start 07/16/19 at 08:30 Aspirin (Children'S Aspirin) 81 mg DAILY PO Last administered on 07/18/19 07:58; Start 07/16/19 at 09:00 Divalproex Sodium (Depakote) 500 mg BID PO Last administered on 07/18/19 07:51; Start 07/16/19 at 09:00 Acetaminophen/ Hydrocodone Bitart (Lortab 7.5/325) 1 tab PRN Q6HRS PRN PO MOD- SEVERE PAIN, 2ND CHOICE Last administered on 07/18/19 07:57; Start 07/16/19 at 08:30 Acetaminophen/ Hydrocodone Bitart (Lortab 7.5/325) 1 tab PRN Q6HRS PRN PO PAIN; Start 07/16/19 at 08:30; Stop 07/16/19 at 08:45; Status DC Metoprolol Succinate (Toprol Xl) 50 mg DAILY PO Last administered on 07/18/19 07:55; Start 07/16/19 at 09:00 Polyethylene Glycol (miraLAX PACKET) 17 gm DAILY PO Last administered on 07/18/19 07:58; Start 07/16/19 at 09:00 Hyoscyamine (Anaspaz) 0.125 mg QID PO Last administered on 07/18/19 07:58; Start 07/16/19 at 09:00 Losartan Potassium (Cozaar) 100 mg DAILY PO Last administered on 07/18/19 07:56; Start 07/16/19 at 09:00 Pantoprazole Sodium (Protonix) 40 mg DAILYAC PO Last administered on 07/18/19 07:58; Start 07/16/19 at 09:30 Potassium Chloride (Klor-Con) 40 meq 1X ONCE PO Last administered on 07/17/19 12:17; Start 07/17/19 at 11:00; Stop 07/17/19 at 11:01; Status DC Amlodipine Besylate (Norvasc) 10 mg DAILY PO Last administered on 07/18/19 07:57; Start 07/17/19 at 11:00 Acetaminophen (Tylenol) 500 mg PRN Q6HRS PRN PO MILD PAIN / TEMP; Start 07/18/19 at 08:45 Ondansetron HCl (Zofran) 4 mg PRN Q6HRS PRN IVP NAUSEA/VOMITING; Start 07/18/19 at 08:45 Potassium Chloride (Klor-Con) 40 meq 1X ONCE PO Last administered on 07/18/19at 09:28; Start 07/18/19 at 08:45; Stop 07/18/19 at 08:47; Status DC Active Scripts Active [place] 5-325 Tablet (Acetaminophen/Hydrocodone Bitart) 1 Each Tablet 1 Tab PO PRN Q12HR PRN Hydrocodone-Apap 7.5-325 (Hydrocodone Bit/Acetaminophen) 1 Tab Tablet 1 Tab PO PRN Q6HRS PRN 3 Days Hydrocodone-Apap 7.5-325 (Hydrocodone Bit/Acetaminophen) 1 Tab Tablet 1 Tab PO PRN Q6HRS PRN 3 Days Aspirin 81 Mg Tab.chew 1 Tab PO DAILY 30 Days Protonix (Pantoprazole Sodium) 20 Mg Tablet.dr 40 Mg PO DAILY 30 Days Metoprolol Succinate ( Xl ) (Metoprolol Succinate) 25 Mg Tab.er.24h 50 Mg PO DAILY 30 Days Divalproex Sodium 500 Mg Tablet.dr 1 Tab PO BID 30 Days Losartan Potassium 100 Mg Tablet 100 Mg PO DAILY 30 Days Miralax (Polyethylene Glycol 3350) 119 Gm Powder 1 Tbs PO DAILY 30 Days Levsin (Hyoscyamine Sulfate) 0.125 Mg Tablet 0.125 Mg PO QID 30 Days [place] 5-325 Tablet (Acetaminophen/Hydrocodone Bitart) 1 Each Tablet 1 Tab PO PRN Q6HRS PRN Vitals/I & O Vital Sign - Last 24 Hours 07/17/19 07/17/19 07/17/19 07/17/19 10:43 12:16 14:45 14:59 Temp 98.3 99.0 98.3 99.0 Pulse 75 75 60 67 Resp 16 18 B/P (MAP) 148/111 (123) 148/111 216/87 122/97 (105) Pulse Ox 98 97 O2 Delivery Room Air Room Air 07/17/19 07/17/19 07/17/19 07/17/19 19:18 19:40 20:19 20:28 Temp 98.7 98.7 Pulse 76 76 Resp 18 B/P (MAP) 195/86 (122) 195/86 Pulse Ox 98 98 O2 Delivery Room Air Room Air Room Air 07/17/19 07/17/19 07/18/19 07/18/19 21:28 23:00 03:44 04:01 Temp 98.6 98.4 98.6 98.4 Pulse 82 80 80 Resp 18 16 B/P (MAP) 154/74 (100) 191/90 (123) 191/90 Pulse Ox 98 96 O2 Delivery Room Air Room Air Room Air 07/18/19 07/18/19 07/18/19 07/18/19 07:00 07:00 07:55 07:56 Temp 97.9 97.9 Pulse 83 89 81 Resp 18 B/P (MAP) 220/93 (135) 220/99 226/93 Pulse Ox 99 O2 Delivery Room Air Room Air 07/18/19 07/18/19 07/18/19 07:57 07:57 09:08 Pulse 86 B/P (MAP) 226/93 Pulse Ox 96 96 O2 Delivery Room Air Room Air Intake and Output 07/17/19 07/17/19 07/18/19 15:00 23:00 07:00 Intake Total 180 ml 2740 ml 900 ml Output Total 450 ml 300 ml Balance -270 ml 2740 ml 600 ml MUSTAPHA PENNY MD Jul 18, 2019 09:51
[2019-07-18] MEDS ORDERED: METOPROLOL TART IMMED RELEASE 50 MG TABLET. PO SCH (10:00)
[2019-07-18] MEDS ORDERED: LABETALOL 20 MG/4 ML DISP.SYRIN. IVP PRN (10:00)
[2019-07-18] MEDS ORDERED: METOPROLOL SUCC 24HR ER 25 MG TAB.ER.24H. PO ONE (10:00)
--- NOTE | 2019-07-18 11:21 | PDOC2 ---
ELDON STEVE GIG TENDER 07/18/19 1121: CARDIAC CONSULT DATE OF CONSULT Date of Consult DATE: 07/18/19 TIME: 10:57 REASON FOR CONSULT Reason for Consult: HTN REFERRING PHYSICIAN Referring Physician: Yasir SOURCE Source: Chart review, Patient HISTORY OF PRESENT ILLNESS HISTORY OF PRESENT ILLNESS This is a 64 yo female admitted for noted altered mental status. She is significant for past seizures with craniotomy and pagets disease. Consult is for uncontrolled HTN. No family is available for further details. She does not answer questions directly but pleasant and at times tangential focusing on her wanting to go home. No chest pain or SOA. Denies any significant pain currently although she suffers from chronic pain syndrome PAST MEDICAL HISTORY Past Medical History Cardiovascular: CHF, HTN Pulmonary: No pertinent hx CENTRAL NERVOUS SYSTEM: Dementia, Seizure, Other GI: No pertinent hx Heme/Onc: Anemia Hepatobiliary: No pertinent hx Psych: No pertinent hx Musculoskeletal: Pagets disease Rheumatologic: No pertinent hx Infectious disease: No pertinent hx Renal/: No pertinent hx Endocrine: Diabetes PAST SURGICAL HISTORY Past Surgical History: Other (LP, etc BMA biospy?) FAMILY HISTORY Family History: Hypertension SOCIAL HISTORY Smoke: No ALCOHOL: none Drugs: None Lives: with Family CURRENT MEDICATIONS CURRENT MEDICATIONS Current Medications Medications (Trade) Dose Ordered Sig/Anat Route PRN Reason Start Time Stop Time Status Last Admin Dose Admin Potassium Chloride (Klor-Con) 40 meq 1X ONCE PO 07/17/19 11:00 07/17/19 11:01 DC 07/17/19 12:17 Amlodipine Besylate (Norvasc) 10 mg DAILY PO 07/17/19 11:00 07/18/19 07:57 Potassium Chloride (Klor-Con) 40 meq 1X ONCE PO 07/18/19 08:45 07/18/19 08:47 DC 07/18/19 09:28 ALLERGIES ALLERGIES: Coded Allergies: [place] And Derivatives (Verified Allergy, Intermediate, 06/03/18) Penicillins (Verified Allergy, Intermediate, 06/03/18) ROS Review of System limited, unreliable due to cognitive impairment PHYSICAL EXAM General: Alert, Cooperative, No acute distress HEENT: Atraumatic, Mucous membr. moist/pink Lungs: Clear to auscultation, Normal air movement Heart: Regular rate (SR), Normal S1, Normal S2, No murmurs Abdomen: Soft, No tenderness, Other (obese) Extremities: No cyanosis, No edema Skin: No significant lesion Neuro: Normal speech, Sensation intact Psych/Mental Status: Mood NL MUSCULOSKELETAL: No joint tenderness, Osteoarthritic changes both hands VITALS/I&O VITALS/I&O: Vital Signs Date Time Temp Pulse Resp B/P (MAP) Pulse Ox O2 Delivery O2 Flow Rate FiO2 07/18/19 09:51 179/77 (111) 07/18/19 09:08 96 Room Air 07/18/19 07:57 86 07/18/19 07:00 97.9 18 97.9 I & O 07/17/19 07/17/19 07/18/19 15:00 23:00 07:00 Intake Total 180 ml 2740 ml 900 ml Output Total 450 ml 300 ml Balance -270 ml 2740 ml 600 ml ECHOCARDIOGRAM ECHOCARDIOGRAM <Conclusion> The left ventricle is normal size. The left ventricular systolic function is normal and the ejection fraction is within normal range. The Ejection Fraction is 60-65%. There is mild concentric left ventricular hypertrophy. There is no significant aortic valvular stenosis. Doppler and Color Flow revealed no significant aortic regurgitation. Doppler and Color-flow revealed trace mitral regurgitation. Doppler and Color Flow revealed trace tricuspid regurgitation. The PA pressure was estimated at 30 mmHg. DATE: 09/12/181533 ASSESSMENT/PLAN ASSESSMENT/PLAN 1. HTN urgency: possibly inadequate coverage 2. Hyponatremia: resolved 3. Cognitive impairment with past seizures and craniotomy: unclear details 4. Metabolic encephalopathy 5. Pagets disease 6. Obese Recommendations 1. Continue current BP regimen with losartan and norvasc. Toprol has been increased. Could utilize coreg instead if BP remains uncontrolled and/or add hydralazine. 2. Recent TTE reviewed. Renal duplex is a consideration if pt is able to coop erate. She is begging to go home currently 3. Dietitian consult to talk to daughter, primary caregiver for DASH diet 4. If she is not seeing any basting machine operator then may follow up in office. [place] could potentially go home this afternoon and recommend HBPM bid at home for further adjustment CHARLES VIRAMONTES MD 07/18/195: CARDIAC CONSULT ASSESSMENT/PLAN ASSESSMENT/PLAN Patient seen and examined. Agree with above nurse practitioner note. 64-year-old woman with cognitive impairment. I spoke extensively with her daughter on the phone today. From a purely cardiac standpoint she appears to have had her ejection fraction normalized compared to last year. Today she is in significant pain presumably from her Paget's disease but it is difficult to elicit the etiology given the patient's cognitive impairment. No obvious cardiac pathology noted thus far. I suspect her blood pressure is elevated due to her uncontrolled pain. We will plan for pain control aggressively and defer for the primary service for this goal and repeat blood pressure evaluation for about 12 hours after her pain is controlled and make further determinations if any additional agents are necessary. If additional medications are necessary we will choose hydralazine 25 mg by mouth 3 times a day and uptitrate as needed. ELDON STEVE APRN Jul 18, 2019 11:21 CHARLES VIRAMONTES MD Jul 18, 2019 15:35
[2019-07-18] MEDS ORDERED: AMLO10TA8 PO (12:03)
[2019-07-18] MEDS ORDERED: METO-247 PO (12:04)
[2019-07-18] MEDS: oxyCODONE/APAP 5/325 1 TAB TABLET PO PRN ×2 (12:32→19:23)
--- NOTE | 2019-07-18 19:35 | NUR ---
Reviewed DC orders with daughter at bedside. Daughter verbalized understanding. Patient dressed in street clothes with assit. IV taken out and 2x2 applied to puncture site. Patient transferred into with standby assist. Wheeled patient to 2nd floor front exit. Patient transferred self to [facility] car with standby assist from to car. All belongings and discharge orders in hand.
[2019-07-19] MEDS ORDERED: METOPROLOL SUCC 24HR ER 100 MG TAB.ER.24H. PO SCH (09:00)
[2019-07-19] MEDS ORDERED: HYDR-2765 PO (15:37)
[2019-07-21 16:09] LABS: HGB ELECROPHORESIS COMMENT Note: (.)
--- NOTE | 2019-07-22 11:48 | DS ---
DATE OF DISCHARGE: 07/17/2019 ADMISSION DIAGNOSIS: Hyponatremia. DISCHARGE DIAGNOSIS: Resolving hyponatremia with mental status change secondary to hyponatremia. HOSPITAL COURSE: The patient is a pleasant 64-year-old female who presented with hyponatremia of 126. We admitted the patient, did IV normal saline. Her sodium level came up to 137. She was at her baseline, we discharged to home. DISPOSITION: Home. ACTIVITY: As tolerated. DIET: Regular diet. MEDICATIONS: Please see MRAD. TOTAL TIME: 32 minutes. TIM FERGUSON DO DR: MACO/giorgio JOB#: [id number] / [id number]
== END 2019-07-18 19:24 | disposition home or self-care (01) | DRG 640 ==
LOC: ER 06:56 → 2 SOUTH 07:52
PROVIDERS: ADMIT Internal Medicine; ATTEND Internal Medicine
DX: E87.1 Hypo-osmolality and hyponatremia (principal); G93.41 Metabolic encephalopathy; N17.0 Acute kidney failure with tubular necrosis; I16.1 Hypertensive emergency; D50.9 Iron deficiency anemia, unspecified; E11.9 Type 2 diabetes mellitus without complications; E66.9 Obesity, unspecified; M88.9 Osteitis deformans of unspecified bone; F03.90 Unspecified dementia, unspecified severity, without behavioral disturbance, psychotic disturbance, mood disturbance, and anxiety; G89.4 Chronic pain syndrome; G93.89 Other specified disorders of brain; H91.90 Unspecified hearing loss, unspecified ear; I11.0 Hypertensive heart disease with heart failure; I50.9 Heart failure, unspecified; Z79.899 Other long term (current) drug therapy; Z82.49 Family history of ischemic heart disease and other diseases of the circulatory system; Z68.36 Body mass index [BMI] 36.0-36.9, adult
CPT/HCPCS: 36415; 70450; 71045; 80048; 80053; 80307; 81001; 82140; 82436; 82550; 82728; 83020; 83036; 83540; 83550; 83605; 83735; 83880; 83930; 83935; 84133; 84300; 84443; 84484; 85025; 85610; 87086; 96361; 96374; 96375; J0360; J1940; J2060; J3010; J7030; J7040; 97116; 99285-25; G0378

== ENCOUNTER 2019-08-10 05:45 | Emergency (ER) | payer MEDICARE ==
[~2019-08-10 05:45] MED LIST changes: +AMLO10TA8 PO; +METO-247 PO
[2019-08-10] MEDS: ONDANSETRON PF 4 MG/2 ML VIAL. IV ONE (06:44)
[2019-08-10] MEDS: MORPHINE SULFATE 4 MG/ML VIAL. IV ONE (06:44)
[2019-08-10] MEDS: cloNIDine HCL 0.1 MG TABLET PO ONE (06:45)
[2019-08-10] MEDS: amLODIPine BESYLATE 5 MG TABLET PO ONE (06:46)
[2019-08-10] MEDS: IV NORMAL SALINE 1000ML BAG 1,000 ML IV ONE (06:46)
--- NOTE | 2019-08-10 06:59 | PHYS DOC ---
Past Medical History Past Medical History: CHF, Dementia, Diabetes-Type II, Hypertension, P.U.D., Seizure, Other Additional Past Medical Histor: paci menegitis of the brain, paget's disease, sickle beta thalacemia Past Surgical History: Cholecystectomy, , Other Additional Past Surgical Histo: fluid removal brain Alcohol Use: None Drug Use: None Adult General Chief Complaint Chief Complaint: BACK PAIN - NO INJURY HPI HPI Patient is a 64 year old female who is presenting with chief complaint of exacerbation of chronic back pain as well as elevated blood pressure. Patient has a history of Paget's disease of the back she has frequent flareups and when her back gets bad her blood pressure goes up this has happened to her several times before sister history was obtained from sister6 apparently has been about 2 weeks since her last dose of pain medication here due for a new refill on . No trauma no fever just the increasing back pain she woke up at 3 AM and she was in severe pain. History is limited by the patient's minimally verbal status which is her baseline Review of Systems Review of Systems History is limited by the patient's minimally verbal status which is her baseline Current Medications Current Medications Current Medications Medications (Trade) Dose Ordered Sig/Anat Start Time Stop Time Status Last Admin Dose Admin Amlodipine Besylate (Norvasc) 10 mg 1X ONCE 08/10/19 07:00 08/10/19 07:01 DC 08/10/19 06:46 10 MG Clonidine HCl (Catapres) 0.2 mg 1X ONCE 08/10/19 07:00 08/10/19 07:01 DC 08/10/19 06:45 0.2 MG Hydralazine HCl (Apresoline Inj) 10 mg 1X ONCE 08/10/19 08:15 08/10/19 08:16 DC 08/10/19 08:24 10 MG Hydromorphone HCl (Dilaudid) 1 mg 1X ONCE 08/10/19 07:15 08/10/19 07:16 DC 08/10/19 07:27 1 MG Lorazepam (Ativan Inj) 1 mg 1X ONCE 08/10/19 08:00 08/10/19 08:01 DC Morphine Sulfate (Morphine Sulfate) 4 mg 1X ONCE 08/10/19 07:00 08/10/19 07:01 DC 08/10/19 06:44 4 MG Ondansetron HCl (Zofran) 4 mg 1X ONCE 08/10/19 07:00 08/10/19 07:01 DC 08/10/19 06:44 4 MG Sodium Chloride 1,000 ml @ 1,000 mls/hr 1X ONCE 08/10/19 07:00 08/10/19 07:59 DC 08/10/19 06:46 1,000 MLS/HR Allergies Allergies Allergies Coded Allergies Type Severity Reaction Last Updated Verified [place] And Derivatives Allergy Intermediate 06/03/18 Yes Penicillins Allergy Intermediate 06/03/18 Yes Physical Exam Physical Exam Constitutional: Well developed, well nourished, tearful HENT: Normocephalic, atraumatic, bilateral external ears normal, oropharynx moist, no oral exudates, nose normal. [] Eyes: PERRLA, EOMI, conjunctiva normal, no discharge. [] Neck: Normal range of motion, no tenderness, supple, no stridor. [] Cardiovascular:Heart rate regular rhythm, no murmur [] Lungs & Thorax: Bilateral breath sounds clear to auscultation [] Abdomen: Bowel sounds normal, soft, no tenderness, no masses, no pulsatile masses. [] Skin: Warm, dry, no erythema, no rash. [] Back diffuse tenderness Extremities: No tenderness, no cyanosis, no clubbing, ROM intact, no edema. [] Neurologic: Alert and responsive patient is tearful does say some words saying blood pressure over and over again grossly moving all extremities detail examination is challenging due to the patient's crying an underlying baseline mental status Current Patient Data Vital Signs Vital Signs Date Time Temp Pulse Resp B/P (MAP) Pulse Ox O2 Delivery O2 Flow Rate FiO2 08/10/19 08:28 6 16 184/92 (122) 96 08/10/19 08:01 Room Air 08/10/19 06:01 99.2 99.2 Lab Values Laboratory Tests Test 08/10/19 06:55 White Blood Count 4.8 x10^3/uL (4.0-11.0) Red Blood Count 5.44 x10^6/uL (3.50-5.40) H Hemoglobin 10.6 g/dL (12.0-15.5) L Hematocrit 33.9 % (36.0-47.0) L Mean Corpuscular Volume 62 fL (79-100) L Mean Corpuscular Hemoglobin 20 pg (25-35) L Mean Corpuscular Hemoglobin Concent 31 g/dL (31-37) Red Cell Distribution Width 17.3 % (11.5-14.5) H Platelet Count 239 x10^3/uL (140-400) Neutrophils (%) (Auto) 54 % (31-73) Lymphocytes (%) (Auto) 36 % (24-48) Monocytes (%) (Auto) 5 % (0-9) Eosinophils (%) (Auto) 5 % (0-3) H Basophils (%) (Auto) 1 % (0-3) Neutrophils # (Auto) 2.6 x10^3/uL (1.8-7.7) Lymphocytes # (Auto) 1.7 x10^3/uL (1.0-4.8) Monocytes # (Auto) 0.2 x10^3/uL (0.0-1.1) Eosinophils # (Auto) 0.2 x10^3/uL (0.0-0.7) Basophils # (Auto) 0.1 x10^3/uL (0.0-0.2) Platelet Estimate Adequate (ADEQUATE) Hypochromasia Present Poikilocytosis Present Anisocytosis Slight Microcytosis Present Target Cells Present Urine Collection Type U cath Urine Color Yellow Urine Clarity Clear Urine pH 6.5 Urine Specific [place] 1.010 Urine Protein Negative mg/dL (NEG-TRACE) Urine Glucose (UA) Negative mg/dL (NEG) Urine Ketones (Stick) Negative mg/dL (NEG) Urine Blood Negative (NEG) Urine Nitrite Negative (NEG) Urine Bilirubin Negative (NEG) Urine Urobilinogen Dipstick 0.2 mg/dL (0.2 mg/dL) Urine Leukocyte Esterase Trace (NEG) Urine RBC Rare /HPF (0-2) Urine WBC Occ /HPF (0-4) Urine Squamous Epithelial Cells Mod /LPF Urine Bacteria 0 /HPF (0-FEW) Urine Mucus Slight /LPF Sodium Level 144 mmol/L (136-145) Potassium Level 3.7 mmol/L (3.5-5.1) Chloride Level 107 mmol/L (98-107) Carbon Dioxide Level 24 mmol/L (21-32) Anion Gap 13 (6-14) Blood Urea Nitrogen 9 mg/dL (7-20) Creatinine 1.1 mg/dL (0.6-1.0) H Estimated GFR (Cockcroft-Gault) 60.3 BUN/Creatinine Ratio 8 (6-20) Glucose Level 92 mg/dL (70-99) Calcium Level 9.1 mg/dL (8.5-10.1) Total Bilirubin 0.4 mg/dL (0.2-1.0) Aspartate Amino Transferase (AST) 12 U/L (15-37) L Alanine Aminotransferase (ALT) < 6 U/L (14-59) L Alkaline Phosphatase 66 U/L (46-116) Troponin I Quantitative < 0.017 ng/mL (0.000-0.055) Total Protein 7.2 g/dL (6.4-8.2) Albumin 3.5 g/dL (3.4-5.0) Albumin/Globulin Ratio 0.9 (1.0-1.7) L Laboratory Tests 08/10/19 06:55 Laboratory Tests 08/10/19 06:55 EKG EKG EKG did show a sinus rhythm rate of 56 no acute ischemic changes noted nonsp ecific changes lateral no STEMI interpreted by me time of encounter[] Radiology/Procedures Radiology/Procedures []ssion X-ray lumbar spine findings: AP, lateral and cone view of the lumbosacral spine is obtained. 5 nonrib-bearing vertebral bodies are identified. There is mild scoliosis of the lumbar spine with leftward concavity. There is minimal grade 1 anterolisthesis of L4 over L5 and L5 over S1. The vertebral body heights are maintained. There is narrowing of L5-S1 intervertebral disc space with vacuum disc phenomena. There is no acute compression fracture. Multilevel bilateral apophyseal joint hypertrophic changes are seen. IMPRESSION: Spondylotic changes and degenerative disc disease at L5-S1. No acute abnormality is noted. Electronically signed by: Ariella Roche MD (08/10/2019 8:35 AM) [facility] Impressions: End impression X-ray lumbar spine findings: AP, lateral and cone view of the lumbosacral spine is obtained. 5 nonrib-bearing vertebral bodies are identified. There is mild scoliosis of the lumbar spine with leftward concavity. There is minimal grade 1 anterolisthesis of L4 over L5 and L5 over S1. The vertebral body heights are maintained. There is narrowing of L5-S1 intervertebral disc space with vacuum disc phenomena. There is no acute compression fracture. Multilevel bilateral apophyseal joint hypertrophic changes are seen. IMPRESSION: Spondylotic changes and degenerative disc disease at L5-S1. No acute abnormality is noted. Electronically signed by: Ariella Roche MD (08/10/2019 8:35 AM) [facility] DICTATED and SIGNED BY: ARIELLA ROCHE MD DATE: 08/10/19 0839 Course & Med Decision Making Course & Med Decision Making Pertinent Labs and Imaging studies reviewed. 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 Presenting with chief complaint of exacerbation of her chronic low back pain. Has been off narcotics for couple of weeks at this point time we're checking labwork blood pressure is quite elevated this happens regularly with her previous exacerbations. Patient received clonidine amlodipine as well as a dose of morphine. At 7 AM she still a lot of pain so try a milligram of Dilaudid waiting for labs Final plan 9 AM patient is doing a lot better after the above treatment. She is resting comfortably she is smiling blood pressures down to the 170s systolic daughter tells me this is her baseline this is where she normally is. Apparently she ran out of her hydrocodone a little early she said that patient was mixing her medications and water she drinks a lot of water and they're due for a refill on this . I have given her a couple days worth of hydrocodone to go home. I talked in detail with the patient's family they are comfortable with her going home this specific situation with back pain and elevated blood pressure has happen several times before and she is much more comfortable at this time they feel he can manage her at home I think this is reasonable x-rays were negative acute. Dragon Disclaimer Dragon Disclaimer This electronic medical record was generated, in whole or in part, using a voice recognition dictation system. Departure Departure Impression: Primary Impression: Back pain Additional Impression: Hypertension Disposition: HOME, SELF-CARE Condition: STABLE Referrals: UNKNOWN PCP NAME (PCP) Scripts Hydrocodone/Apap 5-325 (NORCO 5-325 TABLET) 1 Each Tablet 1-2 EACH PO PRN Q6HRS PRN for PAIN, #15 as needed for pain Prov: ASHLI MATIAS MD 08/10/19 Problem Qualifiers ASHLI MATIAS MD Aug 10, 2019 06:59
[2019-08-10 07:09] LABS: BASO # 0.1 x10^3/uL (0.0-0.2); BASO % 1 % (0-3); EOS # 0.2 x10^3/uL (0.0-0.7); EOS % 5 % (0-3); HEMATOCRIT 33.9 % (36.0-47.0); HEMOGLOBIN 10.6 g/dL (12.0-15.5); LYMPH # 1.7 x10^3/uL (1.0-4.8); LYMPH % 36 % (24-48); MEAN CORPUSCULAR HEMOGLOBIN 20 pg (25-35); MEAN CORPUSCULAR HGB CONC 31 g/dL (31-37); MEAN CORPUSCULAR VOLUME 62 fL (79-100); MONO # 0.2 x10^3/uL (0.0-1.1); MONO % 5 % (0-9); NEUT # 2.6 x10^3/uL (1.8-7.7); NEUT % 54 % (31-73); PLATELET COUNT 239 x10^3/uL (140-400); RED BLOOD COUNT 5.44 x10^6/uL (3.50-5.40); RED CELL DISTRIBUTION WIDTH 17.3 % (11.5-14.5); WHITE BLOOD COUNT 4.8 x10^3/uL (4.0-11.0)
[2019-08-10 07:10] LABS: BILIRUBIN,URINE NEGATIVE (NEG); CLARITY,URINE CLEAR; COLOR,URINE YELLOW; NITRITE,URINE NEGATIVE (NEG); PH,URINE 6.5; PROTEIN,URINE NEGATIVE (NEG-TRACE); UROBILINOGEN,URINE 0.2 mg/dL (0.2 mg/dL)
[2019-08-10 07:19] LABS: ANION GAP 13 (6-14); BLOOD UREA NITROGEN 9 mg/dL (7-20); BUN/CREATININE RATIO 8 (6-20); CALCIUM 9.1 mg/dL (8.5-10.1); CARBON DIOXIDE 24 mmol/L (21-32); CHLORIDE 107 mmol/L (98-107); CREATININE 1.1 mg/dL (0.6-1.0); GFR 60.3; GLUCOSE 92 mg/dL (70-99); POTASSIUM 3.7 mmol/L (3.5-5.1); SODIUM 144 mmol/L (136-145)
[2019-08-10 07:22] LABS: BACTERIA,URINE 0 /HPF (0-FEW); RBC,URINE RARE /HPF (0-2); SQUAMOUS EPITHELIAL CELL,UR MOD /LPF; WBC,URINE OCC /HPF (0-4)
[2019-08-10 07:24] LABS: ALBUMIN 3.5 g/dL (3.4-5.0); ALBUMIN/GLOBULIN RATIO 0.9 (1.0-1.7); ALK PHOS 66 U/L (46-116); AST (SGOT) 12 U/L (15-37); TOTAL BILIRUBIN 0.4 mg/dL (0.2-1.0); TOTAL PROTEIN 7.2 g/dL (6.4-8.2)
[2019-08-10 07:25] LABS: ALT (SGPT) < 6 U/L (14-59)
[2019-08-10] MEDS: HYDROmorphone 2 MG/ML VIAL IV ONE (07:27)
[2019-08-10 07:38] LABS: ANISOCYTOSIS SLIGHT; HYPOCHROMIA PRESENT; MICROCYTOSIS PRESENT; PLT ESTIMATE ADEQUATE (ADEQUATE); POIKILOCYTOSIS PRESENT; TARGET CELLS PRESENT
[2019-08-10] MEDS: hydrALAZINE 20 MG/ML VIAL. IVP ONE (08:24)
--- NOTE | 2019-08-10 08:38 | RAD ---
Exam performed: One view chest and x-ray lumbar spine. Indication: Chest pain and back pain, history of Paget disease Date of Service: 08/10/2019 7:52 AM Comparison: One view chest from July 16, 2019. Single AP upright portable view chest findings: Cardiomediastinal silhouette is within limits of normal. No acute infiltrates, effusion or pneumothorax is detected. The bony structures are normal. Impression: No acute cardiopulmonary process is detected. End impression X-ray lumbar spine findings: AP, lateral and cone view of the lumbosacral spine is obtained. 5 nonrib-bearing vertebral bodies are identified. There is mild scoliosis of the lumbar spine with leftward concavity. There is minimal grade 1 anterolisthesis of L4 over L5 and L5 over S1. The vertebral body heights are maintained. There is narrowing of L5-S1 intervertebral disc space with vacuum disc phenomena. There is no acute compression fracture. Multilevel bilateral apophyseal joint hypertrophic changes are seen. IMPRESSION: Spondylotic changes and degenerative disc disease at L5-S1. No acute abnormality is noted. Electronically signed by: Ariella Roche MD (08/10/2019 8:35 AM) [facility]
[2019-08-10] MEDS ORDERED: HYDR-3164 PO (09:03)
[2019-08-10 09:12] VITALS: BP 183/85
--- NOTE | 2019-08-10 09:13 | EKG ---
[facility] [address] [place] [address] Test Date: 2019-08-10 Test Time: 07:43:03 Pat Name: SARITA BRANTLEY Department: Room: Gender: F [employer]: : [id number] Requested By: ASHLI MATIAS Order Number: [id number] Reading MD: Measurements Intervals [place] Rate: 55 P: 38 [place]: 144 QRS: -7 QRSD: 84 T: 32 QT: 416 QTc: 403 Interpretive Statements SINUS RHYTHM LEFTWARD AXIS MODERATE AMPLITUDE CRITERIA FOR LVH NON SPECIFIC T ABNORMALITY BORDERLINE ECG No previous ECG available for comparison
== END 2019-08-10 09:21 | disposition home or self-care (01) ==
LOC: ER 05:45
DX: G89.29 Other chronic pain (principal); M54.5 Low back pain; I11.0 Hypertensive heart disease with heart failure; I50.9 Heart failure, unspecified; F03.90 Unspecified dementia, unspecified severity, without behavioral disturbance, psychotic disturbance, mood disturbance, and anxiety; E11.9 Type 2 diabetes mellitus without complications; Z90.49 Acquired absence of other specified parts of digestive tract; Z88.0 Allergy status to penicillin; Z91.018 Allergy to other foods
CPT/HCPCS: 36415; 71045; 72100; 80053; 81001; 84484; 85025; 87086; 93005; 96374; 96375; 99285; J0360; J1170; J2270; J2405; J7030; P9612